=== PATIENT | male | born 1970 | race Caucasian/White ===

== ENCOUNTER 2016-06-29 15:34 | Emergency (ER) | payer SELFPAY ==
[~2016-06-29] VITALS: Ht 182.9 cm; Wt 148.0 kg
[2016-06-29] VITALS (7 sets, daily range): BP systolic 107–143; BP diastolic 51–87; PULSE 78–99; RESP 16–20; TEMP 97.7–99.1; O2SAT 95–97
[~2016-06-29 15:34] MED LIST: DESE1CRE TOP; HYDR-3533 PO; HYDR1CRE TOP
--- NOTE | 2016-06-29 17:01 | RADHPO ---
EXAM DATE/TIME: 06/29/2016 16:22 [facility] COMPARISON: No previous studies available for comparison. INDICATIONS : Left shoulder pain after fall. MEDICAL HISTORY : None. SURGICAL HISTORY : None. ENCOUNTER: Initial ACUITY: 1 day PAIN SCORE: 9/10 LOCATION: Left shoulder FINDINGS: Multiple view examination of the left shoulder demonstrates no evidence of fracture or dislocation. The glenohumeral and acromioclavicular joints are maintained. There is normal range of motion betwee n internal and external rotation. Bony mineralization is normal. CONCLUSION: Negative trauma study. Talha Frias MD on June 29, 2016 at 16:59 Board Certified Radiologist. This report was verified electronically.
[2016-06-29] MEDS ORDERED: cefTRIAXone INJ 1,000 MG in SODIUM CHLORIDE 0.9% INJ 100 ML IV ONE (19:15)
[2016-06-29] MEDS ORDERED: SODIUM CHLOR 0.9% 1000 ML INJ 1,000 ML IV SCH (19:15)
[2016-06-29] MEDS ORDERED: CLINDAMYCIN INJ 900 MG in SODIUM CHLORIDE 0.9% INJ 100 ML IV ONE (19:15)
[2016-06-29] MEDS ORDERED: MORPHINE SULFATE 8 MG/ML INJ IV PUSH ONE (19:15)
[2016-06-29] MEDS ORDERED: SODIUM CHLORIDE 0.9% FLUSH 5 ML FLUSH IVF PRN (19:15)
[2016-06-29 19:59] LABS: AUTOMATED NEUTROPHIL # 6.2 TH/MM3 (1.8-7.7); BASOPHIL # 0.1 TH/MM3 (0-0.2); BASOPHIL % 0.6 % (0.0-2.0); EOSINOPHIL # 0.2 TH/MM3 (0-0.4); EOSINOPHIL % 1.7 % (0.0-4.0); HEMATOCRIT 43.6 % (39.0-51.0); HEMO FLAGS DIFF FINAL; LYMPH % 27.3 % (9.0-44.0); LYMPHOCYTE # 2.9 TH/MM3 (1.0-4.8); MEAN CELL VOLUME 88.4 FL (80.0-100.0); MEAN CORPUSCULAR HEMOGLOBIN 30.4 PG (27.0-34.0); MEAN CORPUSCULAR HGB CONC 34.4 % (32.0-36.0); MONO % 10.9 % (0.0-8.0); NEUT % 59.5 % (16.0-70.0); PLATELET COUNT 232 TH/MM3 (150-450); RED BLOOD COUNT 4.93 MIL/MM3 (4.50-5.90); RED CELL DISTRIBUTION WIDTH 12.2 % (11.6-17.2); WHITE BLOOD COUNT 10.5 TH/MM3 (4.0-11.0)
[2016-06-29 20:08] LABS: CHLORIDE 101 MEQ/L (98-107); POTASSIUM 3.7 MEQ/L (3.5-5.1); SODIUM (NA) 136 MEQ/L (136-145)
[2016-06-29 20:12] LABS: ANION GAP 8 MEQ/L (5-15); BICARBONATE 26.6 MEQ/L (21.0-32.0); BLOOD UREA NITROGEN 11 MG/DL (7-18)
[2016-06-29 20:13] LABS: APTT (PATIENT) 30.1 SEC (24.3-30.1); PROTHROMBIN TIME - PATIENT 10.7 SEC (9.8-11.6)
[2016-06-29 20:14] LABS: ALT (GPT) 32 U/L (12-78)
[2016-06-29 20:15] LABS: AST (GOT) 14 U/L (15-37); GLOMERULAR FILTRATION RATE 81 ML/MIN (>89)
[2016-06-29 20:16] LABS: TOTAL BILIRUBIN ADULT 1.1 MG/DL (0.2-1.0)
[2016-06-29 20:17] LABS: ALKALINE PHOSPHATASE 76 U/L (45-117)
[2016-06-29] MEDS ORDERED: IOHEXOL 350 MG/ML 10 ML VIAL (for RAD DIAG) IV ONE (20:24)
--- NOTE | 2016-06-29 20:47 | RADHPO ---
EXAM DATE/TIME: 06/29/2016 20:18 [facility] COMPARISON: CT ABDOMEN & PELVIS W CONTRAST, December 11, 2014, 14:34. INDICATIONS : Bilateral inguinal pain following injury moving heavy object. IV CONTRAST: 100 cc Omnipaque 350 (iohexol) IV ORAL CONTRAST: No oral contrast ingested. RADIATION DOSE: 26.80 CTDIvol (mGy) MEDICAL HISTORY : Hernia. Hepatitis C. Diabetes mellitus type 2. SURGICAL HISTORY : None. ENCOUNTER: Initial ACUITY: 1 day PAIN SCALE: 9/10 LOCATION: Bilateral inguinal TECHNIQUE: Volumetric scanning of the abdomen and pelvis was performed. Using automated exposure control and adjustment of the mA and/or kV according to patient size, radiation dose was kept as low as reasonably achievable to obtain optimal diagnostic quality images. FINDINGS: There is diverticula at the junction between the descending and sigmoid portions of the colon with surrounding inflammatory change. No abscess is seen. There are other scattered diverticu la seen in the transverse and descending portions of the colon without inflammatory change. There is fatty infiltration of the liver. The liver is enlarged measuring at least 24 cm in length. T he spleen, pancreas, and adrenal glands are normal. There is a 5 mm nonobstructing left renal stone. This was present previously. The bony structures are grossly intact. The lung bases are clear. CONCLUSION: 1. Focal area diverticulitis at the junction between the descending and sigmoid portions of the colon . 2. Fatty infiltration of the liver. 3. Nonobstructing left renal stone. Otis Mejia MD on June 29, 2016 at 20:34 Board Certified Radiologist. This report was verified electronically.
[2016-06-29 21:44] LABS: BLOOD, URINE NEG (NEG); GLUCOSE,URINE NEG (NEG); KETONE, URINE NEG (NEG); PH, URINE 5.5 (5.0-8.5)
[2016-06-29] MEDS ORDERED: HYDROmorphone HCL PF 1 MG/ML VIAL IV PUSH ONE (21:45)
[2016-06-29 21:46] LABS: NITRITE,URINE POS (NEG)
--- NOTE | 2016-06-29 21:49 | RADHPO ---
EXAM DATE/TIME: 06/29/2016 20:46 [facility] COMPARISON: No previous studies available for comparison. INDICATIONS : Testicular pain. MEDICAL HISTORY : Hepatitis C. Diabetes. Asthma. SURGICAL HISTORY : Scrotum surgery x2. Hernia repair. ENCOUNTER: Initial ACUITY: 2 days PAIN SCORE: 9/10 LOCATION: Bilateral scrotum. MEASUREMENTS: RIGHT TESTICLE: 5.0 x 4.0 x 2.0cm LEFT TESTICLE: 3.5 x 3.9 x 2.3cm FINDINGS: RIGHT TESTICLE: Homogeneous echotexture without intra or extratesticular mass. Blood flow is symmetric and within no rmal limits. There is a mild right hydrocele. No varicocele is present. The epididymis appears mild ly prominent. There is a 3 mm cyst in the epididymal head. LEFT TESTICLE: Homogeneous echotexture without intra or extratesticular mass. Blood flow is symmetric and within no rmal limits. There is a mild left hydrocele. No varicocele is seen. The epididymis appears prominen t with a 1.5 center cyst at the tail and a 0.9 cm cyst at the epididymal body. SCROTUM: Within normal limits. CONCLUSION: 1. The testicles appear normal. 2. The epididymides appear prominent especially on the left. 3. Mild hydroceles Otis Mejia MD on June 29, 2016 at 21:43 Board Certified Radiologist. This report was verified electronically.
[2016-06-29 22:04] LABS: URINE COLOR AMBER (YELLW/STRAW)
[2016-06-29 22:05] LABS: COMMENT (UR) CULTURE INDICATED; CULTURE IF INDICATED CULTURE INDICATED; RBC, URINE 0-3 /hpf (0-3); SQUAMOUS EPITHELIAL CELL URINE 0-5 /hpf (0-5); WBC, URINE 0-2 /hpf (0-5)
--- NOTE | 2016-06-29 22:15 | PD ---
HPI Chief Complaint: Skin Problem Time Seen by Provider: 18:56 Travel History International Travel<30 days: No Contact w/Intl Traveler<30days: No Traveled to known affect area: No History of Present Illness HPI Patient 46-year-old male presents for several complaints. Patient's chief complaint is that he is covered an abscess in the right side of his scrotum present for over a week.. Patient states that he has had to have drainage of significant abscess which she describes a product label and ball size sometime in the past. Patient has been evaluated since then for multiple scrotal abscess. Does have a history of diabetes does not take any medicine for that. Patient does have a secondary complaint of left lower quadrant abdominal pain. States this is been gradually worsening over the day, denies any fevers diarrhea blood in the stool. Endorses mild nausea without vomiting. Patient has a tertiary complaint of left shoulder pain after moving a heavy object yesterday. States he hurts him when he lifts his arm up. Patient denies any fever dysuria. PFSH Past Medical History Asthma: Yes Diabetes: Yes Patient Takes Glucophage: No Hepatitis: Yes (C) Past Surgical History Genitourinary Surgery: Yes (ON SCROTUM X 2 ) Other Surgery: Yes (HERNIA) Social History Alcohol Use: No Tobacco Use: Yes (1 PACK) Substance Use: No Allergies-Medications (Allergen,Severity, Reaction): Coded Allergies: Penicillin (Verified Allergy, Unknown, Unknown , 06/29/16) Patient can't remember. Reported Meds & Prescriptions Reported Meds & Active Scripts Active [place] (Hydrocodone-Acetaminophen) 5-325 mg Tab 1 Tab PO Q6H PRN Metformin (Metformin HCl) 500 Mg Tab 500 Mg PO BIDPC With meals Bactrim DS (Sulfamethoxazole-Trimethoprim) 800-160 Mg Tab 1 Tab PO BID Flagyl (Metronidazole) 500 Mg Tab 500 Mg PO BID 7 Days Cipro (Ciprofloxacin HCl) 500 Mg Tab 500 Mg PO BID 7 Days Zofran Odt (Ondansetron Odt) 4 Mg Tab 4 Mg SL Q6HR PRN Review of Systems Except as stated in HPI: all other systems reviewed are Neg Physical Exam Narrative GENERAL: Well-developed well-nourished no apparent distress SKIN: Warm and dry. HEAD: Atraumatic. Normocephalic. EYES: Pupils equal and round. No scleral icterus. No injection or drainage. ENT: No nasal bleeding or discharge. Mucous membranes pink and moist. NECK: Trachea midline. No JVD. CARDIOVASCULAR: Regular rate and rhythm. No murmur appreciated. RESPIRATORY: No accessory muscle use. Clear to auscultation. Breath sounds equal bilaterally. GASTROINTESTINAL: Abdomen soft, minimally tender left lower quadrant, nondistended. Hepatic and splenic margins not palpable Genitourinary: Patient is a very small pustule on the right side of the scrotum , minimal surrounding induration approximately 1 cm. No surrounding cellulitis or crepitus. MUSCULOSKELETAL: No obvious deformities. No clubbing. No cyanosis. No edema patient has some minimal tenderness on abduction of the left shoulder, is full passive range of motion. Pulses motor and sensory intact distally in all 4 extremity is, left elbow normal, right shoulder normal.. NEUROLOGICAL: Awake and alert. No obvious cranial nerve deficits. Motor grossly within normal limits. Normal speech. PSYCHIATRIC: Appropriate mood and affect; insight and judgment normal. Data Data Last Documented VS Vital Signs Date Time Temp Pulse Resp B/P Pulse Ox O2 Delivery O2 Flow Rate FiO2 06/29/16 23:31 97.7 88 18 111/69 95 06/29/16 22:00 Room Air Orders Shoulder, Complete (>2vws) (06/29/16 ) Complete Blood Count With Diff (06/29/16 19:15) Comprehensive Metabolic Panel (06/29/16 19:15) Lipase (06/29/16 19:15) Lactic Acid (06/29/16 19:15) Prothrombin Time / Inr (Pt) (06/29/16 19:15) Act Partial Throm Time (Ptt) (06/29/16 19:15) Urinalysis - C+S If Indicated (06/29/16 19:15) Ct Abd/Pel W Iv Contrast(Rout) (06/29/16 19:15) Iv Access Insert/Monitor (06/29/16 19:15) Ecg Monitoring (06/29/16 19:15) Oximetry (06/29/16 19:15) Sodium Chlor 0.9% 1000 Ml Inj (Ns 1000 M (06/29/16 19:15) Sodium Chloride 0.9% Flush (Ns Flush) (06/29/16 19:15) Morphine Inj (Morphine Inj) (06/29/16 19:15) Ceftriaxone Inj (Rocephin Inj) (06/29/16 19:15) Clindamycin Inj (Cleocin Inj) (06/29/16 19:15) Us Testicles W Doppler (06/29/16 19:15) Iohexol 350 Inj (Omnipaque 350 Inj) (06/29/16 20:24) Hydromorphone Pf Inj (Dilaudid Pf Inj) (06/29/16 21:45) Urine Culture (06/29/16 21:30) Labs Laboratory Tests Test 06/29/16 06/29/16 19:50 21:30 White Blood Count 10.5 TH/MM3 Red Blood Count 4.93 MIL/MM3 Hemoglobin 15.0 GM/DL Hematocrit 43.6 % Mean Corpuscular Volume 88.4 FL Mean Corpuscular Hemoglobin 30.4 PG Mean Corpuscular Hemoglobin 34.4 % Concent Red Cell Distribution Width 12.2 % Platelet Count 232 TH/MM3 Mean Platelet Volume 8.6 FL Neutrophils (%) (Auto) 59.5 % Lymphocytes (%) (Auto) 27.3 % Monocytes (%) (Auto) 10.9 % Eosinophils (%) (Auto) 1.7 % Basophils (%) (Auto) 0.6 % Neutrophils # (Auto) 6.2 TH/MM3 Lymphocytes # (Auto) 2.9 TH/MM3 Monocytes # (Auto) 1.1 TH/MM3 Eosinophils # (Auto) 0.2 TH/MM3 Basophils # (Auto) 0.1 TH/MM3 CBC Comment DIFF FINAL Differential Comment Prothrombin Time 10.7 SEC Prothromb Time International 1.0 RATIO Ratio Activated Partial 30.1 SEC Thromboplast Time Sodium Level 136 MEQ/L Potassium Level 3.7 MEQ/L Chloride Level 101 MEQ/L Carbon Dioxide Level 26.6 MEQ/L Anion Gap 8 MEQ/L Blood Urea Nitrogen 11 MG/DL Creatinine 1.00 MG/DL Estimat Glomerular Filtration 81 ML/MIN Rate Random Glucose 242 MG/DL Lactic Acid Level 1.6 mmol/L Calcium Level 9.0 MG/DL Total Bilirubin 1.1 MG/DL Aspartate Amino Transf 14 U/L (AST/SGOT) Alanine Aminotransferase 32 U/L (ALT/SGPT) Alkaline Phosphatase 76 U/L Total Protein 7.6 GM/DL Albumin 3.8 GM/DL Lipase 194 U/L Urine Color JONATHAN Urine Turbidity CL Urine pH 5.5 Urine Specific [place] 1.028 Urine Protein TRACE mg/dL Urine Glucose (UA) NEG mg/dL Urine Ketones NEG mg/dL Urine Occult Blood NEG Urine Nitrite POS Urine Bilirubin NEG Urine Leukocyte Esterase NEG Urine RBC 0-3 /hpf Urine WBC 0-2 /hpf Urine Squamous Epithelial 0-5 /hpf Cells Urine Bacteria NONE /hpf Microscopic Urinalysis Comment CULTURE INDICATED MDM Medical Decision Making Medical Screen Exam Complete: Yes Emergency Medical Condition: Yes Differential Diagnosis Shoulder strain, shoulder strain, diverticulitis, 40s gangrene highly likely, scrotal abscess, torsion, urinary tract infection. Narrative Course Patient presents for multiple complaints. Chief complaint is right sided scrotal pain, patient has no evidence of abscess requiring intervention, severe infection nor ian's. He has a left shoulder sprain, diverticulitis on CT, and simple abscess which has already drained spontaneously on the right scrotum. He is stable for discharge. Multiple scripts written. Diagnosis Primary Impression: Diverticulitis Qualified Code: K57.32 - Diverticulitis of large intestine without perforation or abscess without bleeding Additional Impressions: Urinary tract infection Scrotal abscess Shoulder strain Qualified Code: S46.912A - Shoulder strain, left, initial encounter Med/Other Pt SpecificInfo: Prescription(s) given Scripts Hydrocodone-Acetaminophen ([place])5-325 mg Tab1 Tab PO Q6H PRN (PAIN) #10 TAB Ref 0 Prov:Jean-Claude Brown MD 06/29/16 Metformin 500 Mg [id number] Mg PO BIDPC #60 TAB Ref 0 With meals Prov:Jean-Claude Brown MD 06/29/16 Sulfamethoxazole-Trimethoprim (Bactrim DS)800-160 Mg Tab1 Tab PO BID #14 TAB Ref 0 Prov:eJan-Claude Brown MD 06/29/16 Metronidazole (Flagyl)500 Mg [id number] Mg PO BID 7 Days Ref 0 Prov:Jean-Claude Brown MD 06/29/16 Ciprofloxacin (Cipro)500 Mg [id number] Mg PO BID 7 Days Ref 0 Prov:Jean-Claude Brown MD 06/29/16 Ondansetron Odt (Zofran Odt)4 Mg Tab4 Mg SL Q6HR PRN (Nausea/Vomiting) #30 TAB Ref 0 Prov:Jean-Claude Brown MD 06/29/16 Disposition: 01 DISCHARGE HOME Condition: Stable Jean-Claude Brown MD Jun 29, 2016 22:15
[2016-06-29] MEDS ORDERED: CIPR-9 PO (22:21)
[2016-06-29] MEDS ORDERED: METR-1 PO (22:21)
[2016-06-29] MEDS ORDERED: METF500T PO (22:21)
[2016-06-29] MEDS ORDERED: ULTR50TA5 PO (22:21)
[2016-06-29] MEDS ORDERED: BACT800T5 PO (22:21)
[2016-06-29] MEDS ORDERED: ZOFR4TAB3 SL (22:21)
[2016-06-29] MEDS ORDERED: NORC5TAB PO (23:25)
== END 2016-06-29 23:45 | disposition home or self-care (01) ==
LOC: PHED 15:34
DX: K57.32 Diverticulitis of large intestine without perforation or abscess without bleeding (principal); N39.0 Urinary tract infection, site not specified; N49.2 Inflammatory disorders of scrotum; S46.912A Strain of unspecified muscle, fascia and tendon at shoulder and upper arm level, left arm, initial encounter; X50.0XXA Overexertion from strenuous movement or load, initial encounter
CPT/HCPCS: 73030; 74177; 76870; 80053; 81001; 83605; 83690; 85025; 85610; 85730; 87086; 93975; 96361; 96365; 96367; 96375; 99284; J0696; J1170; J2270; J7030; Q9967

== ENCOUNTER 2016-08-07 14:28 | Emergency (ER) | payer SELFPAY ==
[~2016-08-07] VITALS: Ht 182.9 cm; Wt 146.0 kg
[~2016-08-07 14:28] MED LIST changes: +BACT800T5 PO; +CIPR-9 PO; -DESE1CRE TOP; -HYDR-3533 PO; -HYDR1CRE TOP; +METF500T PO; +METR-1 PO; +NORC5TAB PO; +ZOFR4TAB3 SL
[2016-08-07 14:35] VITALS: BP 119/78; PULSE 93; RESP 16; TEMP 98.5; O2SAT 96
[2016-08-07 14:51] LABS: BLOOD, URINE SMALL (NEG); KETONE, URINE NEG (NEG); NITRITE,URINE NEG (NEG); PH, URINE 5.5 (5.0-8.5)
[2016-08-07] MEDS ORDERED: DIFL150T PO (14:56)
[2016-08-07] MEDS ORDERED: MICOCRE TOPICAL (14:56)
[2016-08-07] MEDS ORDERED: METF500T PO (14:56)
[2016-08-07 14:59] LABS: GLUCOSE,URINE 1000 OR GREATER mg/dL (NEG); METHOD OF COLLECTION CLEAN CATCH; URINE COLOR YELLOW (YELLW/STRAW)
--- NOTE | 2016-08-07 15:01 | PD ---
HPI Chief Complaint: Complaint Time Seen by Provider: 14:45 Travel History International Travel<30 days: No Contact w/Intl Traveler<30days: No Traveled to known affect area: No History of Present Illness HPI 46-year-old male with history of diabetes and recently treated for diverticulitis approximately 3 weeks ago presents emergency Department with painful phimosis. Patient is uncircumcised and has increasing redness, swelling , and pain to the head of the penis over the past several days. Patient is denies fever, chills, or difficulty urinating. Patient is type II diabetic on metformin 500 mg twice a day. Patient was recently treated for diverticulitis approximately 3 weeks ago with Cipro and Flagyl. This is improved. Patient is almost out of his metformin and has appointment with his new primary care physician on 30 August. Patient is allergic to penicillin. PFSH Past Medical History Asthma: Yes Diabetes: Yes Hepatitis: Yes (C) Past Surgical History Genitourinary Surgery: Yes (ON SCROTUM X 2 ) Other Surgery: Yes (HERNIA) Social History Alcohol Use: No Tobacco Use: Yes (1 PACK) Substance Use: No Allergies-Medications (Allergen,Severity, Reaction): Coded Allergies: Penicillin (Verified Allergy, Unknown, Unknown , 06/29/16) Patient can't remember. Reported Meds & Prescriptions Reported Meds & Active Scripts Active Pyridium (Phenazopyridine HCl) 200 Mg Tab 200 Mg PO Q8H PRN Metformin (Metformin HCl) 500 Mg Tab 500 Mg PO BIDPC With meals Miconazole 7 Vaginal Cream 2% Cream 1 Appl TOPICAL TID Diflucan (Fluconazole) 150 Mg Tab 150 Mg PO ONCE [place] (Hydrocodone-Acetaminophen) 5-325 mg Tab 1 Tab PO Q6H PRN Bactrim DS (Sulfamethoxazole-Trimethoprim) 800-160 Mg Tab 1 Tab PO BID Flagyl (Metronidazole) 500 Mg Tab 500 Mg PO BID 7 Days Cipro (Ciprofloxacin HCl) 500 Mg Tab 500 Mg PO BID 7 Days Zofran Odt (Ondansetron Odt) 4 Mg Tab 4 Mg SL Q6HR PRN Review of Systems Except as stated in HPI: all other systems reviewed are Neg General / Constitutional: No: Fever Eyes: No: Visual changes HENT: No: Headaches Cardiovascular: No: Chest Pain or Discomfort Respiratory: No: Shortness of Breath Gastrointestinal: No: Abdominal Pain Genitourinary: No: Dysuria Musculoskeletal: No: Pain Skin: No Rash Neurologic: No: Weakness Psychiatric: No: Depression Endocrine: No: Polydipsia Hematologic/Lymphatic: No: Easy Bruising Physical Exam Narrative GENERAL: Patient appears in moderate distress. SKIN: Warm and dry. Normal color. Normal turgor. Patient has angry appearing phimosis with pain with attempted retraction of the foreskin, consistent with yeast infection. Patient has mild erythema to the anterior scrotum as well with satellite lesions consistent with yeast infection. No signs of cellulitis or abscess was noted. HEAD: Atraumatic. Normocephalic. EYES: Pupils equal and round. No scleral icterus. No injection or drainage. ENT: No nasal bleeding or discharge. Mucous membranes pink and moist. Pharynx is clear. NECK: Trachea midline. No JVD. CARDIOVASCULAR: Regular rate and rhythm. RESPIRATORY: No accessory muscle use. Clear to auscultation. Breath sounds equal bilaterally. GASTROINTESTINAL: Abdomen soft, non-tender, nondistended. Hepatic and splenic margins not palpable. No CVA tenderness. MUSCULOSKELETAL: Extremities without clubbing, cyanosis, or edema. No obvious deformities. NEUROLOGICAL: Awake and alert. No obvious cranial nerve deficits. Motor grossly within normal limits. Five out of 5 muscle strength in the arms and legs. Normal speech. PSYCHIATRIC: Appropriate mood and affect; insight and judgment normal. Data Data Last Documented VS Vital Signs Date Time Temp Pulse Resp B/P Pulse Ox O2 Delivery O2 Flow Rate FiO2 08/07/16 14:35 98.5 93 16 119/78 96 Orders Urinalysis - C+S If Indicated (08/07/16 14:39) Urine Culture (08/07/16 14:45) Labs Laboratory Tests Test 08/07/16 14:45 Urine Collection Type CLEAN CATCH Urine Color YELLOW Urine Turbidity CLEAR Urine pH 5.5 Urine Specific [place] 1.030 Urine Protein NEG mg/dL Urine Glucose (UA) 1000 OR GREATER mg/dL Urine Ketones NEG mg/dL Urine Occult Blood SMALL Urine Nitrite NEG Urine Bilirubin NEG Urine Leukocyte Esterase TRACE Urine RBC 10-14 /hpf Urine WBC 9-14 /hpf Urine WBC Clumps OCC Urine Squamous Epithelial > 8 /hpf Cells Urine Yeast with Hyphae OCC Microscopic Urinalysis Comment CULTURE INDICATED Urine Collection Time 14:45 [facility] Medical Decision Making Medical Screen Exam Complete: Yes Emergency Medical Condition: Yes Medical Record Reviewed: Yes Differential Diagnosis Phimosis. Yeast infection. Type 2 diabetes. Narrative Course Patient is medically stable at time of exam. Urinalysis is sent and shows probable urinary tract infection. Patient is given Keflex 500 mg 3 times a day for 7 days. Patient will be treated with Diflucan 150 mg one now and repeat in one week if symptoms continue. Patient is given miconazole cream to be placed to the affected area 3 times daily. Patient is given a refill of metformin 500 mg twice a day #60. Patient is given Pyridium 200 mg 1 3 times a day when necessary #15. Patient is to follow with his primary care physician as currently scheduled. Patient can return the emergency Department with worsening symptoms as needed. Diagnosis Primary Impression: Phimosis Additional Impressions: Skin yeast infection Type 2 diabetes mellitus Qualified Code: E11.9 - Type 2 diabetes mellitus without complication, without long-term current use of insulin Urinary tract infection Qualified Code: N30.00 - Acute cystitis without hematuria Referrals: Primary Care Physician Patient Instructions: General Instructions, Skin Yeast Infection (ED) Additional Instructions: Patient will be treated with Diflucan 150 mg one now and repeat in one week if symptoms continue. Patient is given miconazole cream to be placed to the affected area 3 times daily. Patient is given a refill of metformin 500 mg twice a day #60. Patient is given Pyridium 200 mg 1 3 times a day when necessary #15. Patient is to follow with his primary care physician as currently scheduled. Patient can return the emergency Department with worsening symptoms as needed. Med/Other Pt SpecificInfo: Prescription(s) given Scripts Phenazopyridine (Pyridium)200 Mg Lam797 Mg PO Q8H PRN (DYSURIA) #15 TAB Ref 0 Prov:Celeste Rose MD 08/07/16 Metformin 500 Mg [id number] Mg PO BIDPC #60 TAB Ref 0 With meals Prov:Celeste Rose MD 08/07/16 Miconazole 7 Vaginal Cream 2% Cream1 Appl TOPICAL TID #1 BOX Ref 0 Prov:Celeste Rose MD 08/07/16 Fluconazole (Diflucan)150 Mg [id number] Mg PO ONCE #1 TAB Ref 1 Prov:Celeste Rose MD 08/07/16 Disposition: 01 DISCHARGE HOME Condition: Stable Cheo Myers Aug 07, 2016 15:01
[2016-08-07] MEDS ORDERED: PYRI200T4 PO (15:02)
[2016-08-07 15:03] LABS: SQUAMOUS EPITHELIAL CELL URINE > 8 /hpf (0-5)
[2016-08-07 15:05] LABS: COMMENT (UR) CULTURE INDICATED; CULTURE IF INDICATED CULTURE INDICATED
[2016-08-07] MEDS ORDERED: CEPH-460 PO (15:14)
== END 2016-08-07 15:46 | disposition home or self-care (01) ==
LOC: PHED 14:28
DX: N47.1 Phimosis (principal); B37.2 Candidiasis of skin and nail; N39.0 Urinary tract infection, site not specified; E11.9 Type 2 diabetes mellitus without complications; J45.909 Unspecified asthma, uncomplicated; B19.20 Unspecified viral hepatitis C without hepatic coma; F17.210 Nicotine dependence, cigarettes, uncomplicated; Z79.84 Long term (current) use of oral hypoglycemic drugs
CPT/HCPCS: 81001; 87086; 99283

== ENCOUNTER 2016-09-07 12:52 | Emergency (ER) | payer SELFPAY ==
[~2016-09-07] VITALS: Ht 182.9 cm; Wt 140.0 kg
[~2016-09-07 12:52] MED LIST changes: -BACT800T5 PO; +CEPH-460 PO; +DIFL150T PO; -METR-1 PO; -NORC5TAB PO; -ZOFR4TAB3 SL
[2016-09-07 12:58] VITALS: BP 125/88; PULSE 98; RESP 18; TEMP 98.1; O2SAT 95
[2016-09-07] MEDS ORDERED: SODIUM CHLOR 0.9% 1000 ML INJ 1,000 ML IV SCH (13:26)
[2016-09-07] MEDS ORDERED: MORPHINE SULFATE 4 MG/ML INJ IV PUSH ONE ×2 (13:30→15:45)
[2016-09-07] MEDS ORDERED: SODIUM CHLORIDE 0.9% FLUSH 10 ML FLUSH IVF PRN (13:30)
--- NOTE | 2016-09-07 13:42 | PD ---
HPI Chief Complaint: Complaint Time Seen by Provider: 13:12 Travel History International Travel<30 days: No Contact w/Intl Traveler<30days: No Traveled to known affect area: No History of Present Illness HPI Patient is a 46-year-old male with hx of DM and uncircumcised phallus who presents to emergency room with multiple complaints. Patient reports that since June, he has been having episodes of incontinence of urine. Reports that he feels as if foreskin is stuck over the head of his penis - reports that "I'm uncircumcised and I can't get the skin over the head of my penis." Reports that he has had phimosis since June and reports that he was seen in the ER for this and was told to follow up with urology but reports "i don't have insurance and money to go to a urologist and have this taken care of." Patient inquires if he can have a circumcision while in the ER. Patient understands that this cannot be performed here and that he will need to be followed up with urologist for this. Patient reports that he keeps on getting abscesses to his scrotum. Reports that he noticed 2 abscesses forming to his scrotum 4 days ago, reports that he "popped" one of them yesterday while in the shower. Reports that "I keep getting these abscesses on my scrotum and they won 't go away." Patient denies any fevers or chills. Denies n/v. Tetanus is not up to date. PFSH Past Medical History Asthma: Yes Diabetes: Yes Patient Takes Glucophage: Yes Diminished Hearing: No Hepatitis: Yes (C) ?: Not Past Surgical History Genitourinary Surgery: Yes (ON SCROTUM X 2 ) Other Surgery: Yes (HERNIA) Social History Alcohol Use: No Tobacco Use: Yes (1 PACK) Substance Use: No Allergies-Medications (Allergen,Severity, Reaction): Coded Allergies: Penicillin (Verified Allergy, Unknown, Unknown , 06/29/16) Patient can't remember. Reported Meds & Prescriptions Reported Meds & Active Scripts Active Lortab (Hydrocodone-Acetaminophen) 5-325 Mg Tab 1 Tab PO Q4H PRN Clindamycin (Clindamycin HCl) 300 Mg Cap 300 Mg PO TID 10 Days Clotrimazole Topical (Clotrimazole) 1% Soln 1 Applic TOPICAL BID Metformin (Metformin HCl) 500 Mg Tab 500 Mg PO BIDPC With meals Review of Systems General / Constitutional: No: Fever, Chills Eyes: No: Visual changes HENT: No: Headaches Cardiovascular: No: Chest Pain or Discomfort Respiratory: No: Shortness of Breath Gastrointestinal: No: Abdominal Pain Genitourinary: No: Dysuria Musculoskeletal: No: Pain Skin: Positive Other (scrotal abscesses), No Rash Neurologic: No: Weakness Psychiatric: No: Depression Endocrine: No: Polydipsia Hematologic/Lymphatic: No: Easy Bruising Physical Exam Narrative GENERAL: NAD, Nontoxic SKIN: Focused skin assessment warm/dry. HEAD: Atraumatic. Normocephalic. EYES: Pupils equal and round. No scleral icterus. No injection or drainage. ENT: No nasal bleeding or discharge. Mucous membranes pink and moist. NECK: Trachea midline. No JVD. CARDIOVASCULAR: Regular rate and rhythm. No murmur appreciated. RESPIRATORY: No accessory muscle use. Clear to auscultation. Breath sounds equal bilaterally. GASTROINTESTINAL: Abdomen soft, non-tender, nondistended. Hepatic and splenic margins not palpable. : exam performed with LIZABETH Ramirez at bedside, patient with uncircumcised phallus, patient does have phimosis on exam, I am unable to retract his foreskin but there is area of redness and irritation to his foreskin, most likely compatible with Angela infection, patient does have 2 abscesses to his lower scrotum. abscess #1 is open and draining with no surrounding cellulitis, abscess #2 is nonfluctuant on exam with no surrounding cellulitis, there is no evidence of ian's gangrene, no obvious penile discharge MUSCULOSKELETAL: No obvious deformities. No clubbing. No cyanosis. No edema. NEUROLOGICAL: Awake and alert. No obvious cranial nerve deficits. Motor grossly within normal limits. Normal speech. PSYCHIATRIC: Appropriate mood and affect; insight and judgment normal. Data Data Last Documented VS Vital Signs Date Time Temp Pulse Resp B/P Pulse Ox O2 Delivery O2 Flow Rate FiO2 09/07/16 15:02 17 09/07/16 12:58 98.1 98 125/88 95 Orders Complete Blood Count With Diff (09/07/16 13:26) Basic Metabolic Panel (Bmp) (09/07/16 13:26) Gc And Chlamydia Pcr (09/07/16 13:26) Ua Includes Microscopic (09/07/16 13:26) Iv Access Insert/Monitor (09/07/16 13:26) Sodium Chloride 0.9% Flush (Ns Flush) (09/07/16 13:30) Us Testicles W Doppler (09/07/16 ) Morphine Inj (Morphine Inj) (09/07/16 13:30) Sodium Chlor 0.9% 1000 Ml Inj (Ns 1000 M (09/07/16 13:26) Clindamycin Inj (Cleocin Inj) (09/07/16 13:45) Tetanus/Diphtheria Tox Adult (Tetanus/Di (09/07/16 13:45) Insulin Human Regular Inj (Novolin R Inj (09/07/16 15:15) Ketorolac Inj (Toradol Inj) (09/07/16 15:15) Sodium Chlor 0.9% 1000 Ml Inj (Ns 1000 M (09/07/16 15:30) Mandatory Outpatient Referral (09/07/16 15:28) Morphine Inj (Morphine Inj) (09/07/16 15:45) Labs Laboratory Tests Test 09/07/16 09/07/16 13:50 14:00 Urine Collection Type CLEAN CATCH Urine Color YELLOW Urine Turbidity CLEAR Urine pH 6.0 Urine Specific [place] 1.015 Urine Protein NEG mg/dL Urine Glucose (UA) 1000 OR GREATER mg/dL Urine Ketones NEG mg/dL Urine Occult Blood NEG Urine Nitrite NEG Urine Bilirubin NEG Urine Leukocyte Esterase NEG Urine RBC 0-3 /hpf Urine Squamous Epithelial 0-5 /hpf Cells Urine Collection Time 13:50 White Blood Count 6.7 TH/MM3 Red Blood Count 5.05 MIL/MM3 Hemoglobin 15.0 GM/DL Hematocrit 44.1 % Mean Corpuscular Volume 87.2 FL Mean Corpuscular Hemoglobin 29.7 PG Mean Corpuscular Hemoglobin 34.1 % Concent Red Cell Distribution Width 12.9 % Platelet Count 247 TH/MM3 Mean Platelet Volume 9.2 FL Neutrophils (%) (Auto) 38.4 % Lymphocytes (%) (Auto) 47.9 % Monocytes (%) (Auto) 9.8 % Eosinophils (%) (Auto) 3.3 % Basophils (%) (Auto) 0.6 % Neutrophils # (Auto) 2.6 TH/MM3 Lymphocytes # (Auto) 3.2 TH/MM3 Monocytes # (Auto) 0.7 TH/MM3 Eosinophils # (Auto) 0.2 TH/MM3 Basophils # (Auto) 0.0 TH/MM3 CBC Comment DIFF FINAL Differential Comment Sodium Level 136 MEQ/L Potassium Level 4.2 MEQ/L Chloride Level 101 MEQ/L Carbon Dioxide Level 24.8 MEQ/L Anion Gap 10 MEQ/L Blood Urea Nitrogen 14 MG/DL Creatinine 1.10 MG/DL Estimat Glomerular Filtration 72 ML/MIN Rate Random Glucose 442 MG/DL Calcium Level 9.0 MG/DL MDM Medical Decision Making Medical Screen Exam Complete: Yes Emergency Medical Condition: Yes Interpretation(s) Vital Signs Date Time Temp Pulse Resp B/P Pulse Ox O2 Delivery O2 Flow Rate FiO2 09/07/16 12:58 98.1 98 18 125/88 95 Differential Diagnosis Scrotal abscess, Ian's Gangrene though very unlikely, urethritis, candidal infection to his penis, uti Narrative Course Patient is a 46-year-old male who presents to emergency room with multiple complaints. 1) patient reports that he has phimosis, he has had this since June. Patient does have appear to have irritation around his foreskin, patient with most likely candidal infection to his foreskin. 2) patient has 2 abscesses to his scrotum. Abscess #1 appears to be open and draining, abscess #2 appears to be nonfluctuant in nature. There is no surrounding cellulitis or inflammation. Plan to obtain ultrasound of his testicles to evaluate for gas forming organisms. abscess #2 cannot be I&D at this time as area is nonfluctuant. Plan to start antibiotics and recommended to patient need to apply warm compresses until abscess comes to a head. Will update pt's tetanus Patient has been seen in ER multiple times for phimosis and scrotal abscess. Patient unable to see uro as he has no insurance. Mandatory referral placed Laboratory Tests Test 09/07/16 09/07/16 13:50 14:00 Urine Collection Type CLEAN CATCH Urine Color YELLOW (YELLW/STRAW) Urine Turbidity CLEAR (CLEAR) Urine pH 6.0 (5.0-8.5) Urine Specific [place] 1.015 (1.002-1.035) Urine Protein NEG mg/dL (NEG-TRACE) Urine Glucose (UA) 1000 OR GREATER mg/dL (NEG) Urine Ketones NEG mg/dL (NEG) Urine Occult Blood NEG (NEG) Urine Nitrite NEG (NEG) Urine Bilirubin NEG (NEG) Urine Leukocyte Esterase NEG (NEG) Urine RBC 0-3 /hpf (0-3) Urine Squamous Epithelial 0-5 /hpf (0-5) Cells Urine Collection Time 13:50 White Blood Count 6.7 TH/MM3 (4.0-11.0) Red Blood Count 5.05 MIL/MM3 (4.50-5.90) Hemoglobin 15.0 GM/DL (13.0-17.0) Hematocrit 44.1 % (39.0-51.0) Mean Corpuscular Volume 87.2 FL (80.0-100.0) Mean Corpuscular Hemoglobin 29.7 PG (27.0-34.0) Mean Corpuscular Hemoglobin 34.1 % Concent (32.0-36.0) Red Cell Distribution Width 12.9 % (11.6-17.2) Platelet Count 247 TH/MM3 (150-450) Mean Platelet Volume 9.2 FL (7.0-11.0) Neutrophils (%) (Auto) 38.4 % (16.0-70.0) Lymphocytes (%) (Auto) 47.9 % (9.0-44.0) Monocytes (%) (Auto) 9.8 % (0.0-8.0) Eosinophils (%) (Auto) 3.3 % (0.0-4.0) Basophils (%) (Auto) 0.6 % (0.0-2.0) Neutrophils # (Auto) 2.6 TH/MM3 (1.8-7.7) Lymphocytes # (Auto) 3.2 TH/MM3 (1.0-4.8) Monocytes # (Auto) 0.7 TH/MM3 (0-0.9) Eosinophils # (Auto) 0.2 TH/MM3 (0-0.4) Basophils # (Auto) 0.0 TH/MM3 (0-0.2) CBC Comment DIFF FINAL Differential Comment Sodium Level 136 MEQ/L (136-145) Potassium Level 4.2 MEQ/L (3.5-5.1) Chloride Level 101 MEQ/L (98-107) Carbon Dioxide Level 24.8 MEQ/L (21.0-32.0) Anion Gap 10 MEQ/L (5-15) Blood Urea Nitrogen 14 MG/DL (7-18) Creatinine 1.10 MG/DL (0.60-1.30) Estimat Glomerular Filtration 72 ML/MIN (>89) Rate Random Glucose 442 MG/DL (74-106) Calcium Level 9.0 MG/DL (8.5-10.1) Last Impressions Scrotum Ultrasound 09/07/16 0000 Signed Impressions: Service Date/Time: Wednesday, September 07, 2016 14:26 - CONCLUSION: 1. The testicles are intrinsically normal. 2. Benign cystic structures in the left epididymal head most consistent with spermatoceles. 3. Hypoechoic area in the right epididymal head 4. Small hydroceles. Talha Frias MD I reviewed all labs and all studies with patient in detail. Patient will follow up with pcp and urologist and will return to ER as needed. Understands importance of medication compliance Diagnosis Primary Impression: Phimosis Additional Impressions: Scrotal abscess Skin yeast infection Hyperglycemia due to type 2 diabetes mellitus Qualified Code: E11.65 - Type 2 diabetes mellitus with hyperglycemia, with long-term current use of insulin Patient Instructions: General Instructions Additional Instructions: Please follow up with your primary care doctor as soon as possible Return to ER as needed Please take all antibiotics as prescribed Please follow up with all cultures from today Please follow up with urologist as soon as possible Return to ER if symptoms worsen or progress Please monitor your blood sugars carefully as your blood sugar was elevated today Scripts Hydrocodone-Acetaminophen (Lortab)5-325 Mg Tab1 Tab PO Q4H PRN (PAIN) #7 TAB Ref 0 Prov:Brenda Quijano DO 09/07/16 Clindamycin 300 Mg [id number] Mg PO TID 10 Days Ref 0 Prov:Brenda Quijano DO 09/07/16 Clotrimazole Topical 1% Soln1 Applic TOPICAL BID #10 ML Ref 0 Prov:Brenda Quijano DO 09/07/16 Disposition: 01 DISCHARGE HOME Condition: Stable Brenda Quijano DO Sep 07, 2016 13:42
[2016-09-07] MEDS ORDERED: CLINDAMYCIN INJ 900 MG in SODIUM CHLORIDE 0.9% INJ 100 ML IV ONE (13:45)
[2016-09-07] MEDS ORDERED: TETANUS/DIPHTHERIA TOXOID ADULT 0.5 ML VIAL IM ONE (13:45)
[2016-09-07] MEDS ORDERED: CLOTR1%T TOPICAL (13:51)
[2016-09-07] MEDS ORDERED: CLIN1CAP6 PO (13:52)
[2016-09-07 14:30] LABS: AUTOMATED NEUTROPHIL # 2.6 TH/MM3 (1.8-7.7); BASOPHIL % 0.6 % (0.0-2.0); EOSINOPHIL # 0.2 TH/MM3 (0-0.4); EOSINOPHIL % 3.3 % (0.0-4.0); HEMATOCRIT 44.1 % (39.0-51.0); HEMO FLAGS DIFF FINAL; LYMPH % 47.9 % (9.0-44.0); LYMPHOCYTE # 3.2 TH/MM3 (1.0-4.8); MEAN CELL VOLUME 87.2 FL (80.0-100.0); MEAN CORPUSCULAR HEMOGLOBIN 29.7 PG (27.0-34.0); MEAN CORPUSCULAR HGB CONC 34.1 % (32.0-36.0); MONO % 9.8 % (0.0-8.0); NEUT % 38.4 % (16.0-70.0); PLATELET COUNT 247 TH/MM3 (150-450); RED BLOOD COUNT 5.05 MIL/MM3 (4.50-5.90); RED CELL DISTRIBUTION WIDTH 12.9 % (11.6-17.2); WHITE BLOOD COUNT 6.7 TH/MM3 (4.0-11.0)
[2016-09-07 14:40] LABS: BLOOD, URINE NEG (NEG); KETONE, URINE NEG (NEG); NITRITE,URINE NEG (NEG)
[2016-09-07 14:41] LABS: GLUCOSE,URINE 1000 OR GREATER mg/dL (NEG)
[2016-09-07 14:42] LABS: METHOD OF COLLECTION CLEAN CATCH; URINE COLOR YELLOW (YELLW/STRAW)
[2016-09-07 14:43] LABS: POTASSIUM 4.2 MEQ/L (3.5-5.1)
[2016-09-07 14:44] LABS: RBC, URINE 0-3 /hpf (0-3); SQUAMOUS EPITHELIAL CELL URINE 0-5 /hpf (0-5)
[2016-09-07 14:46] LABS: BICARBONATE 24.8 MEQ/L (21.0-32.0)
[2016-09-07 15:10] VITALS: BP 148/76; PULSE 78; RESP 17
--- NOTE | 2016-09-07 15:13 | RADHPO ---
EXAM DATE/TIME: 09/07/2016 14:26 [facility] COMPARISON: US TESTICLE W/DOPPLER, June 29, 2016, 20:46. INDICATIONS : Testicle pain. Necrotizing fasciitis. MEDICAL HISTORY : Hepatitis C. Diabetes. Asthma. Testicle pain. Hernia. SURGICAL HISTORY : Scrotal surgery. Hernia repair. ENCOUNTER: Subsequent ACUITY: 4 - 6 days PAIN SCORE: 9/10 LOCATION: Bilateral testicles. MEASUREMENTS: RIGHT TESTICLE: 3.1 x 4.4 x 2.2cm LEFT TESTICLE: 3.1 x 4.3 x 2.3cm FINDINGS: RIGHT TESTICLE: Homogeneous echotexture without intra or extratesticular mass. Blood flow is symmetric and within no rmal limits. No varicocele. There is a small hydrocele. There is a small hypoechoic nodular area in the head of the epididymis measuring up to 11 x 15 x 6 mm. LEFT TESTICLE: Homogeneous echotexture without intra or extratesticular mass. Blood flow is symmetric and within no rmal limits. No varicocele. There is a small hydrocele. There are multiple cysts in the epididymis measuring up to 1.3 x 1 cm. SCROTUM: Within normal limits. CONCLUSION: 1. The testicles are intrinsically normal. 2. Benign cystic structures in the left epididymal head most consistent with spermatoceles. 3. Hypoechoic area in the right epididymal head 4. Small hydroceles. Talha Frias MD on September 07, 2016 at 15:08 Board Certified Radiologist. This report was verified electronically.
[2016-09-07] MEDS ORDERED: INSULIN HUMAN REGULAR 1,000 UNITS/10 ML VIAL SQ ONE (15:15)
[2016-09-07] MEDS ORDERED: KETOROLAC TROMETHAMINE 60 MG/2 ML (IM) VIAL IM ONE (15:15)
[2016-09-07] MEDS ORDERED: SODIUM CHLOR 0.9% 1000 ML INJ 1,000 ML IV ONE (15:30)
[2016-09-07] MEDS ORDERED: HYDR-3533 PO (15:56)
[2016-09-07 17:13] VITALS: BP 149/80; PULSE 82; RESP 17
--- NOTE | 2016-09-07 17:57 | RADHPO ---
EXAM DATE/TIME: 09/07/2016 17:27 [facility] COMPARISON: No previous studies available for comparison. INDICATIONS : Scrotal pain. ORAL CONTRAST: No oral contrast ingested. RADIATION DOSE: 24.12 CTDIvol (mGy) MEDICAL HISTORY : Hepatitis C. Diabetes mellitus type 2. SURGICAL HISTORY : Inguinal hernia repair. Scrotal surgery ENCOUNTER: Initial ACUITY: 4 - 6 days PAIN SCALE: 4/10 LOCATION: Bilateral pelvis TECHNIQUE: Volumetric scanning of the abdomen and pelvis was performed. Using automated exposure control and ad justment of the mA and/or kV according to patient size, radiation dose was kept as low as reasonably achievable to obtain optimal diagnostic quality images. FINDINGS: Examination of the lung bases demonstrates no abnormality. No pleural fluid is identified. No pulmona ry nodules are present. There is decreased density of the liver with respect to the spleen compatible with fatty infiltration . The spleen is unremarkable. The liver and spleen are normal in size and no focal defects are identi fied. The adrenal glands are unremarkable. The right kidney is unremarkable. There is a single stone within the left kidney without hydronephrosis measuring 4 mm in the lower pole. A retroaortic left re nal vein is present which can be seen as a normal variation. Examination of the pelvis demonstrates no evidence of free fluid or pelvic mass. No abnormally enlarg ed inguinal or retroperitoneal lymph nodes are present. The bladder is unremarkable. There is diverti culosis without evidence of diverticulitis. CONCLUSION: 1. No evidence of acute abdominal or pelvic process. No masses are identified. 2. Hypodense liver compatible with fatty infiltration or hepatocellular disease. 3. Diverticulosis without evidence of diverticulitis. 4. 4 mm nonobstructing left renal stone Maninder Yao MD on September 07, 2016 at 17:53 Board Certified Radiologist. This report was verified electronically.
[2016-09-07 20:01] LABS: CHLAMYDIA PCR NOT DETECTED (NOT DETECT); NEISSERIA PCR NOT DETECTED (NOT DETECT)
== END 2016-09-07 18:25 | disposition home or self-care (01) ==
LOC: PHED 12:52
DX: N47.1 Phimosis (principal); N49.2 Inflammatory disorders of scrotum; B37.2 Candidiasis of skin and nail; E11.65 Type 2 diabetes mellitus with hyperglycemia; F17.200 Nicotine dependence, unspecified, uncomplicated; Z23 Encounter for immunization; Z79.84 Long term (current) use of oral hypoglycemic drugs; Z87.09 Personal history of other diseases of the respiratory system; Z86.19 Personal history of other infectious and parasitic diseases
CPT/HCPCS: 74176; 76870; 80048; 81001; 85025; 87491; 87591; 90471; 90714; 93975; 96361; 96365; 96372; 96375; 96376; 99284; J1815; J1885; J2270; J7030

== ENCOUNTER 2017-02-11 16:00 | Emergency (ER) | payer SELFPAY ==
[~2017-02-11] VITALS: Ht 182.9 cm; Wt 128.0 kg
[~2017-02-11 16:00] MED LIST changes: -CEPH-460 PO; -CIPR-9 PO; +CLIN1CAP6 PO; +CLOTR1%T TOPICAL; -DIFL150T PO; +HYDR-3533 PO
[2017-02-11 16:07] VITALS: BP 138/72; PULSE 84; RESP 16; TEMP 99.3; O2SAT 98
--- NOTE | 2017-02-11 16:41 | PD ---
HPI Chief Complaint: shoulder/neck pain Time Seen by Provider: 16:30 Travel History International Travel<30 days: No Contact w/Intl Traveler<30days: No Traveled to known affect area: No History of Present Illness HPI 46-year-old male presents for evaluation of pain. He reports that prior to arrival he was throwing a bag of trash into a truck when he felt a pop in the right side of his neck/shoulder. He is now having pain in the right side of his neck/trapezius/shoulder region which is an aching pain. He reports that the pain radiates down the right arm and he has some paresthesias in the right first and second fingers. He has never had this problem before. Aggravated by movement. No alleviating factors. He has no other complaints at this time. [facility] Past Medical History Asthma: Yes Diabetes: Yes Diminished Hearing: No Hepatitis: Yes (C) Past Surgical History Genitourinary Surgery: Yes (ON SCROTUM X 2 ) Other Surgery: Yes (HERNIA) Social History Alcohol Use: No Tobacco Use: Yes (1 PACK) Substance Use: No Allergies-Medications (Allergen,Severity, Reaction): Coded Allergies: penicillin G (Unverified Allergy, Unknown, Unknown , 02/11/17) Patient can't remember. Reported Meds & Prescriptions Reported Meds & Active Scripts Active Metformin (Metformin HCl) 500 Mg Tab 500 Mg PO BIDPC With meals Review of Systems Except as stated in HPI: all other systems reviewed are Neg Physical Exam Narrative GENERAL: Well-nourished male in no acute distress SKIN: Warm and dry. CARDIOVASCULAR: Regular rate and rhythm. No murmur appreciated. RESPIRATORY: No accessory muscle use. Clear to auscultation. Breath sounds equal bilaterally. GASTROINTESTINAL: Abdomen soft, non-tender, nondistended. Hepatic and splenic margins not palpable. MUSCULOSKELETAL: No obvious deformities. Tender to palpation right cervical paravertebral musculature, right trapezius musculature and right glenohumeral joint. The patient has limited range of motion of the right shoulder secondary to pain. There is pain with passive range of motion of the shoulder. He has pain with rotation of the neck. NEUROLOGICAL: Awake and alert. No obvious cranial nerve deficits. Motor grossly within normal limits. Normal speech. Data Data Last Documented VS Vital Signs Date Time Temp Pulse Resp B/P (MAP) Pulse Ox O2 Delivery O2 Flow Rate FiO2 02/11/17 16:07 99.3 84 16 138/72 (94) 98 Room Air Orders Orders Ct Cerv Spine W/O Contrast (02/11/17 ) Shoulder, Limited(2vws) (02/11/17 ) Ketorolac Inj (Toradol Inj) (02/11/17 16:45) Orphenadrine Inj (Norflex Inj) (02/11/17 16:45) MDM Medical Decision Making Medical Screen Exam Complete: Yes Emergency Medical Condition: Yes Medical Record Reviewed: Yes Differential Diagnosis Herniated mucous pulposus, cervical radiculopathy, muscle strain, trapezius strain, rotator cuff strain Narrative Course 46-year-old male here with right-sided neck/shoulder pain after throwing a bag into a truck and feeling a pop. He reports that the pain radiates down the right arm and into the right first and second fingers with paresthesias in the right first and second fingers. CT imaging of the cervical spine, x-ray of the shoulder will be obtained. CT imaging reveals degenerative changes with no acute findings. X-ray imaging of the shoulder reveals no acute findings. At this point in time the plan will be discharged with the patient symptomatically with a sling for short-term use as well as diclofenac, baclofen. Recommend follow-up with primary care physician in one week for recheck. He is stable for discharge. Diagnosis Primary Impression: Cervical strain Qualified Codes: S16.1XXA - Strain of muscle, fascia and tendon at neck level , initial encounter Additional Impression: Shoulder strain Qualified Codes: S46.911A - Strain of unspecified muscle, fascia and tendon at shoulder and upper arm level, right arm, initial encounter Additional Instructions: Sling for short-term 1-2 days use only. Rest. Avoid strenuous activity. Medication as needed. Take diclofenac with meals. Do not drive or drink alcohol when taking baclofen. Follow up with primary care physician in one week for recheck. Return for any emergent medical conditions. Med/Other Pt SpecificInfo: Prescription(s) given Scripts Baclofen (Baclofen) 10 Mg Tab 10 MG PO Q8HR Y for MUSCLE SPASM for 10 Days, TAB 0 Refills Prov: Celeste Rose MD 02/11/17 Diclofenac Sodium (Diclofenac Sodium DR) 75 Mg Tabdr 75 MG PO BID for 10 Days, #20 TAB 0 Refills Prov: Celeste Rose MD 02/11/17 Disposition: 01 DISCHARGE HOME Condition: Stable Hung Hampton Feb 11, 2017 16:41
[2017-02-11] MEDS ORDERED: ORPHENADRINE INJ 60 MG/2 ML AMP IM ONE (16:45)
[2017-02-11] MEDS ORDERED: KETOROLAC TROMETHAMINE 60 MG/2 ML (IM) VIAL IM ONE (16:45)
--- NOTE | 2017-02-11 17:39 | RADRPT ---
EXAM DATE/TIME: 02/11/2017 16:59 [facility] COMPARISON: No previous studies available for comparison. INDICATIONS : Right shoulder pain. RADIATION DOSE: 26.65 CTDIvol (mGy) MEDICAL HISTORY : None SURGICAL HISTORY : None. ENCOUNTER: Initial ACUITY: 2 days PAIN SCALE: 10/10 LOCATION: Right shoulder TECHNIQUE: Volumetric scanning of the cervical spine was performed. Multiplanar reconstructions in the sagittal, coronal and oblique axial planes were performed. Using automated exposure control and adjustment o f the mA and/or kV according to patient size, radiation dose was kept as low as reasonably achievable to obtain optimal diagnostic quality images. DICOM format image data is available electronically f or review and comparison. FINDINGS: Vertebral body heights are maintained. Osseous structures are intact without evidence for acute bony fracture. Dens is intact. Sagittal alignment is maintained. There is a normal C1-2 relationship. Face ts are normally aligned. There is no significant prevertebral soft tissue hematoma. No significant ce rvical adenopathy or gross mass. Multilevel cervical degenerative spondylosis most prominently at C5- 7 with posterior disc osteophytes and mild facet arthropathy. Bony central canal appears patent. Bony neural foramina are grossly patent.. The thyroid appears unremarkable. Visualized lung apices are cl ear without pneumothorax. Incidental note of partial opacification of the right mastoid air cells. CONCLUSION: 1. No acute fracture or subluxation. 2. Mild degenerative spondylosis most notably at C5-7. No evidence for bony central canal stenosis or bony neural foraminal narrowing. 3. Partial opacification of the right mastoid air cells consistent with mastoiditis of unknown [place]i [place]. René Parson MD on February 11, 2017 at 17:33 Board Certified Radiologist. This report was verified electronically.
--- NOTE | 2017-02-11 17:40 | RADRPT ---
EXAM DATE/TIME: 02/11/2017 17:08 [facility] COMPARISON: No previous studies available for comparison. INDICATIONS : Right shoulder pain. MEDICAL HISTORY : Hepatitis C. Diabetes mellitus type 2. SURGICAL HISTORY : Inguinal hernia repair. Scrotal surgery ENCOUNTER: Initial ACUITY: 1 day PAIN SCORE: 10/10 LOCATION: Right upper extremity shoulder FINDINGS: Two view examination of the right shoulder demonstrates no evidence of fracture or dislocation. The glenohumeral and acromioclavicular joints are maintained. The visualized right upper ribs are intact . Bony mineralization is normal. CONCLUSION: No acute findings. Phillip Somers MD on February 11, 2017 at 17:38 Board Certified Radiologist. This report was verified electronically.
[2017-02-11] MEDS ORDERED: BACL10TA PO (18:08)
[2017-02-11] MEDS ORDERED: DICL75TA PO (18:08)
== END 2017-02-11 18:37 | disposition home or self-care (01) ==
LOC: PHEFT 16:00
DX: S16.1XXA Strain of muscle, fascia and tendon at neck level, initial encounter (principal); S46.911A Strain of unspecified muscle, fascia and tendon at shoulder and upper arm level, right arm, initial encounter; R20.2 Paresthesia of skin; E11.9 Type 2 diabetes mellitus without complications; F17.200 Nicotine dependence, unspecified, uncomplicated; Z79.84 Long term (current) use of oral hypoglycemic drugs; Z87.09 Personal history of other diseases of the respiratory system; Z86.19 Personal history of other infectious and parasitic diseases; X58.XXXA Exposure to other specified factors, initial encounter
CPT/HCPCS: 72125; 73030; 96372; 99285; J1885; J2360

== ENCOUNTER 2017-05-10 16:40 | Observation (INO) | payer SELFPAY ==
[~2017-05-10] VITALS: Ht 182.9 cm; Wt 124.2 kg
[~2017-05-10 16:40] MED LIST changes: +BACL10TA PO; -CLIN1CAP6 PO; -CLOTR1%T TOPICAL; +DICL75TA PO; -HYDR-3533 PO
[2017-05-10 16:50] VITALS: BP 127/78; PULSE 98; RESP 16; TEMP 98.9; O2SAT 99
[2017-05-10] MEDS ORDERED: VANCOMYCIN INJ 2,250 MG in SODIUM CHLORID 0.9% 500 ML INJ 500 ML IV ONE (18:45)
[2017-05-10] MEDS ORDERED: LIDOCAINE HCL 1% 50 ML VIAL INFIL ONE (18:45)
[2017-05-10] MEDS ORDERED: MORPHINE SULFATE 4 MG/ML INJ IV PUSH ONE (18:45)
--- NOTE | 2017-05-10 18:48 | PD ---
HPI Chief Complaint: Skin Problem Time Seen by Provider: 18:33 Travel History International Travel<30 days: No Contact w/Intl Traveler<30days: No Traveled to known affect area: No History of Present Illness HPI Patient is a 47-year-old male who comes in complaining of pain and swelling to his right knee. He says he thinks he was bit by something a few days ago. He says since then the area is gotten more red and swollen. He tried to drain part of the area today with a needle and says that it has been expelling yellow pus since then. He is a diabetic and has not had his metformin in a while. He also complains of a yeast infection in his groin. He denies any fever or chills. He has taken some Tylenol without much relief of his symptoms. He is able to move his knee, but has a lot of pain. PFSH Past Medical History Asthma: Yes Diabetes: Yes (type 2) Patient Takes Glucophage: No (RAN OUT ) Diminished Hearing: No Hepatitis: Yes (C) Past Surgical History Genitourinary Surgery: Yes (ON SCROTUM X 2 ) Other Surgery: Yes (HERNIA) Social History Alcohol Use: No Tobacco Use: Yes (1 PACK) Substance Use: No Allergies-Medications (Allergen,Severity, Reaction): Coded Allergies: oxycodone (Verified Allergy, Mild, Itching, 05/13/17) Reported Meds & Prescriptions Reported Meds & Active Scripts Active Review of Systems Except as stated in HPI: all other systems reviewed are Neg General / Constitutional: No: Fever, Chills HENT: No: Headaches, Lightheadedness Cardiovascular: No: Chest Pain or Discomfort Respiratory: No: Shortness of Breath Gastrointestinal: No: Nausea, Vomiting Genitourinary: No: Dysuria Musculoskeletal: Positive: Arthralgias, Edema, Pain Skin: Positive Lesions Neurologic: No: Weakness, Dizziness Physical Exam Narrative GENERAL: Awake and alert, in no acute distress. SKIN: 6in area of erythema and warmth medial and anterior to the patella. 4cm area of fluctuance. HEAD: Atraumatic. Normocephalic. EYES: Pupils equal and round. No scleral icterus. No injection or drainage. ENT: No nasal bleeding or discharge. Mucous membranes pink and moist. NECK: Trachea midline. No JVD. CARDIOVASCULAR: Regular rate and rhythm. No murmur appreciated. RESPIRATORY: No accessory muscle use. Clear to auscultation. Breath sounds equal bilaterally. MUSCULOSKELETAL: No obvious deformities. No clubbing. No cyanosis. No edema. Able to bend and straighten the knee. No tenderness to palpation of the patella. NEUROLOGICAL: Awake and alert. No obvious cranial nerve deficits. Motor grossly within normal limits. Normal speech. PSYCHIATRIC: Appropriate mood and affect; insight and judgment normal. Data Data Last Documented VS Orders Orders Iv Access Insert/Monitor (05/10/17 18:37) Complete Blood Count With Diff (05/10/17 18:37) Comprehensive Metabolic Panel (05/10/17 18:37) Blood Culture (05/10/17 18:37) Morphine Inj (Morphine Inj) (05/10/17 18:45) Vancomycin Inj (Vancomycin Inj) (05/10/17 18:45) Lidocaine 1% Inj (50 Ml) (Xylocaine 1% I (05/10/17 18:45) Sodium Chlor 0.9% 1000 Ml Inj (Ns 1000 M (05/10/17 19:00) Lidocaine 1% Inj (Xylocaine 1% Inj) (05/10/17 19:30) Hydromorphone Pf Inj (Dilaudid Pf Inj) (05/10/17 20:00) Wound Culture And Gram Stain (05/10/17 19:51) Admit Order (Ed Use Only) (05/10/17 19:57) Labs Laboratory Tests Test 05/10/17 18:55 White Blood Count 9.1 TH/MM3 Red Blood Count 4.71 MIL/MM3 Hemoglobin 13.1 GM/DL Hematocrit 39.7 % Mean Corpuscular Volume 84.3 FL Mean Corpuscular Hemoglobin 27.9 PG Mean Corpuscular Hemoglobin Concent 33.1 % Red Cell Distribution Width 11.8 % Platelet Count 325 TH/MM3 Mean Platelet Volume 8.8 FL Neutrophils (%) (Auto) 66.6 % Lymphocytes (%) (Auto) 23.9 % Monocytes (%) (Auto) 6.6 % Eosinophils (%) (Auto) 1.9 % Basophils (%) (Auto) 1.0 % Neutrophils # (Auto) 6.0 TH/MM3 Lymphocytes # (Auto) 2.2 TH/MM3 Monocytes # (Auto) 0.6 TH/MM3 Eosinophils # (Auto) 0.2 TH/MM3 Basophils # (Auto) 0.1 TH/MM3 CBC Comment AUTO DIFF Differential Comment AUTO DIFF CONFIRMED Blood Urea Nitrogen 7 MG/DL Creatinine 0.63 MG/DL Random Glucose 233 MG/DL Total Protein 7.3 GM/DL Albumin 2.7 GM/DL Calcium Level 9.0 MG/DL Alkaline Phosphatase 79 U/L Aspartate Amino Transf (AST/SGOT) 11 U/L Alanine Aminotransferase (ALT/SGPT) 17 U/L Total Bilirubin 0.6 MG/DL Sodium Level 133 MEQ/L Potassium Level 3.2 MEQ/L Chloride Level 97 MEQ/L Carbon Dioxide Level 25.4 MEQ/L Anion Gap 11 MEQ/L Estimat Glomerular Filtration Rate 137 ML/MIN [facility] Medical Decision Making Medical Screen Exam Complete: Yes Emergency Medical Condition: Yes Medical Record Reviewed: Yes Differential Diagnosis cellulitis vs abscess vs sepsis Narrative Course Patient is a 47 year old male who comes in complaining of pain and swelling to his right knee. Exam shows large area of erythema and warmth with an abscess. IV established, labs sent. Given IVF, morphine, Vancomycin. Signed out to Dr. Hearn for further management. Scripts Metformin (Metformin) 500 Mg Tab 500 MG PO BIDPC for Blood Sugar Management, #60 TAB 0 Refills With meals Prov: Jeanne Smith MD 05/13/17 Nystatin Topical (Nystatin Topical) 100,000 unit/gm Cream 1 APPLIC TOPICAL BID for Infection, #15 GM 0 Refills Prov: Jeanne Smith MD 05/13/17 Morphine IR (Morphine IR) 15 Mg Tab 15 MG PO Q8HR Y for PAIN, #10 TAB 0 Refills Prov: Jeanne Smith MD 05/13/17 Lactobacillus Acidophilus (Lactinex) 1 Chew 1 TAB CHEW BID for Nutritional Supplement, #60 TAB 0 Refills Prov: Jeanne Smith MD 05/13/17 Amoxicillin-Clavulanate (Augmentin) 875-125 Mg Tab 1 TAB PO BID for Infection, #24 TAB 0 Refills Prov: Jeanne Smith MD 05/13/17 Sennosides-Docusate Sodium (Gnp Senna Plus 8.6-50 mg) 8.6 Mg-50 Mg Tab 1 TAB PO BID for Constipation, #60 TAB Prov: Jeanne Smith MD 05/13/17 Petra Whaley MD May 10, 2017 18:48
[2017-05-10] MEDS ORDERED: SODIUM CHLOR 0.9% 1000 ML INJ 1,000 ML IV ONE (19:00)
[2017-05-10 19:10] LABS: BASOPHIL # 0.1 TH/MM3 (0-0.2); EOSINOPHIL # 0.2 TH/MM3 (0-0.4); EOSINOPHIL % 1.9 % (0.0-4.0); HEMATOCRIT 39.7 % (39.0-51.0); HEMOGLOBIN 13.1 GM/DL (13.0-17.0); LYMPH % 23.9 % (9.0-44.0); LYMPHOCYTE # 2.2 TH/MM3 (1.0-4.8); MEAN CELL VOLUME 84.3 FL (80.0-100.0); MEAN CORPUSCULAR HEMOGLOBIN 27.9 PG (27.0-34.0); MEAN CORPUSCULAR HGB CONC 33.1 % (32.0-36.0); MEAN PLATELET VOLUME 8.8 FL (7.0-11.0); MONO % 6.6 % (0.0-8.0); MONOCYTE # 0.6 TH/MM3 (0-0.9); NEUT % 66.6 % (16.0-70.0); PLATELET COUNT 325 TH/MM3 (150-450); RED BLOOD COUNT 4.71 MIL/MM3 (4.50-5.90); RED CELL DISTRIBUTION WIDTH 11.8 % (11.6-17.2); WHITE BLOOD COUNT 9.1 TH/MM3 (4.0-11.0)
[2017-05-10 19:19] LABS: CHLORIDE 97 MEQ/L (98-107); SODIUM (NA) 133 MEQ/L (136-145)
[2017-05-10 19:23] LABS: ALBUMIN 2.7 GM/DL (3.4-5.0); BICARBONATE 25.4 MEQ/L (21.0-32.0); BLOOD UREA NITROGEN 7 MG/DL (7-18); GLUCOSE,RANDOM 233 MG/DL (74-106)
[2017-05-10 19:26] LABS: ALT (GPT) 17 U/L (12-78); AST (GOT) 11 U/L (15-37); CREATININE 0.63 MG/DL (0.60-1.30); GLOMERULAR FILTRATION RATE 137 ML/MIN (>89)
[2017-05-10 19:28] LABS: TOTAL BILIRUBIN ADULT 0.6 MG/DL (0.2-1.0); TOTAL PROTEIN 7.3 GM/DL (6.4-8.2)
[2017-05-10 19:29] LABS: ALKALINE PHOSPHATASE 79 U/L (45-117)
[2017-05-10] MEDS ORDERED: LIDOCAINE HCL 1% 20 ML VIAL INFIL ONE (19:30)
--- NOTE | 2017-05-10 19:56 | PD ---
Data Data Last Documented VS Vital Signs Date Time Temp Pulse Resp B/P (MAP) Pulse Ox O2 Delivery O2 Flow Rate FiO2 05/10/17 16:50 98.9 98 16 127/78 (94) 99 Orders Orders Iv Access Insert/Monitor (05/10/17 18:37) Complete Blood Count With Diff (05/10/17 18:37) Comprehensive Metabolic Panel (05/10/17 18:37) Blood Culture (05/10/17 18:37) Morphine Inj (Morphine Inj) (05/10/17 18:45) Vancomycin Inj (Vancomycin Inj) (05/10/17 18:45) Lidocaine 1% Inj (50 Ml) (Xylocaine 1% I (05/10/17 18:45) Sodium Chlor 0.9% 1000 Ml Inj (Ns 1000 M (05/10/17 19:00) Lidocaine 1% Inj (Xylocaine 1% Inj) (05/10/17 19:30) Hydromorphone Pf Inj (Dilaudid Pf Inj) (05/10/17 20:00) Wound Culture And Gram Stain (05/10/17 19:51) Admit Order (Ed Use Only) (05/10/17 19:57) Labs Laboratory Tests Test 05/10/17 18:55 White Blood Count 9.1 TH/MM3 Red Blood Count 4.71 MIL/MM3 Hemoglobin 13.1 GM/DL Hematocrit 39.7 % Mean Corpuscular Volume 84.3 FL Mean Corpuscular Hemoglobin 27.9 PG Mean Corpuscular Hemoglobin Concent 33.1 % Red Cell Distribution Width 11.8 % Platelet Count 325 TH/MM3 Mean Platelet Volume 8.8 FL Neutrophils (%) (Auto) 66.6 % Lymphocytes (%) (Auto) 23.9 % Monocytes (%) (Auto) 6.6 % Eosinophils (%) (Auto) 1.9 % Basophils (%) (Auto) 1.0 % Neutrophils # (Auto) 6.0 TH/MM3 Lymphocytes # (Auto) 2.2 TH/MM3 Monocytes # (Auto) 0.6 TH/MM3 Eosinophils # (Auto) 0.2 TH/MM3 Basophils # (Auto) 0.1 TH/MM3 CBC Comment AUTO DIFF Blood Urea Nitrogen 7 MG/DL Creatinine 0.63 MG/DL Random Glucose 233 MG/DL Total Protein 7.3 GM/DL Albumin 2.7 GM/DL Calcium Level 9.0 MG/DL Alkaline Phosphatase 79 U/L Aspartate Amino Transf (AST/SGOT) 11 U/L Alanine Aminotransferase (ALT/SGPT) 17 U/L Total Bilirubin 0.6 MG/DL Sodium Level 133 MEQ/L Potassium Level 3.2 MEQ/L Chloride Level 97 MEQ/L Carbon Dioxide Level 25.4 MEQ/L Anion Gap 11 MEQ/L Estimat Glomerular Filtration Rate 137 ML/MIN MDM Supervised Visit with CESAR: No Narrative Course I took over care of this patient from Dr. Whaley. Patient has an abscess and cellulitis involving the right lower extremity. On exam he has an area of fluctuance medial to the patella with a large surrounding area of cellulitis. I don't think the joint is affected at this time based on his exam. I performed a superficial incision and drainage and about a cup full of purulent drainage was expressed. Given the proximity to the knee I deferred packing and limited use of hemostats. I think patient requires observation to ensure he is improving. If he is not significantly better he may require further incision and drainage in the OR of this abscess given its proximity to the knee joint and prepatellar bursa. Procedures Procedure Narrative ID: 5 cc of 1% lidocaine were injected into the left lower extremity medial to the knee. A superficial incision was made with an 11 blade scalpel and copious purulent drainage was expressed, about a cupful. A sterile dressing was applied. Patient tolerated the procedure well. Physician Communication Physician Communication Discussed with Dr. Oliva Diagnosis Primary Impression: Abscess Admitting Information Admitting Physician Requests: Observation Angela Hearn MD May 10, 2017 19:56
[2017-05-10 20:00] VITALS: TEMP 98.6
[2017-05-10] MEDS ORDERED: HYDROmorphone HCL PF 2 MG/ML VIAL IV PUSH ONE (20:00)
[2017-05-10] MEDS ORDERED: GLUCAGON 1 MG/ML VIAL OTHER PRN (20:00)
[2017-05-10] MEDS ORDERED: NALOXONE HCL 0.4 MG/ML AMP IV PUSH PRN (20:00)
[2017-05-10] MEDS ORDERED: DEXTROSE 50% IN WATER 50 ML VIAL(D50) IV PUSH PRN (20:00)
[2017-05-10] MEDS ORDERED: LACTULOSE SYRUP 20 GM/30 ML CUP PO PRN (20:00)
[2017-05-10] MEDS ORDERED: SODIUM CHLORIDE 0.9% FLUSH 10 ML FLUSH IV FLUSH PRN (20:00)
[2017-05-10] MEDS ORDERED: SENNOSIDES 8.6 MG TAB PO PRN (20:00)
[2017-05-10] MEDS ORDERED: TETANUS/DIPHTHERIA TOXOID ADULT 0.5 ML VIAL IM ONE (20:00)
[2017-05-10] MEDS ORDERED: ACETAMINOPHEN 325 MG TAB PO PRN (20:00)
[2017-05-10] MEDS ORDERED: BISACODYL 10 MG SUPP RECTAL PRN (20:00)
[2017-05-10] MEDS ORDERED: Vancomycin Consult Pharmacy 1 EA OTHER SCH (20:00)
[2017-05-10] MEDS ORDERED: MAGNESIUM HYDROXIDE SUSP 30 ML CUP PO PRN (20:00)
[2017-05-10] MEDS ORDERED: ONDANSETRON HCL 4 MG/2 ML VIAL IVP PRN (20:00)
[2017-05-10 20:08] VITALS: BP 114/69; PULSE 93; RESP 18; TEMP 99.8; O2SAT 95
[2017-05-10] MEDS ORDERED: PIPERACIL-TAZO 3.375 GM PREMIX 50 ML IV SCH (21:00)
[2017-05-10 21:25] VITALS: BP 118/70; PULSE 95; RESP 18; TEMP 98; O2SAT 95
[2017-05-10] MEDS: SODIUM CHLORIDE 0.9% FLUSH 10 ML FLUSH IV FLUSH SCH (21:40)
[2017-05-10] MEDS: DOCUSATE SODIUM 50 MG/SENNA 8.6 MG TAB PO SCH (21:40)
[2017-05-10] MEDS: INSULIN ASPART SUPPLEMENTAL SCALE SQ SCH (21:56)
[2017-05-10] MEDS: oxyCODONE/ACETAMINOPHEN 7.5 MG/325 MG TAB PO PRN (22:42)
[2017-05-11] VITALS: BP 121/71; PULSE 90; RESP 17; TEMP 98.1; O2SAT 94
[2017-05-11] MEDS ORDERED: diphenhydrAMINE HCL 50 MG/ML VIAL IV PUSH ONE (00:45)
[2017-05-11] MEDS: oxyCODONE/ACETAMINOPHEN 7.5 MG/325 MG TAB PO PRN ×4 (04:35→23:52)
[2017-05-11] MEDS: VANCOMYCIN INJ 2,500 MG in SODIUM CHLORID 0.9% 500 ML INJ 500 ML IV SCH ×2 (05:28→17:33)
[2017-05-11 05:35] LABS: AUTOMATED NEUTROPHIL # 4.5 TH/MM3 (1.8-7.7); BASOPHIL % 0.6 % (0.0-2.0); EOSINOPHIL # 0.3 TH/MM3 (0-0.4); EOSINOPHIL % 3.7 % (0.0-4.0); HEMATOCRIT 40.6 % (39.0-51.0); HEMOGLOBIN 13.5 GM/DL (13.0-17.0); LYMPH % 29.5 % (9.0-44.0); LYMPHOCYTE # 2.2 TH/MM3 (1.0-4.8); MEAN CELL VOLUME 84.9 FL (80.0-100.0); MEAN CORPUSCULAR HEMOGLOBIN 28.2 PG (27.0-34.0); MEAN CORPUSCULAR HGB CONC 33.2 % (32.0-36.0); MEAN PLATELET VOLUME 8.4 FL (7.0-11.0); MONO % 8.2 % (0.0-8.0); MONOCYTE # 0.6 TH/MM3 (0-0.9); PLATELET COUNT 309 TH/MM3 (150-450); RED BLOOD COUNT 4.78 MIL/MM3 (4.50-5.90); WHITE BLOOD COUNT 7.6 TH/MM3 (4.0-11.0)
[2017-05-11 05:56] LABS: CALCIUM 8.7 MG/DL (8.5-10.1)
[2017-05-11 05:57] LABS: BICARBONATE 30.8 MEQ/L (21.0-32.0)
[2017-05-11 06:00] LABS: CREATININE 0.62 MG/DL (0.60-1.30)
[2017-05-11] MEDS: diphenhydrAMINE HCL 25 MG CAP PO PRN ×4 (06:04→23:52)
[2017-05-11] MEDS ORDERED: VANCOMYCIN INJ 1,000 MG in SODIUM CHLOR 0.9% 250 ML INJ 250 ML IV SCH (07:00)
[2017-05-11 07:50] VITALS: BP 132/74; PULSE 72; RESP 20; TEMP 96.2; O2SAT 94
[2017-05-11] MEDS: DOCUSATE SODIUM 50 MG/SENNA 8.6 MG TAB PO SCH ×2 (08:23→20:21)
[2017-05-11] MEDS: INSULIN ASPART SUPPLEMENTAL SCALE SQ SCH ×4 (08:27→20:20)
[2017-05-11] MEDS: SODIUM CHLORIDE 0.9% FLUSH 10 ML FLUSH IV FLUSH SCH ×2 (08:28→20:21)
[2017-05-11] MEDS ORDERED: INFLUENZA VIRUS VACCINE (QUADRIVALENT) 0.5 ML SYR IM ONE (10:00)
--- NOTE | 2017-05-11 11:27 | HHI.HP ---
[facility] No Primary Care Physician Admission Diagnosis Lower extremity abscess Diagnoses: Chief Complaint: Worsening right knee swelling and pain Travel History International Travel<30 Days: No Contact w/Intl Traveler <30 Da: No Traveled to Known Affected Are: No History of Present Illness Written by Petra Paul, acting as scribe for Dr. Smith on 05/11/17 at 11:22. Mr. Tang is a 47-year-old male patient with a known medical history of asthma , DM and hepatitis C who presented to the ED with right knee swelling x 5 days. States he got bit by something last Monday while taking out the trash, unsure of what bit him. Complaints of pain with ambulation. Thought he was improving over the last few days but states he woke up yesterday morning with increased swelling and erythema as well as presence of pus. Denies taking any medications or recent antibiotic use. Denies any fever or chills. Does admit to diabetic history but has ran out of his Metformin for many days now and has not taken it. Quite noncompliant. Denies any recent antibiotic use or denies taking any OTC medication for pain relief. Review of Systems Constitutional: DENIES: Fever, Chills Eyes: DENIES: Blurred vision Respiratory: DENIES: Cough, Sputum production, Shortness of breath Cardiovascular: DENIES: Chest pain Gastrointestinal: DENIES: Abdominal pain, Diarrhea, Nausea, Vomiting Musculoskeletal: DENIES: Muscle aches Psychiatric: DENIES: Anxiety Except as stated in HPI: all other systems reviewed are Neg Past Family Social History Past Medical History Type 2 DM Asthma Hepatitis C Past Surgical History Hernia repair surgery Scrotum surgery x 2. Reported Medications Active Metformin (Metformin HCl) 500 Mg Tab 500 Mg PO BIDPC With meals Allergies: Coded Allergies: penicillin G (Unverified Allergy, Unknown, Unknown , 05/10/17) Patient can't remember. Active Ordered Medications Current Medications Medications (Trade) Dose Ordered Sig/Lev Route Start Time Stop Time Status Last Admin (NS Flush) 2 ml UNSCH PRN IV FLUSH 05/10/17 20:00 (NS Flush) 2 ml BID IV FLUSH 05/10/17 21:00 (Tylenol) 650 mg Q4H PRN PO 05/10/17 20:00 (Zofran Inj) 4 mg Q6H PRN IVP 05/10/17 20:00 (Narcan Inj) 0.4 mg UNSCH PRN IV PUSH 05/10/17 20:00 (Lila-Colace) 1 tab BID PO 05/10/17 21:00 (Milk Of Magnesia Liq) 30 ml Q12H PRN PO 05/10/17 20:00 (Senokot) 17.2 mg Q12H PRN PO 05/10/17 20:00 (Dulcolax Supp) 10 mg DAILY PRN RECTAL 05/10/17 20:00 (Lactulose Liq) 30 ml DAILY PRN PO 05/10/17 20:00 Pharmacy Profile Note 0 ml @ 0 mls/hr UNSCH OTHER 05/10/17 20:00 Piperacillin Sod/ Tazobactam Sod 50 ml @ 100 mls/hr Q6H IV 05/10/17 21:00 Future Hold 05/10/17 21:55 (D50w (Vial) Inj) 50 ml UNSCH PRN IV PUSH 05/10/17 20:00 (Glucagon Inj) 1 mg UNSCH PRN OTHER 05/10/17 20:00 (NovoLOG SUPPLEMENTAL SCALE) 1 ACHS SLIDING SCALE SQ 05/10/17 21:00 05/11/17 08:27 Vancomycin HCl 2500 mg/Sodium Chloride 525 ml @ 250 mls/hr Q12H IV 05/11/17 06:00 05/11/17 05:28 Miscellaneous Information SPECIFIC LAB TO BE MAKEDA... ONCE ONCE .XX 05/12/17 17:45 05/12/17 17:46 (Percocet 7.5-325 Mg) 1 tab Q4H PRN PO 05/10/17 22:15 05/11/17 11:09 (Benadryl) 25 mg Q4H PRN PO 05/11/17 05:45 05/11/17 11:09 Family History Family medical history significant for cardiovascular disease and DM. Sister has MS. Social History Admits to smoking 1 ppd cigarettes. Physical Exam Vital Signs Vital Signs Date Time Temp Pulse Resp B/P (MAP) Pulse Ox O2 Delivery O2 Flow Rate FiO2 05/11/17 07:50 96.2 72 20 132/74 (93) 94 05/11/17 00:00 98.1 90 17 121/71 (88) 94 05/10/17 21:25 98.0 95 18 118/70 (86) 95 05/10/17 20:40 05/10/17 20:08 99.8 93 18 114/69 (84) 95 Room Air 05/10/17 20:00 98.6 05/10/17 16:50 98.9 98 16 127/78 (94) 99 Physical Exam GENERAL: This is a well-developed, obese male patient, in no apparent distress. SKIN: No rashes, ecchymoses or lesions. Warm and dry. Right knee wound, 1cm in length with surrounding swelling and erythema. HEAD: Atraumatic. Normocephalic. EYES: Pupils equal round and reactive. Extraocular motions intact. No scleral icterus. No injection or drainage. ENT: Nose without bleeding, purulent drainage or septal hematoma. Throat without erythema, tonsillar hypertrophy or exudate. Uvula midline. Airway patent. NECK: Trachea midline. No JVD. Supple. CARDIOVASCULAR: Regular rate and rhythm without murmurs, gallops, or rubs. RESPIRATORY: Clear to auscultation. Breath sounds equal bilaterally. No wheezes , rales, or rhonchi. GASTROINTESTINAL: Abdomen soft, non-tender, nondistended. No guarding. MUSCULOSKELETAL: Extremities without clubbing, cyanosis. No joint tenderness, effusion, or edema noted. Positive Homans sign on right lower extremity. LYMPH: Denies any palpable inguinal lymph nodes NEUROLOGICAL: Awake and alert. Cranial nerves II through XII intact. Motor and sensory grossly within normal limits. Five out of 5 muscle strength in all muscle groups. Normal speech. Laboratory Laboratory Tests Test 05/10/17 18:55 05/11/17 04:40 White Blood Count 9.1 7.6 Red Blood Count 4.71 4.78 Hemoglobin 13.1 13.5 Hematocrit 39.7 40.6 Mean Corpuscular Volume 84.3 84.9 Mean Corpuscular Hemoglobin 27.9 28.2 Mean Corpuscular Hemoglobin Concent 33.1 33.2 Red Cell Distribution Width 11.8 12.0 Platelet Count 325 309 Mean Platelet Volume 8.8 8.4 Neutrophils (%) (Auto) 66.6 58.0 Lymphocytes (%) (Auto) 23.9 29.5 Monocytes (%) (Auto) 6.6 8.2 Eosinophils (%) (Auto) 1.9 3.7 Basophils (%) (Auto) 1.0 0.6 Neutrophils # (Auto) 6.0 4.5 Lymphocytes # (Auto) 2.2 2.2 Monocytes # (Auto) 0.6 0.6 Eosinophils # (Auto) 0.2 0.3 Basophils # (Auto) 0.1 0.0 CBC Comment AUTO DIFF DIFF FINAL Differential Comment AUTO DIFF CONFIRMED Blood Urea Nitrogen 7 7 Creatinine 0.63 0.62 Random Glucose 233 176 Total Protein 7.3 Albumin 2.7 Calcium Level 9.0 8.7 Alkaline Phosphatase 79 Aspartate Amino Transf (AST/SGOT) 11 Alanine Aminotransferase (ALT/SGPT) 17 Total Bilirubin 0.6 Sodium Level 133 135 Potassium Level 3.2 3.3 Chloride Level 97 99 Carbon Dioxide Level 25.4 30.8 Anion Gap 11 5 Estimat Glomerular Filtration Rate 137 140 Date/Time Source Procedure Growth Status 05/10/17 19:00 Blood Peripheral Aerobic Blood Culture - Preliminary NO GROWTH IN 1 DAY Resulted 05/10/17 19:00 Blood Peripheral Anaerobic Blood Culture - Preliminary NO GROWTH IN 1 DAY Resulted 05/10/17 19:55 Wound Leg Gram Stain - Final Resulted 05/10/17 19:55 Wound Leg Wound Culture Pending Resulted Result Diagram: 05/11/17 0440 05/11/17 0440 Imaging Last Impressions Lower Extremity Ultrasound 05/11/17 0000 Signed Impressions: Service Date/Time: April 12:22 - CONCLUSION: No evidence of DVT. Bernard Vidal MD Septic Shock Reassessment Septic shock perfusion: reassessment completed Caprini VTE Risk Assessment Caprini VTE Risk Assessment: No/Low Risk (score <= 1) Caprini Risk Assessment Model Point Value = 1 Point Value = 2 Point Value = 3 Point Value = 5 Age 41-60 Minor surgery BMI > 25 kg/m2 Swollen legs Varicose veins or History of unexplained or recurrent spontaneous Oral contraceptives or hormone replacement Sepsis (< 1 month) Serious lung disease, including pneumonia (< 1 month) Abnormal pulmonary function Acute myocardial infarction Congestive heart failure (< 1 month) History of inflammatory bowel disease Medical patient at bed rest Age 61-74 Arthroscopic surgery Major open surgery (> 45 min) Laparoscopic surgery (> 45 min) Malignancy Confined to bed (> 72 hours) Immobilizing plaster cast Central venous access Age >= 75 History of VTE Family history of VTE Factor V Leiden Prothrombin [id number] Lupus anticoagulant Anticardiolipin antibodies Elevated serum homocysteine Heparin-induced thrombocytopenia Other congenital or acquired thrombophilia Stroke (< 1 month) Elective arthroplasty Hip, pelvis, or leg fracture Acute spinal cord injury (< 1 month) Prophylaxis Regimen Total Risk Factor Score Risk Level Prophylaxis Regimen 0-1 Low Early ambulation 2 Moderate Order ONE of the following: *Sequential Compression Device (SCD) *Heparin 5000 units SQ BID 3-4 Higher Order ONE of the following medications: *Heparin 5000 units SQ TID *Enoxaparin/Lovenox 40 mg SQ daily (WT < 150 kg, CrCl > 30 mL/min) *Enoxaparin/Lovenox 30 mg SQ daily (WT < 150 kg, CrCl > 10-29 mL/min) *Enoxaparin/Lovenox 30 mg SQ BID (WT < 150 kg, CrCl > 30 mL/min) AND/OR *Sequential Compression Device (SCD) 5 or more Highest Order ONE of the following medications: *Heparin 5000 units SQ TID (Preferred with Epidurals) *Enoxaparin/Lovenox 40 mg SQ daily (WT < 150 kg, CrCl > 30 mL/min) *Enoxaparin/Lovenox 30 mg SQ daily (WT < 150 kg, CrCl > 10-29 mL/min) *Enoxaparin/Lovenox 30 mg SQ BID (WT < 150 kg, CrCl > 30 mL/min) AND *Sequential Compression Device (SCD) Assessment and Plan Assessment and Plan Mr. Tang is a 47-year-old male patient with a known medical history of asthma , DM and hepatitis C who presented to the ED with right knee swelling. Right lower extremity cellulitis Blood cultures obtained with no growth to date. Continue to follow. Wound culture obtained and growing group B beta strep. CBC and BMP which are essentially unremarkable. Afebrile. Monitor for infection. Will continue IV antibiotics, Vancomycin Control pain, Percocet available PRN per pain scale. Positive Homans sign in right lower calf and ankle, will order US, rule out DVT. No evidence of DVT. Wound care consult placed for further recommendations, appreciate input. PT evaluated and treat, appreciate recommendations. Supportive care. Type 2 Diabetes Mellitus, chronic: ACCU check ACHS, sliding scale insulin, cover as needed. Hypokalemia: K 3.3 on presentation. Repletion ordered. Follow BMP in am. Tobacco abuse: Counselled on cessation. DVT Prophylaxis: SCDs. This note was transcribed by GUERA Espinal. I, Dr. Jeanne Smith personally performed the history, physical exam, and medical decision making; and confirmed the accuracy of the information in the transcribed note. Authenticated by Dr. Jeanne Smith on 05/11/17 at 11:22. Petra Paul May 11, 2017 11:27 Jeanne Smith MD May 11, 2017 14:23
[2017-05-11 11:30] VITALS: BP 134/84; PULSE 86; RESP 20; TEMP 96; O2SAT 96
--- NOTE | 2017-05-11 12:47 | RADRPT ---
EXAM DATE/TIME: 05/11/2017 12:22 [place] COMPARISON: No previous studies available for comparison. INDICATIONS : Right leg insect bite. Right leg pain. MEDICAL HISTORY : Diabetes mellitus type 2. Hepatitis C. Right leg insect bite. Right leg pain. Hiatal hernia. SURGICAL HISTORY : Scrotal surgery. ENCOUNTER: Initial ACUITY: 1 week PAIN SCORE: 10/10 LOCATION: Right leg. TECHNIQUE: Venous ultrasound of the leg was performed from the inguinal ligament to the proximal calf. Real-karsten e, color Doppler and spectral tracing, compression and augmentation techniques were used. FINDINGS: There is normal compressibility of the deep venous system from the inguinal region to the proximal ca lf. No echogenic clot is seen in the lumen of the common femoral, femoral, popliteal, and posterior tibial veins. There is a normal response of the venous system to proximal and distal augmentation an d respiration. There is edema in the soft tissues of the calf. CONCLUSION: No evidence of DVT. Bernard Vidal MD on May 11, 2017 at 12:44 Board Certified Radiologist. This report was verified electronically.
[2017-05-11 15:50] VITALS: BP 137/79; PULSE 91; RESP 20; TEMP 96.8; O2SAT 97
[2017-05-11 20:00] VITALS: BP 131/79; PULSE 88; RESP 20; TEMP 98.2; O2SAT 98
[2017-05-12] VITALS: BP 129/82; PULSE 93; RESP 18; TEMP 97.4; O2SAT 98
[2017-05-12 04:20] VITALS: O2SAT 98
[2017-05-12] MEDS: diphenhydrAMINE HCL 25 MG CAP PO PRN ×3 (04:52→20:32)
[2017-05-12] MEDS: VANCOMYCIN INJ 2,500 MG in SODIUM CHLORID 0.9% 500 ML INJ 500 ML IV SCH ×2 (04:53→18:30)
[2017-05-12] MEDS: oxyCODONE/ACETAMINOPHEN 7.5 MG/325 MG TAB PO PRN ×3 (04:53→20:33)
[2017-05-12 06:58] LABS: BICARBONATE 28.9 MEQ/L (21.0-32.0)
[2017-05-12 07:01] LABS: CREATININE 0.75 MG/DL (0.60-1.30)
[2017-05-12 08:00] VITALS: BP 136/87; PULSE 80; RESP 20; TEMP 97.4; O2SAT 95
--- NOTE | 2017-05-12 08:09 | HHI.PR ---
Subjective Remarks Dressing changed by wound nurse, has pain at the wound site. With edema,. Butler nauseated. He is tachycardic says morphine helped for pain. No fever or chills . Objective Vitals Vital Signs Date Time Temp Pulse Resp B/P (MAP) Pulse Ox O2 Delivery O2 Flow Rate FiO2 05/12/17 04:20 98 05/12/17 00:00 97.4 93 18 129/82 (98) 98 05/11/17 20:00 98.2 88 20 131/79 (96) 98 05/11/17 17:08 18 05/11/17 15:50 96.8 91 20 137/79 (98) 97 05/11/17 11:30 96.0 86 20 134/84 (101) 96 I/O 05/11/17 05/11/17 05/11/17 05/12/17 05/12/17 05/12/17 07:00 15:00 23:00 07:00 15:00 23:00 Intake Total 525 ml 1005 ml 500 ml Balance 525 ml 1005 ml 500 ml Intake Oral 480 ml 500 ml IV Total 525 ml 525 ml # Voids 1 5 2 # Bowel Movements 1 0 Result Diagram: 05/11/17 0440 05/12/17 0558 Imaging Last Impressions Lower Extremity Ultrasound 05/11/17 0000 Signed Impressions: Service Date/Time: April 12:22 - CONCLUSION: No evidence of DVT. Bernard Vidal MD Objective Remarks GENERAL: This is a well-developed, obese male patient, in no apparent distress. CARDIOVASCULAR: Regular rate and rhythm without murmurs, gallops, or rubs. RESPIRATORY: Clear to auscultation. Breath sounds equal bilaterally. No wheezes , rales, or rhonchi. GASTROINTESTINAL: Abdomen soft, non-tender, nondistended. No guarding. MUSCULOSKELETAL: Right leg wound measuring 3.5cm 5.7cm with a surgical laceration measuring ~1cm.Large amount of serous drainage noted Erythema extends ~3cm circumferential. Extremities without clubbing, cyanosis. No joint tenderness, effusion, or edema noted. Positive Homans sign on right lower extremity. LYMPH: No LAD inguinal lymph nodes. NEUROLOGICAL: Awake and alert. Cranial nerves II through XII intact. Motor and sensory grossly within normal limits. Five out of 5 muscle strength in all muscle groups. Normal speech. A/P Assessment and Plan Mr. Tang is a 47-year-old male patient with a known medical history of asthma , DM and hepatitis C who presented to the ED with right knee swelling. Right lower extremity cellulitis Blood cultures obtained with no growth to date. Continue to follow. Wound culture obtained and growing group B beta strep. CBC and BMP which are essentially unremarkable. Afebrile. Monitor for infection. Will continue IV antibiotics, Vancomycin, will consider changing abx Control pain, Percocet available PRN per pain scale. Positive Homans sign/ edema in right lower calf and ankle, US t or/o DVT. No evidence of DVT. Wound care consult placed for further recommendations, appreciate input. Discussed with wound care nurse: Cleanse Right knee with normal saline pat dry. Lightly pack Maxsorb ll AG cut into thin strips into open incision. Cover with dry gauze and secure with boarder dressing. Change dressing daily or as needed for visual drainage or dislodgement. PT evaluated and treat, appreciate recommendations. Supportive care. Type 2 Diabetes Mellitus, chronic: ACCU check ACHS, sliding scale insulin, cover as needed. Hypokalemia: K 3.3 on presentation. Repletion ordered. Follow BMP in am. Tobacco abuse: Counselled on cessation. DVT Prophylaxis: SCDs. Discussed with the patient, nurse, wound care nurse. Jeanne Smith MD May 12, 2017 08:09
[2017-05-12] MEDS: SODIUM CHLORIDE 0.9% FLUSH 10 ML FLUSH IV FLUSH SCH ×2 (09:00→20:33)
[2017-05-12] MEDS: DOCUSATE SODIUM 50 MG/SENNA 8.6 MG TAB PO SCH ×3 (09:00→20:33)
[2017-05-12] MEDS: INSULIN ASPART SUPPLEMENTAL SCALE SQ SCH ×4 (09:17→20:34)
[2017-05-12] MEDS ORDERED: MORPHINE SULFATE 2 MG/ML INJ IV PUSH ONE (09:45)
[2017-05-12] MEDS ORDERED: LIDOCAINE 4% CREAM 5 GM TUBE TOPICAL PRN (09:45)
--- NOTE | 2017-05-12 11:42 | PD.WCN.NOT ---
Wound Consult Description: Wound consult ordered by Norma LYNNE for right lower extremity Communicated with: Rachna Meyer RN [facility] 3rd floor Recommendation: 1) Cleanse Right knee with normal saline pat dry 2) Lightly pack Maxsorb ll AG cut into thin strips into open incision. 3) Cover with dry gauze and secure with boarder dressing. 4) Change dressing daily or as needed for visual drainage or dislodgement. Additional Information: Patient was seen today by report writer in room at [facility] 3rd floor .Rachna BARONE present with report writer as well as spouse.Gauze dressing removed from right knee to expose wound measuring 3.5cm 5.7cm with a surgical laceration measuring ~1cm.Large amount of serous drainage noted Erythema extends ~3cm circumferential.Wound cleansed with normal saline pat dry skin prep applied to naye wound.Maxsorb ll AG cut into thin strips and 1 piece was lightly packed into incision covered with dry gauze secured with boarder gauze.Pat verbalized discomfort with dressing change needed frequent verbal comforting.Spouse verbalized understanding of dressing change. Ulices Miranda [facility] May 12, 2017 11:42
[2017-05-12 12:00] VITALS: BP 127/86; PULSE 74; RESP 20; TEMP 97.6; O2SAT 95
[2017-05-12 16:00] VITALS: BP 134/79; PULSE 78; RESP 20; TEMP 97.2; O2SAT 95
[2017-05-12] MEDS ORDERED: PHARMACY ORDERED LAB ONE (17:45)
[2017-05-12 20:00] VITALS: BP 126/76; PULSE 87; RESP 20; TEMP 96.7; O2SAT 99
[2017-05-12] MEDS: MORPHINE SULFATE 4 MG/ML INJ IV PUSH PRN (23:38)
[2017-05-13] VITALS: BP 134/88; PULSE 90; RESP 20; TEMP 96.7; O2SAT 95
[2017-05-13] MEDS: oxyCODONE/ACETAMINOPHEN 7.5 MG/325 MG TAB PO PRN (05:09)
[2017-05-13] MEDS: diphenhydrAMINE HCL 25 MG CAP PO PRN (05:09)
[2017-05-13] MEDS: VANCOMYCIN INJ 2,500 MG in SODIUM CHLORID 0.9% 500 ML INJ 500 ML IV SCH (05:09)
[2017-05-13 07:30] VITALS: BP 129/75; PULSE 84; RESP 20; TEMP 97.4; O2SAT 94
[2017-05-13 07:39] LABS: CREATININE 0.59 MG/DL (0.60-1.30)
--- NOTE | 2017-05-13 08:33 | HHI.PR ---
Subjective Remarks Feels much better still with some pain swelling and erythema improved, lot of pus was coming out from the wound overnight less drainage now. No fever or chills. No n/v/d/c. Denies chest pain or sob. Objective Vitals Vital Signs Date Time Temp Pulse Resp B/P (MAP) Pulse Ox O2 Delivery O2 Flow Rate FiO2 05/13/17 00:00 96.7 90 20 134/88 (103) 95 05/12/17 20:00 96.7 87 20 126/76 (93) 99 05/12/17 16:00 97.2 78 20 134/79 (97) 95 05/12/17 12:00 97.6 74 20 127/86 (100) 95 I/O 05/12/17 05/12/17 05/12/17 05/13/17 05/13/17 05/13/17 07:00 15:00 23:00 07:00 15:00 23:00 Intake Total 500 ml 1400 ml 552 ml 960 ml Balance 500 ml 1400 ml 552 ml 960 ml Intake Oral 500 ml 850 ml 960 ml IV Total 550 ml 552 ml # Voids 2 6 4 # Bowel Movements 0 1 1 Result Diagram: 05/11/17 0440 05/13/17 0631 Imaging Last Impressions Lower Extremity Ultrasound 05/11/17 0000 Signed Impressions: Service Date/Time: April 12:22 - CONCLUSION: No evidence of DVT. Bernard Vidal MD Objective Remarks GENERAL: This is a well-developed, obese male patient, in no apparent distress. CARDIOVASCULAR: Regular rate and rhythm without murmurs, gallops, or rubs. RESPIRATORY: Clear to auscultation. Breath sounds equal bilaterally. No wheezes , rales, or rhonchi. GASTROINTESTINAL: Abdomen soft, non-tender, nondistended. No guarding. MUSCULOSKELETAL: Right leg wound measuring 3.5cm 5.7cm with a surgical laceration measuring ~1cm.Large amount of serous drainage noted Erythema extends ~3cm circumferential. Extremities without clubbing, cyanosis. No joint tenderness, effusion, or edema noted. Positive Homans sign on right lower extremity. LYMPH: No LAD inguinal lymph nodes. NEUROLOGICAL: Awake and alert. Cranial nerves II through XII intact. Motor and sensory grossly within normal limits. Five out of 5 muscle strength in all muscle groups. Normal speech. A/P Assessment and Plan Mr. Tang is a 47-year-old male patient with a known medical history of asthma , DM and hepatitis C who presented to the ED with right knee swelling. Right lower extremity cellulitis Blood cultures obtained with no growth to date. Continue to follow. Wound culture obtained and growing group B beta strep. Sensitivities reviewed. Patien tis not allergic to penicillin and is allergic to percocet. CBC and BMP which are essentially unremarkable. Afebrile. Monitor for infection. Will continue IV antibiotics, Vancomycin, changing abx to augmentin po and to have a t DC Control pain, Percocet available PRN per pain scale. Positive Homans sign/ edema in right lower calf and ankle, US t or/o DVT. No evidence of DVT. Wound care consult placed for further recommendations, appreciate input. Discussed with wound care nurse: Cleanse Right knee with normal saline pat dry. Lightly pack Maxsorb ll AG cut into thin strips into open incision. Cover with dry gauze and secure with boarder dressing. Change dressing daily or as needed for visual drainage or dislodgement. PT evaluated and treat, appreciate recommendations. Supportive care. Type 2 Diabetes Mellitus, chronic: ACCU check ACHS, sliding scale insulin, cover as needed. Refill metformin at DC Hypokalemia: K 3.3 on presentation. Repletion ordered. Follow BMP in am. Tobacco abuse: Counselled on cessation. DVT Prophylaxis: SCDs. Discussed with the patient, nurse, family Improved Discharge Planning DC home in stable condition to follow up as OP with PCP and consultants. Diet: Healthy heart diet and Diabetic diet Activity ad yuan as tolerated Meds per med reconciliations Jeanne Smith MD May 13, 2017 08:33
[2017-05-13] MEDS: INSULIN ASPART SUPPLEMENTAL SCALE SQ SCH ×2 (08:38→12:36)
[2017-05-13] MEDS: DOCUSATE SODIUM 50 MG/SENNA 8.6 MG TAB PO SCH (08:39)
[2017-05-13] MEDS: SODIUM CHLORIDE 0.9% FLUSH 10 ML FLUSH IV FLUSH SCH (08:40)
[2017-05-13] MEDS ORDERED: LACTCHW3 CHEW (10:44)
[2017-05-13] MEDS ORDERED: AUGM875T3 PO (10:44)
[2017-05-13] MEDS ORDERED: PERI PO (10:44)
[2017-05-13] MEDS ORDERED: TRAM50 PO (10:45)
--- NOTE | 2017-05-13 10:46 | HHI.DCPOC ---
Discharge Care Plan Goals to Promote Your Health * To prevent worsening of your condition and complications * To maintain your health at the optimal level Directions to Meet Your Goals Take your medications as prescribed Follow your dietary instruction Follow activity as directed Keep your appointments as scheduled Take your immunizations and boosters as scheduled If your symptoms worsen call your PCP, if no PCP go to Urgent Care Center or Emergency Room Smoking is Dangerous to Your Health. Avoid second hand smoke Call the 24-hour hour crisis hotline for domestic abuse at Jeanne Smith MD May 13, 2017 10:46
[2017-05-13 11:50] VITALS: BP 124/81; PULSE 94; RESP 20; TEMP 96.7; O2SAT 96
[2017-05-13] MEDS ORDERED: AMOXICILLIN/CLAVULANATE K 875 MG TAB PO ONE (12:45)
[2017-05-13] MEDS: MORPHINE SULFATE 4 MG/ML INJ IV PUSH PRN (12:52)
[2017-05-13] MEDS ORDERED: MSIR15 PO (13:16)
[2017-05-13] MEDS ORDERED: NYST15T TOPICAL (13:24)
[2017-05-13] MEDS ORDERED: METF500T PO (15:14)
[2017-05-13] MEDS ORDERED: VANCOMYCIN INJ 2,000 MG in SODIUM CHLORID 0.9% 500 ML INJ 500 ML IV SCH (21:00)
[2017-05-13] MEDS ORDERED: AMOXICILLIN/CLAVULANATE K 875 MG TAB PO SCH (21:00)
[2017-05-15] MEDS ORDERED: PHARMACY ORDERED LAB ONE (08:45)
== END 2017-05-13 15:31 | disposition home or self-care (01) ==
LOC: PHED 16:40 → PHEDA 19:57 → PH3A 20:48
PROVIDERS: ADMIT Hospitalist; ATTEND Hospitalist
DX: L02.415 Cutaneous abscess of right lower limb (principal); E11.9 Type 2 diabetes mellitus without complications; B37.2 Candidiasis of skin and nail; J45.909 Unspecified asthma, uncomplicated; B19.20 Unspecified viral hepatitis C without hepatic coma; F17.210 Nicotine dependence, cigarettes, uncomplicated; Z91.19 Patient's noncompliance with other medical treatment and regimen; Z79.84 Long term (current) use of oral hypoglycemic drugs; L03.115 Cellulitis of right lower limb; B96.89 Other specified bacterial agents as the cause of diseases classified elsewhere; E87.6 Hypokalemia; R00.0 Tachycardia, unspecified; Z23 Encounter for immunization
CPT/HCPCS: 10060; 80048; 80053; 80202; 82565; 82948; 85025; 86403; 87040; 87070; 87205; 90471; 90686; 90714; 93971; 96365; 96366; 96372; 96375; 96376; 97110; 97116; 97162; 99285; G0378; G8987; G8988; J1170; J1200; J1815; J2270; J2405; J2543; J3370; J7030; J7040; G0008; Q2038

== ENCOUNTER 2017-10-02 13:12 | Emergency (ER) | payer SELFPAY ==
[~2017-10-02] VITALS: Ht 182.9 cm; Wt 115.5 kg
[~2017-10-02 13:12] MED LIST changes: +AUGM875T3 PO; -BACL10TA PO; -DICL75TA PO; +LACTCHW3 CHEW; +MSIR15 PO; +NYST15T TOPICAL; +PERI PO
[2017-10-02 13:20] VITALS: BP 129/83; PULSE 110; RESP 18; TEMP 97.8; O2SAT 98
--- NOTE | 2017-10-02 13:58 | PD ---
HPI Chief Complaint: groin infection Time Seen by Provider: 13:34 Travel History International Travel<30 days: No Contact w/Intl Traveler<30days: No Traveled to known affect area: No History of Present Illness HPI 47yo M with PMH of DM here with c/o right groin pain since 5am today. Said a few days ago, there was pus coming out of this hole in right groin. Denies any fever, chest pain, sob, n/v, abdominal pain, focal weakness or numbness. PFSH Past Medical History Asthma: Yes Cancer: No Cardiovascular Problems: No Diabetes: Yes Patient Takes Glucophage: Yes Diminished Hearing: No Endocrine: No Genitourinary: No Hepatitis: Yes (C) Hiatal Hernia: Yes Immune Disorder: No Musculoskeletal: No Neurologic: No Psychiatric: No Reproductive: No Respiratory: Yes Tetanus Vaccination: < 5 Years Influenza Vaccination: Yes Past Surgical History Genitourinary Surgery: Yes (ON SCROTUM X 2 ) Other Surgery: Yes (HERNIA) Social History Alcohol Use: No Tobacco Use: Yes (1 PPD) Substance Use: No Allergies-Medications (Allergen,Severity, Reaction): Coded Allergies: tramadol (Verified Allergy, Severe, Nausea/Vomiting, 10/02/17) oxycodone (Verified Allergy, Mild, Itching, 10/02/17) Reported Meds & Prescriptions Reported Meds & Active Scripts Active Metformin (Metformin HCl) 500 Mg Tab 500 Mg PO BIDPC Bactrim DS (Sulfamethoxazole-Trimethoprim) 800-160 Mg Tab 1 Tab PO BID Metformin (Metformin HCl) 500 Mg Tab 500 Mg PO BIDPC With meals Review of Systems Except as stated in HPI: all other systems reviewed are Neg Physical Exam Narrative GENERAL: 47yo M in moderate distress. SKIN: Focused skin assessment warm/dry. HEAD: Atraumatic. Normocephalic. EYES: Pupils equal and round. No scleral icterus. No injection or drainage. ENT: No nasal bleeding or discharge. Mucous membranes pink and moist. NECK: Trachea midline. No JVD. CARDIOVASCULAR: Regular rate and rhythm. No murmur appreciated. RESPIRATORY: No accessory muscle use. Clear to auscultation. Breath sounds equal bilaterally. GASTROINTESTINAL: Abdomen soft, mild right lower abdominal ttp. No rebound tenderness or guarding. : +Erythema right medial thigh. +Induration right medial thigh and small opening right testes not draining. No fluctuance. MUSCULOSKELETAL: No obvious deformities. No clubbing. No cyanosis. No edema. NEUROLOGICAL: Awake and alert. No obvious cranial nerve deficits. Motor grossly within normal limits. Normal speech. PSYCHIATRIC: Appropriate mood and affect; insight and judgment normal. Data Data Last Documented VS Vital Signs Date Time Temp Pulse Resp B/P (MAP) Pulse Ox O2 Delivery O2 Flow Rate FiO2 10/02/17 16:35 102 16 108/65 (79) 97 Room Air 10/02/17 13:20 97.8 Orders Orders Complete Blood Count With Diff (10/02/17 13:49) Basic Metabolic Panel (Bmp) (10/02/17 13:49) Prothrombin Time / Inr (Pt) (10/02/17 13:49) Act Partial Throm Time (Ptt) (10/02/17 13:49) Ct Abd/Pel W Iv Contrast(Rout) (10/02/17 ) Lactic Acid Sepsis Protocol (10/02/17 13:49) Morphine Inj (Morphine Inj) (10/02/17 14:00) Blood Culture (10/02/17 13:49) Vancomycin Inj (Vancomycin Inj) (10/02/17 14:00) Piperacil-Tazo 3.375 Gm Premix (Zosyn 3. (10/02/17 14:00) Iohexol 350 Inj (Omnipaque 350 Inj) (10/02/17 15:03) Insulin Human Regular Inj (Novolin R Inj (10/02/17 16:00) Morphine Inj (Morphine Inj) (10/02/17 16:30) Blood Glucose (10/02/17 17:18) Labs Laboratory Tests Test 10/02/17 14:10 White Blood Count 9.9 TH/MM3 Red Blood Count 4.55 MIL/MM3 Hemoglobin 13.3 GM/DL Hematocrit 38.2 % Mean Corpuscular Volume 83.9 FL Mean Corpuscular Hemoglobin 29.2 PG Mean Corpuscular Hemoglobin Concent 34.8 % Red Cell Distribution Width 12.3 % Platelet Count 290 TH/MM3 Mean Platelet Volume 9.4 FL Neutrophils (%) (Auto) 71.3 % Lymphocytes (%) (Auto) 19.2 % Monocytes (%) (Auto) 7.8 % Eosinophils (%) (Auto) 1.2 % Basophils (%) (Auto) 0.5 % Neutrophils # (Auto) 7.1 TH/MM3 Lymphocytes # (Auto) 1.9 TH/MM3 Monocytes # (Auto) 0.8 TH/MM3 Eosinophils # (Auto) 0.1 TH/MM3 Basophils # (Auto) 0.0 TH/MM3 CBC Comment DIFF FINAL Differential Comment Prothrombin Time 10.2 SEC Prothromb Time International Ratio 1.0 RATIO Activated Partial Thromboplast Time 30.2 SEC Blood Urea Nitrogen 9 MG/DL Creatinine 1.10 MG/DL Random Glucose 658 MG/DL Calcium Level 8.9 MG/DL Sodium Level 127 MEQ/L Potassium Level 3.5 MEQ/L Chloride Level 94 MEQ/L Carbon Dioxide Level 24.7 MEQ/L Anion Gap 8 MEQ/L Estimat Glomerular Filtration Rate 72 ML/MIN Lactic Acid Level 3.3 mmol/L [facility] Medical Decision Making Medical Screen Exam Complete: Yes Emergency Medical Condition: Yes Differential Diagnosis Cellulitis vs. abscess vs. ian's gangrene Narrative Course 47yo M with right groin infection. Labs reviewed, no leukocytosis. Glucose is elevated at 658, no increased anion gap. CO2 normal. Pt has been noncompliant with metformin but requesting prescription. Pt given 10 units of regular insulin. Lactic acid elevated at 3.3. Pt given morphine which helped but pain is returning so another dose given. CT a/p showed inflammatory stranding in the subcutaneous tissue of the perineum/base of the penis extending in the medial thigh characteristic of regional cellulitis. No discrete fluid to suggest an associated abscess. Nonobstructing 5mm stone in the lower pole collecting system of the left kidney. Pt given empirically vancomycin and zosyn. Plan is to admit pt given extend of the cellulitis and elevated lactic acid. However, pt is refusing admission and said he just wants prescription for antibiotics. Pt is tolerating PO and instructed pt to hydrate orally. AMA: The risks of leaving against medical advice without further evaluation treatment were discussed with the patient. These risks include cardiac dysfunction, cardiac dysrhythmia, possible heart attack, possible stroke or . The patient indicated understanding of these risks and appeared to have the capacity to make this decision. Diagnosis Primary Impression: CELLULITIS OF PERINEUM Patient Instructions: General Instructions Departure Forms: Tests/Procedures Additional Instructions: Please return to the ED if you change your mind. Please follow up with [facility] in 1-2 days. Med/Other Pt SpecificInfo: Prescription(s) given Scripts Metformin (Metformin) 500 Mg Tab 500 MG PO BIDPC for Blood Sugar Management, #60 TAB 0 Refills Prov: Tiffany Miranda DO 10/02/17 Sulfamethoxazole-Trimethoprim (Bactrim DS) 800-160 Mg Tab 1 TAB PO BID for Infection, #20 TAB 0 Refills Prov: Tiffany Miranda DO 10/02/17 Disposition: 07 AGAINST MEDICAL ADVICE Condition: Stable Tiffany Miranda DO October 02, 2017 13:58
[2017-10-02] MEDS ORDERED: VANCOMYCIN INJ 1,250 MG in SODIUM CHLOR 0.9% 250 ML INJ 250 ML IV ONE (14:00)
[2017-10-02] MEDS ORDERED: PIPERACIL-TAZO 3.375 GM PREMIX 50 ML IV ONE (14:00)
[2017-10-02] MEDS ORDERED: MORPHINE SULFATE 8 MG/ML INJ IV PUSH ONE ×2 (14:00→16:30)
[2017-10-02 14:38] LABS: AUTOMATED NEUTROPHIL # 7.1 TH/MM3 (1.8-7.7); BASOPHIL % 0.5 % (0.0-2.0); EOSINOPHIL # 0.1 TH/MM3 (0-0.4); EOSINOPHIL % 1.2 % (0.0-4.0); HEMATOCRIT 38.2 % (39.0-51.0); HEMOGLOBIN 13.3 GM/DL (13.0-17.0); LYMPH % 19.2 % (9.0-44.0); LYMPHOCYTE # 1.9 TH/MM3 (1.0-4.8); MEAN CELL VOLUME 83.9 FL (80.0-100.0); MEAN CORPUSCULAR HEMOGLOBIN 29.2 PG (27.0-34.0); MEAN CORPUSCULAR HGB CONC 34.8 % (32.0-36.0); MEAN PLATELET VOLUME 9.4 FL (7.0-11.0); MONO % 7.8 % (0.0-8.0); MONOCYTE # 0.8 TH/MM3 (0-0.9); NEUT % 71.3 % (16.0-70.0); PLATELET COUNT 290 TH/MM3 (150-450); RED BLOOD COUNT 4.55 MIL/MM3 (4.50-5.90); RED CELL DISTRIBUTION WIDTH 12.3 % (11.6-17.2); WHITE BLOOD COUNT 9.9 TH/MM3 (4.0-11.0)
[2017-10-02 14:43] LABS: BICARBONATE 24.7 MEQ/L (21.0-32.0); CALCIUM 8.9 MG/DL (8.5-10.1)
[2017-10-02 14:44] LABS: PROTHROMBIN TIME - PATIENT 10.2 SEC (9.8-11.6)
[2017-10-02 14:47] LABS: CREATININE 1.1 MG/DL (0.60-1.30)
[2017-10-02 14:50] LABS: LACTIC ACID SEPSIS PROTOCOL 3.3 mmol/L (0.4-2.0)
[2017-10-02] MEDS ORDERED: IOHEXOL 350 MG/ML 10 ML VIAL (for RAD DIAG) IVCONTRAST ONE (15:03)
[2017-10-02] MEDS ORDERED: INSULIN HUMAN REGULAR 1,000 UNITS/10 ML VIAL SQ ONE (16:00)
--- NOTE | 2017-10-02 16:02 | RADRPT ---
EXAM DATE/TIME: 10/02/2017 14:49 [place] COMPARISON: CT ABDOMEN & PELVIS W CONTRAST, June 29, 2016, 20:18. INDICATIONS : Right inguinalpain. IV CONTRAST: 95 cc Omnipaque 350 (iohexol) IV ORAL CONTRAST: No oral contrast ingested. RADIATION DOSE: 27.49 CTDIvol (mGy) MEDICAL HISTORY : Hernia, hiatal. Diabetes. SURGICAL HISTORY : None. ENCOUNTER: Initial ACUITY: 1 day PAIN SCALE: 6/10 LOCATION: Right pelvis TECHNIQUE: Volumetric scanning of the abdomen and pelvis was performed. Using automated exposure control and ad justment of the mA and/or kV according to patient size, radiation dose was kept as low as reasonably achievable to obtain optimal diagnostic quality images. DICOM format image data is available electro nically for review and comparison. FINDINGS: LOWER LUNGS: The visualized lower lungs are clear. LIVER: Diffusely diminished hepatic attenuation suggesting fatty infiltration. There is no dilation of the biliary tree. No calcified gallstones. SPLEEN: Normal size without lesion. PANCREAS: Within normal limits. KIDNEYS: Normal in size and shape. Small, 5 mm nonobstructing stone in the lower pole collecting system of lef t kidney. ADRENAL GLANDS: Within normal limits. VASCULAR: There is no aortic aneurysm. BOWEL/MESENTERY: The stomach, small bowel, and colon demonstrate no acute abnormality. There is no free intraperitone al air or fluid. ABDOMINAL WALL: Within normal limits. RETROPERITONEUM: There is no lymphadenopathy. BLADDER: No wall thickening or mass. REPRODUCTIVE: Dystrophic type calcification in the prostate. INGUINAL: Inflammatory stranding in the subcutaneous tissues at the base of the penis extending into the medial thigh and inguinal region. Likely reactive a lymph nodes in the right inguinal region measuring up t o 1.6 cm in diameter. No drainable fluid to suggest an abscess. MUSCULOSKELETAL: Old healed fracture deformity of the anterior lower right rib. Otherwise intact. CONCLUSION: 1. Inflammatory stranding in the subcutaneous tissues of the perineum/base of penis extending in the medial thigh characteristic of regional cellulitis. No discrete fluid collection to suggest an associ ated abscess. 2. Borderline prominent lymph nodes in the right inguinal region measuring up to 1.6 cm in diameter a re all most certainly reactive. 3. Nonobstructing 5 mm stone in the lower pole collecting system of the left kidney Robin Price MD on October 02, 2017 at 15:54 Board Certified Radiologist. This report was verified electronically.
[2017-10-02 16:35] VITALS: BP 108/65; PULSE 102; RESP 16; RESP 18; O2SAT 97
[2017-10-02] MEDS ORDERED: METF500T PO (17:18)
[2017-10-02] MEDS ORDERED: BACT800T5 PO (17:18)
== END 2017-10-02 18:00 | disposition left against medical advice (07) ==
LOC: PHED 13:12
DX: L03.315 Cellulitis of perineum (principal); R74.0 Nonspecific elevation of levels of transaminase and lactic acid dehydrogenase [LDH]; E11.9 Type 2 diabetes mellitus without complications; J45.909 Unspecified asthma, uncomplicated; F17.210 Nicotine dependence, cigarettes, uncomplicated; Z88.5 Allergy status to narcotic agent; Z79.4 Long term (current) use of insulin
CPT/HCPCS: 74177; 80048; 83605; 85025; 85610; 85730; 87040; 96365; 96367; 96372; 96375; 96376; 99285; J1815; J2270; J2543; J3370; J7050; Q9967

== ENCOUNTER 2017-10-03 06:31 | Inpatient (IN) | payer SELFPAY ==
[2017-10-03] VITALS (22 sets, daily range): BP systolic 97–120; BP diastolic 49–93; PULSE 76–113; RESP 16–30; TEMP 97.9–100; O2SAT 89–99
[~2017-10-03] VITALS: Ht 182.9 cm; Wt 124.2 kg
[~2017-10-03 06:31] MED LIST changes: -AUGM875T3 PO; +BACT800T5 PO; -LACTCHW3 CHEW; -MSIR15 PO; -NYST15T TOPICAL; -PERI PO
[2017-10-03] MEDS ORDERED: VANCOMYCIN INJ 1,000 MG in SODIUM CHLOR 0.9% 250 ML INJ 250 ML IV ONE (07:00)
[2017-10-03] MEDS ORDERED: ACETAMINOPHEN 325 MG TAB PO ONE (07:00)
[2017-10-03] MEDS ORDERED: PIPERACIL-TAZO 4.5 GM PREMIX 100 ML IV ONE (07:00)
[2017-10-03] MEDS ORDERED: SODIUM CHLOR 0.9% 1000 ML INJ 1,000 ML IV ONE ×3 (07:00→07:15)
--- NOTE | 2017-10-03 07:07 | PD ---
HPI Chief Complaint: Skin Problem Time Seen by Provider: 07:07 Travel History International Travel<30 days: No Contact w/Intl Traveler<30days: No Traveled to known affect area: No History of Present Illness HPI 47-year-old male came to the emergency room with history of right groin swelling , pain, redness for past 3-4 days. Patient was in the emergency room yesterday for the exact complaint and was diagnosed with cellulitis and sepsis. Patient is a diabetic. He was recommended for admission. However patient had to leave yesterday for family matters he said. He is back here today and says that his blood sugar was 600. Bedside blood sugar was 551. Patient was tachycardic in triage. He appears to be in moderate distress. Pain is localized to the right groin area. It is constantly there and worse upon touching the area. Patient had blood test and CAT scan done yesterday. PFSH Past Medical History Narrative Medical List of his past medical, surgical, social and family history is reviewed from the nursing note. Asthma: Yes Cancer: No Cardiovascular Problems: No Diabetes: Yes Patient Takes Glucophage: Yes Diminished Hearing: No Endocrine: No Genitourinary: No Hepatitis: Yes (C) Hiatal Hernia: Yes Immune Disorder: No Musculoskeletal: No Neurologic: No Psychiatric: No Reproductive: No Respiratory: Yes Tetanus Vaccination: < 5 Years Influenza Vaccination: Yes Past Surgical History Genitourinary Surgery: Yes (ON SCROTUM X 2 ) Other Surgery: Yes (HERNIA) Social History Alcohol Use: No Tobacco Use: Yes (1 PPD) Substance Use: No Allergies-Medications (Allergen,Severity, Reaction): Coded Allergies: tramadol (Verified Allergy, Severe, Nausea/Vomiting, 10/02/17) Comments List of his allergies reviewed from the nursing note. Reported Meds & Prescriptions Reported Meds & Active Scripts Active Metformin (Metformin HCl) 500 Mg Tab 500 Mg PO BIDPC With meals Narrative Medication List of his home medications reviewed from the nursing note. Review of Systems Except as stated in HPI: all other systems reviewed are Neg General / Constitutional: Positive: Fever, Chills Skin: Positive Rash Physical Exam Narrative GENERAL: Awake, alert, anxious, moderate distress SKIN: Focused skin assessment warm/dry. Right groin area has significant redness, swelling, induration and tenderness and warmth to touch. This area expands to 6 cm x 4 cm. No streaking or fluctuance HEAD: Atraumatic. Normocephalic. EYES: Pupils equal and round. No scleral icterus. No injection or drainage. ENT: No nasal bleeding or discharge. Mucous membranes pink and moist. NECK: Trachea midline. No JVD. CARDIOVASCULAR: Regular rate and rhythm. No murmur appreciated. RESPIRATORY: No accessory muscle use. Clear to auscultation. Breath sounds equal bilaterally. GASTROINTESTINAL: Abdomen soft, non-tender, nondistended. Hepatic and splenic margins not palpable. MUSCULOSKELETAL: No obvious deformities. No clubbing. No cyanosis. No edema. NEUROLOGICAL: Awake and alert. No obvious cranial nerve deficits. Motor grossly within normal limits. Normal speech. PSYCHIATRIC: Appropriate mood and affect; insight and judgment normal. Data Data Last Documented VS Orders Orders Sepsis Workup Initiated (10/03/17 ) Complete Blood Count With Diff (10/03/17 06:50) Comprehensive Metabolic Panel (10/03/17 06:50) Lactic Acid Sepsis Protocol (10/03/17 06:50) Urinalysis - C+S If Indicated (10/03/17 06:50) Blood Culture (10/03/17 06:50) Blood Glucose (10/03/17 06:50) Ecg Monitoring (10/03/17 06:50) Iv Access Insert/Monitor (10/03/17 06:50) Oximetry (10/03/17 06:50) Oxygen Administration (10/03/17 06:50) Acetaminophen (Tylenol) (10/03/17 07:00) Sodium Chlor 0.9% 1000 Ml Inj (Ns 1000 M (10/03/17 07:00) Piperacil-Tazo 4.5 Gm Premix (Zosyn 4.5 (10/03/17 07:00) Vancomycin Inj (Vancomycin Inj) (10/03/17 07:00) Creatine Kinase (Cpk) (10/03/17 06:50) Sodium Chlor 0.9% 1000 Ml Inj (Ns 1000 M (10/03/17 07:15) Sodium Chlor 0.9% 1000 Ml Inj (Ns 1000 M (10/03/17 07:15) Beta Hydroxybutyrate (Acetone) (10/03/17 07:10) Blood Gas Venous (Vbg) (10/03/17 07:10) Insulin Human Regular Inj (Novolin R Inj (10/03/17 07:15) Admit Order (Ed Use Only) (10/03/17 07:23) MDM Medical Decision Making Medical Screen Exam Complete: Yes Emergency Medical Condition: Yes Medical Record Reviewed: Yes Differential Diagnosis Cellulitis, Samantha's gangrene/cellulitis, sepsis, DKA Narrative Course 7:19 AM patient is getting 2 L of IV fluid bolus and 10 units of insulin IV. Awaiting for blood test result. IV Zosyn and vancomycin has been ordered. Patient will require admission and given his diabetes and the location of the cellulitis and extend I would recommend ICU admission. I spoke with the cooler supervisor who happens to be in the emergency room seeing another patient and she agreed and has accepted the case. Critical Care Narrative Aggregate critical care time was 45 minutes. Time to perform other separately billable procedures was not included in the critical care time. My time did not include minutes spent treating any other patients simultaneously or on activities that did not directly contribute to the patient's treatment. The services I provided to this patient were to treat and/or prevent clinically significant deterioration that could result in: Sepsis, sepsis protocol I provided critical care services requiring my management, as noted below: Chart data review, documentation time, medication orders and management, vital sign assessments/reviewing monitor data, ordering and reviewing lab tests, ordering and interpreting/reviewing x-rays and diagnostic studies, care of the patient and discussion of the patient with the admitting physicians. Procedures EKG Prior to Arrival: No Sepsis Criteria SIRS Criteria (2 or more): Heart rate over 90, WBC > 26348, < 4000 or > 10% bands Sepsis Criteria (SIRS+source): Infect source susp/known Physician Communication Physician Communication Dr. Dorado Diagnosis Primary Impression: Cellulitis of leg Additional Impressions: Sepsis Qualified Codes: A41.9 - Sepsis, unspecified organism Hyperglycemia Scripts Hydrocodone-Acetaminophen ([place]) 7.5-325 mg Tab 1 TAB PO Q6H Y for PAIN, #20 TAB 0 Refills Prov: Sameer Espinoza MD 10/07/17 Clindamycin (Clindamycin) 300 Mg Cap 300 MG PO Q6H for Infection, #56 CAP 0 Refills Prov: Sameer Espinoza MD 10/07/17 Ciprofloxacin (Cipro) 500 Mg Tab 500 MG PO BID for Infection, #28 TAB 0 Refills Prov: Sameer Espinoza MD 10/07/17 Metformin (Metformin) 500 Mg Tab 500 MG PO BIDPC for Blood Sugar Management, #60 TAB 3 Refills Prov: Sameer Espinoza MD 10/07/17 Liv Cheng MD October 03, 2017 07:07
[2017-10-03] MEDS ORDERED: INSULIN HUMAN REGULAR 1,000 UNITS/10 ML VIAL IV PUSH ONE (07:15)
--- NOTE | 2017-10-03 07:48 | HHI.HP ---
HPI Service Critical Care Medicine Primary Care Physician No Primary Care Physician Admission Diagnosis Cellulitis, sepsis, hyperglycemia Diagnosis: Travel History International Travel<30 Days: No Contact w/Intl Traveler <30 Da: No Traveled to Known Affected Are: No Sepsis Criteria SIRS Criteria (2 or more): Heart rate over 90, WBC > 91214, < 4000 or > 10% bands Sepsis Criteria (SIRS+source): Infect source susp/known Severe Sepsis (+one): Lactate >2 Criteria Outcome: Meets severe sepsis criteria History of Present Illness 47-year-old male with past medical history of diabetes, hepatitis C, obesity who presented to [facility] yesterday with R groin/thigh cellulitis. He says he had a abscess on his right scrotum that "opened up" about 2 weeks ago and drained. He states he looked at the area at 5 am on 10/02 and it was "a little sore" but looked fine and then at 11 am he noticed swelling, redness and tenderness in medial aspect of right upper thigh, just below inguinal ligament. He came to [facility] ED where WBC was 9.9, glucose was 658, lactic acid 3.3. He was afebrile. CT was obtained and there was inflammatory stranding at the base of the penis and extending to the medial thigh. There was no abscess. ED physician recommended admission but patient states he left AMA due to a family emergency. He did receive Zosyn, Vancomycin, and insulin 10 units subcut prior to leaving AMA. He has taken one dose of bactrim since discharge. He has not taken anything for his glucose because metformin was held due to IV contrast administration. He returns stating "I told the ED doctor I would come back". His temp is 100.0. He states the pain and redness in right upper thigh is worse. Review of Systems ROS Limitations: Clinical Condition Past Family Social History Allergies: Coded Allergies: tramadol (Verified Allergy, Severe, Nausea/Vomiting, 10/02/17) Past Medical History Type II Diabetes mellitus diagnosed in 2011 Obesity Hepatitis C he states he has previously undergone antiviral therapy in [place] Genital herpes Phimosis in August 2015, follow-up with urology was previously recommended but he stated he could not follow up due to financial constraints/lack of insurance. Prior admission for 4 days in April 2017 for right lower extremity cellulitis with beta strep. Past Surgical History Left inguinal hernia repair with mesh Abscess in groin I&D 2 in [place] in 2012 Reported Medications Metformin 500 mg p.o. twice daily Bactrim 1 tab p.o. twice daily Family History His father had diabetes and had blindness at age 36 due to diabetes. His father at age 56 and had experienced myocardial infarction and stroke Sister has MS Social History Smokes half pack of cigarettes per day No alcohol or illicit drug use Physical Exam Vital Signs Vital Signs Date Time Temp Pulse Resp B/P (MAP) Pulse Ox O2 Delivery O2 Flow Rate FiO2 10/03/17 06:40 100.0 113 18 107/68 (81) 97 Physical Exam GENERAL: Obesee well-developed patient who appears in significant pain, in ED stretcher. SKIN: Warm and dry. HEAD: Atraumatic. Normocephalic. EYES: Pupils equal and round. No scleral icterus. No injection or drainage. ENT: No nasal bleeding or discharge. Mucous membranes dry NECK: Trachea midline. No JVD. CARDIOVASCULAR: Tachycardic, regular, sinus tach on the monitor with no mrg. RESPIRATORY: Breathing comfortably with no accessory muscle Use. . Clear to auscultation. Breath sounds equal bilaterally. On RA. GASTROINTESTINAL: Abdomen soft, non-tender, nondistended. Reducible ventral hernia superior to umbilicus. /MSK: Linear area of erythema and induration inferior to inguinal crease without palpable fluctuance or drainage. There is erythema that extends 2[address] the right thigh but this area is not indurated. There is also a palpable raised area just superior to inguinal ligament on the right but the overlying skin is not indurated. The right side of the scrotum is erythematous with ~2 cm area where appears abscess has previously opened up subacutely but there is no active drainage. There is another smaller ~1 cm area that has previously opened and appears to be healing at the junction between the right scrotum and the inner right thigh. There is no naye-rectal erythema, no abdominal wall erythema. No necrotizing lesions or crepitus. There is phimosis present with some candidal appearing discharge. NEUROLOGICAL: Awake and alert. No obvious cranial nerve deficits. Motor grossly within normal limits. Normal speech. Laboratory Laboratory Tests Test 10/03/17 07:35 Blood Gas Puncture Site VENOUS Blood Gas Patient Temperature 98.6 Venous Blood pH 7.51 Venous Blood Partial Pressure CO2 31 Venous Blood Partial Pressure O2 39 Venous Blood HCO3 24 Venous Blood Oxygen Saturation 76 Venous Blood Oxygen Content 14.1 Venous Blood Base Excess 1.2 Oxygen Delivery Device RA Blood Gas Inspired Oxygen 21 Septic Shock Reassessment Septic shock perfusion: reassessment completed Caprini VTE Risk Assessment Caprini VTE Risk Assessment: Mod/High Risk (score >= 2) Caprini Risk Assessment Model Point Value = 1 Point Value = 2 Point Value = 3 Point Value = 5 Age 41-60 Minor surgery BMI > 25 kg/m2 Swollen legs Varicose veins or History of unexplained or recurrent spontaneous Oral contraceptives or hormone replacement Sepsis (< 1 month) Serious lung disease, including pneumonia (< 1 month) Abnormal pulmonary function Acute myocardial infarction Congestive heart failure (< 1 month) History of inflammatory bowel disease Medical patient at bed rest Age 61-74 Arthroscopic surgery Major open surgery (> 45 min) Laparoscopic surgery (> 45 min) Malignancy Confined to bed (> 72 hours) Immobilizing plaster cast Central venous access Age >= 75 History of VTE Family history of VTE Factor V Leiden Prothrombin [id number] Lupus anticoagulant Anticardiolipin antibodies Elevated serum homocysteine Heparin-induced thrombocytopenia Other congenital or acquired thrombophilia Stroke (< 1 month) Elective arthroplasty Hip, pelvis, or leg fracture Acute spinal cord injury (< 1 month) Prophylaxis Regimen Total Risk Factor Score Risk Level Prophylaxis Regimen 0-1 Low Early ambulation 2 Moderate Order ONE of the following: *Sequential Compression Device (SCD) *Heparin 5000 units SQ BID 3-4 Higher Order ONE of the following medications: *Heparin 5000 units SQ TID *Enoxaparin/Lovenox 40 mg SQ daily (WT < 150 kg, CrCl > 30 mL/min) *Enoxaparin/Lovenox 30 mg SQ daily (WT < 150 kg, CrCl > 10-29 mL/min) *Enoxaparin/Lovenox 30 mg SQ BID (WT < 150 kg, CrCl > 30 mL/min) AND/OR *Sequential Compression Device (SCD) 5 or more Highest Order ONE of the following medications: *Heparin 5000 units SQ TID (Preferred with Epidurals) *Enoxaparin/Lovenox 40 mg SQ daily (WT < 150 kg, CrCl > 30 mL/min) *Enoxaparin/Lovenox 30 mg SQ daily (WT < 150 kg, CrCl > 10-29 mL/min) *Enoxaparin/Lovenox 30 mg SQ BID (WT < 150 kg, CrCl > 30 mL/min) AND *Sequential Compression Device (SCD) Assessment and Plan Problem List: (1) Phimosis ICD Code: N47.1 - Phimosis Status: Chronic (2) Cellulitis of right thigh ICD Code: L03.115 - Cellulitis of right lower limb Status: Acute (3) Type 2 diabetes mellitus ICD Code: E11.9 - Type 2 diabetes mellitus without complications Status: Acute (4) Hyperglycemia ICD Code: R73.9 - Hyperglycemia, unspecified Status: Acute (5) Obesity (BMI 30-39.9) ICD Code: E66.9 - Obesity, unspecified Status: Chronic (6) Severe sepsis ICD Code: A41.9 - Sepsis, unspecified organism; R65.20 - Severe sepsis without septic shock Status: Acute (7) Tobacco abuse ICD Code: Z72.0 - Tobacco use Status: Chronic Assessment and Plan NEURO: Pain secondary to cellulitis Lortab as needed for pain. Patient denies history of oxycodone allergy and states he wishes that to be removed from his record Dilaudid 0.5-1 q3 as needed for breakthrough RESP: Tobacco abuse On room air Tobacco cessation counseling IS q1 hour CV: Lactic acidosis Follow-up lactic acid GI: NPO for now until glucose improving and u/s to evaluate need for I and D/ surgery. FEN/RENAL: Severe Hyperglycemia Pseudohyponatremia Receiving 3 L NS bolus in the ED. NS 120 ml/hr. ID/UROLOGY: Severe sepsis Right thigh and scrotum abscess Leukocytosis Balanitis Chronic Phimosis - he is able to void. Does not appear to be Fourn[place] at this time. Margins of cellulitis marked. Obtain ultrasound to evaluate for abscess amenable to drainage and will consult urology if I and D needed. CT abd/pelvis 10/02 showed stranding from base of penis to right thigh but no fluid collection. Continue vancomycin and zosyn. Clotrimazole 1% bid for balanitis. Followup blood cultures 10/03. HEME: Monitor CBC ENDO: Diabetes mellitus Monitor bedside glucose every 4 hours and initiate medium dose sliding scale as indicated Hold metformin PROPH: SCDs for DVT prophylaxis. Heparin subcu for DVT prophylaxis. ACCESS: Peripheral IV providing adequate access at this time FULL CODE Level 3 H and P Edyta Dorado MD October 03, 2017 07:48
[2017-10-03 08:00] LABS: AUTOMATED NEUTROPHIL # 9.3 TH/MM3 (1.8-7.7); BASOPHIL # 0.1 TH/MM3 (0-0.2); BASOPHIL % 0.4 % (0.0-2.0); EOSINOPHIL # 0.1 TH/MM3 (0-0.4); EOSINOPHIL % 0.8 % (0.0-4.0); HEMATOCRIT 38.2 % (39.0-51.0); HEMOGLOBIN 13.6 GM/DL (13.0-17.0); LYMPH % 20.4 % (9.0-44.0); LYMPHOCYTE # 2.7 TH/MM3 (1.0-4.8); MEAN CELL VOLUME 84.4 FL (80.0-100.0); MEAN CORPUSCULAR HGB CONC 35.5 % (32.0-36.0); MONO % 8.1 % (0.0-8.0); MONOCYTE # 1.1 TH/MM3 (0-0.9); NEUT % 70.3 % (16.0-70.0); PLATELET COUNT 301 TH/MM3 (150-450); RED BLOOD COUNT 4.52 MIL/MM3 (4.50-5.90); RED CELL DISTRIBUTION WIDTH 12.4 % (11.6-17.2); WHITE BLOOD COUNT 13.3 TH/MM3 (4.0-11.0)
[2017-10-03] MEDS ORDERED: LACTULOSE SYRUP 20 GM/30 ML CUP PO PRN (08:00)
[2017-10-03] MEDS ORDERED: CHLORHEXIDINE GLUCONATE 2 % 1 PACK (2 CLOTHS) TOP PRN (08:00)
[2017-10-03] MEDS ORDERED: SENNOSIDES 8.6 MG TAB PO PRN (08:00)
[2017-10-03] MEDS ORDERED: BISACODYL 10 MG SUPP RECTAL PRN (08:00)
[2017-10-03] MEDS ORDERED: NURSING INFORMATION XX SCH (08:00)
[2017-10-03] MEDS ORDERED: MAGNESIUM HYDROXIDE SUSP 30 ML CUP PO PRN (08:00)
[2017-10-03] MEDS ORDERED: RESP: ALBUTEROL 2.5 MG/3 ML NEB (PRN) INH (08:00)
[2017-10-03 08:05] LABS: CHLORIDE 92 MEQ/L (98-107); SODIUM (NA) 126 MEQ/L (136-145)
[2017-10-03 08:09] LABS: CALCIUM 9.1 MG/DL (8.5-10.1)
[2017-10-03 08:10] LABS: BICARBONATE 25.1 MEQ/L (21.0-32.0); BLOOD UREA NITROGEN 10 MG/DL (7-18)
[2017-10-03 08:13] LABS: ALT (GPT) 24 U/L (12-78); AST (GOT) 13 U/L (15-37); CREATININE 0.94 MG/DL (0.60-1.30); GLOMERULAR FILTRATION RATE 86 ML/MIN (>89)
[2017-10-03 08:14] LABS: TOTAL BILIRUBIN ADULT 0.8 MG/DL (0.2-1.0)
[2017-10-03 08:15] LABS: TOTAL PROTEIN 7.6 GM/DL (6.4-8.2)
[2017-10-03 08:17] LABS: LACTIC ACID SEPSIS PROTOCOL 2.1 mmol/L (0.4-2.0)
[2017-10-03 08:21] LABS: ALKALINE PHOSPHATASE 131 U/L (45-117)
[2017-10-03 08:25] LABS: GLUCOSE,RANDOM 560 MG/DL (74-106)
[2017-10-03] MEDS ORDERED: ACETAMINOPHEN/HYDROcodone 325 MG/7.5 MG TAB PO PRN (08:30)
[2017-10-03] MEDS ORDERED: GLUCAGON 1 MG/ML VIAL OTHER PRN ×2 (08:45→12:15)
[2017-10-03] MEDS: SODIUM CHLORIDE 0.9% FLUSH 10 ML FLUSH IV FLUSH SCH ×2 (08:45→21:11)
[2017-10-03] MEDS ORDERED: HYDROmorphone HCL PF 1 MG/ML VIAL IV PUSH PRN (08:45)
[2017-10-03] MEDS ORDERED: DEXTROSE 50% IN WATER 50 ML VIAL(D50) IV PUSH PRN ×2 (08:45→12:15)
[2017-10-03] MEDS ORDERED: HYDROmorphone HCL PF 2 MG/ML VIAL IV PUSH ONE (08:45)
[2017-10-03] MEDS: DOCUSATE SODIUM 50 MG/SENNA 8.6 MG TAB PO SCH ×2 (09:00→21:13)
[2017-10-03] MEDS ORDERED: INSULIN ASPART SUPPLEMENTAL SCALE SQ SCH (09:00)
[2017-10-03] MEDS: HEPARIN SODIUM - SQ 10,000 UNITS/ML VIAL SQ SCH ×2 (10:35→21:14)
--- NOTE | 2017-10-03 10:46 | RADRPT ---
EXAM DATE: 10/03/2017 10:26 AM EDT AGE/SEX: 47 years / Male INDICATIONS: Right groin and upper leg redness and swelling. CLINICAL DATA: This is the patient's initial encounter. Patient reports that signs and symptoms have been present for 3 days and indicates a pain score of 10/10. Location: Laterality: MEDICAL/SURGICAL HISTORY: Hiatal hernia. Hepatitis C. Diabetic. . Scrotal surgery. COMPARISON: No prior [facility] exams available for comparison. FINDINGS: Edematous tissues in the right groin region. No evidence of discrete mass or collection. CONCLUSION: Nonspecific edematous changes. Electronically signed by: Otis Douglas MD 10/03/2017 10:45 AM EDT
[2017-10-03] MEDS: ACETAMINOPHEN/HYDROcodone 325 MG/7.5 MG TAB PO PRN (11:40)
[2017-10-03 12:17] LABS: BILIRUBIN, URINE NEG (NEG); BLOOD, URINE NEG (NEG); GLUCOSE,URINE 1000 OR GREATER mg/dL (NEG); KETONE, URINE TRACE mg/dL (NEG); NITRITE,URINE NEG (NEG); PH, URINE 5.5 (5.0-8.5); URINE COLOR YELLOW (YELLW/STRAW); URINE LEUKOCYTE ESTERASE NEG (NEG)
[2017-10-03 12:24] LABS: RBC, URINE 0-3 /hpf (0-3)
[2017-10-03 12:25] LABS: SQUAMOUS EPITHELIAL CELL URINE 0-5 /hpf (0-5)
[2017-10-03] MEDS: FAMOTIDINE 20 MG/2 ML VIAL IV PUSH SCH ×2 (12:49→21:11)
[2017-10-03] MEDS: HYDROmorphone HCL PF 2 MG/ML VIAL IV PUSH PRN ×2 (14:43→22:29)
[2017-10-03] MEDS: INSULIN ASPART SUPPLEMENTAL SCALE SQ SCH ×3 (14:43→21:11)
[2017-10-03] MEDS: SODIUM CHLOR 0.9% 1000 ML INJ 1,000 ML IV SCH ×2 (16:14→17:24)
[2017-10-03] MEDS: CLOTRIMAZOLE 1% CREAM 15 GM TOPICAL SCH ×2 (17:25→21:14)
[2017-10-04] VITALS (26 sets, daily range): BP systolic 91–121; BP diastolic 57–73; PULSE 77–96; RESP 15–24; TEMP 97.9–98.6; O2SAT 91–96
[2017-10-04] MEDS: INSULIN ASPART SUPPLEMENTAL SCALE SQ SCH ×6 (00:12→20:10)
[2017-10-04] MEDS: SODIUM CHLOR 0.9% 1000 ML INJ 1,000 ML IV SCH ×3 (01:00→17:14)
[2017-10-04] MEDS: HYDROmorphone HCL PF 2 MG/ML VIAL IV PUSH PRN ×6 (03:49→23:53)
[2017-10-04] MEDS: CHLORHEXIDINE GLUCONATE 2 % 1 PACK (2 CLOTHS) TOP SCH (04:00)
[2017-10-04 05:19] LABS: BASOPHIL % 0.5 % (0.0-2.0); EOSINOPHIL # 0.2 TH/MM3 (0-0.4); EOSINOPHIL % 2.5 % (0.0-4.0); HEMATOCRIT 36.1 % (39.0-51.0); HEMOGLOBIN 12.3 GM/DL (13.0-17.0); LYMPH % 26.9 % (9.0-44.0); LYMPHOCYTE # 2.5 TH/MM3 (1.0-4.8); MEAN CORPUSCULAR HGB CONC 34.2 % (32.0-36.0); MEAN PLATELET VOLUME 8.8 FL (7.0-11.0); MONO % 8.8 % (0.0-8.0); MONOCYTE # 0.8 TH/MM3 (0-0.9); NEUT % 61.3 % (16.0-70.0); PLATELET COUNT 289 TH/MM3 (150-450); RED BLOOD COUNT 4.25 MIL/MM3 (4.50-5.90); RED CELL DISTRIBUTION WIDTH 12.1 % (11.6-17.2); WHITE BLOOD COUNT 9.5 TH/MM3 (4.0-11.0)
[2017-10-04 05:44] LABS: ALBUMIN 2.4 GM/DL (3.4-5.0); ALKALINE PHOSPHATASE 98 U/L (45-117); ALT (GPT) 52 U/L (12-78); AST (GOT) 46 U/L (15-37); BICARBONATE 27.7 MEQ/L (21.0-32.0); BLOOD UREA NITROGEN 5 MG/DL (7-18); CALCIUM 8.7 MG/DL (8.5-10.1); CHLORIDE 103 MEQ/L (98-107); CREATININE 0.46 MG/DL (0.60-1.30); GLOMERULAR FILTRATION RATE 197 ML/MIN (>89); GLUCOSE,RANDOM 128 MG/DL (74-106); MAGNESIUM 2.2 MG/DL (1.5-2.5); PHOSPHORUS 3.1 MG/DL (2.5-4.9); SODIUM (NA) 137 MEQ/L (136-145); TOTAL BILIRUBIN ADULT 0.6 MG/DL (0.2-1.0); TOTAL PROTEIN 6.4 GM/DL (6.4-8.2)
[2017-10-04] MEDS: DOCUSATE SODIUM 50 MG/SENNA 8.6 MG TAB PO SCH ×2 (09:00→20:12)
[2017-10-04] MEDS: FAMOTIDINE 20 MG/2 ML VIAL IV PUSH SCH (09:36)
[2017-10-04] MEDS: SODIUM CHLORIDE 0.9% FLUSH 10 ML FLUSH IV FLUSH SCH ×2 (09:36→20:12)
[2017-10-04] MEDS: HEPARIN SODIUM - SQ 10,000 UNITS/ML VIAL SQ SCH ×2 (09:38→20:11)
[2017-10-04] MEDS: CLOTRIMAZOLE 1% CREAM 15 GM TOPICAL SCH ×2 (09:38→20:19)
[2017-10-04] MEDS ORDERED: INFLUENZA VIRUS VACCINE (QUADRIVALENT) 0.5 ML SYR IM ONE (10:00)
[2017-10-04] MEDS ORDERED: POTASSIUM PHOSPHATE INJ 30 MMOL in SODIUM CHLOR 0.9% 250 ML INJ 250 ML IV PRN (13:15)
[2017-10-04] MEDS ORDERED: MAGNESIUM SULFATE INJ 4 GM in SODIUM CHLORIDE 0.9% INJ 92 ML IV PRN (13:15)
[2017-10-04] MEDS ORDERED: POTASSIUM CHLOR 20 MEQ PREMIX 100 ML IV PRN (13:15)
[2017-10-04] MEDS ORDERED: MAGNESIUM SULFATE INJ 2 GM in SODIUM CHLORIDE 0.9% INJ 96 ML IV PRN (13:15)
[2017-10-04] MEDS ORDERED: MAGNESIUM OXIDE 400 MG TAB PO PRN (13:15)
[2017-10-04] MEDS ORDERED: POTASSIUM PHOSPHATE MONOBASIC 500 MG TAB PO/TUBE PRN (13:15)
[2017-10-04] MEDS ORDERED: POTASSIUM CHLORIDE 25 MEQ EFFERVESCENT TAB PO PRN (13:15)
[2017-10-04] MEDS ORDERED: SODIUM PHOSPHATE INJ 30 MMOL in SODIUM CHLOR 0.9% 250 ML INJ 240 ML IV PRN (13:15)
[2017-10-04] MEDS ORDERED: POTASSIUM PHOSPHATE MONOBASIC 500 MG TAB PO PRN (13:15)
[2017-10-04] MEDS ORDERED: POTASSIUM CHLOR 40 MEQ PREMIX 100 ML IV PRN ×2 (13:15)
[2017-10-04] MEDS: POTASSIUM CHLOR 20 MEQ PREMIX 100 ML IV PRN ×3 (14:07→20:19)
[2017-10-04] MEDS: PIPERACIL-TAZO 3.375 GM PREMIX 50 ML IV SCH ×2 (15:46→19:48)
--- NOTE | 2017-10-04 17:17 | HHI.CCPN ---
Subjective Remarks/Hospital Course 10/03: 47-year-old male with past medical history of diabetes, hepatitis C, obesity who presented to [facility] ED yesterday with R groin/thigh cellulitis. He says he had a abscess on his right scrotum that "opened up" about 2 weeks ago and drained. He states he looked at the area at 5 am on 10/02 and it was "a little sore" but looked fine and then at 11 am he noticed swelling, redness and tenderness in medial aspect of right upper thigh, just below inguinal ligament. He came to [facility] ED where WBC was 9.9, glucose was 658, lactic acid 3.3. He was afebrile. CT was obtained and there was inflammatory stranding at the base of the penis and extending to the medial thigh. There was no abscess. ED physician recommended admission but patient states he left AMA due to a family emergency. He did receive Zosyn, Vancomycin, and insulin 10 units subcut prior to leaving AMA. He has taken one dose of bactrim since discharge. He has not taken anything for his glucose because metformin was held due to IV contrast administration. He returns stating "I told the ED doctor I would come back". His temp is 100.0. He states the pain and redness in right upper thigh is worse. 10/04: Complaining of pain over site of right-sided groin swelling and erythema. Denies any shortness of breath. Does not appear to be in any acute distress. Objective Vital Signs Date Time Temp Pulse Resp B/P (MAP) Pulse Ox O2 Delivery O2 Flow Rate FiO2 10/04/17 16:00 84 18 121/70 (87) 95 10/04/17 15:54 98.4 10/03/17 20:12 21 10/03/17 15:37 Nasal Cannula 2.00 Intake and Output 10/04/17 10/04/17 10/05/17 08:00 16:00 00:00 Intake Total 2400 ml 150 ml Output Total 900 ml Balance 1500 ml 150 ml Result Diagram: 10/04/1741910/04/17419 Objective Remarks GENERAL: Obese well-developed patient sitting up in bed not in any acute distress. SKIN: Warm and dry. HEAD: Atraumatic. Normocephalic. EYES: Pupils equal and round. No scleral icterus. No injection or drainage. ENT: No nasal bleeding or discharge. Mucous membranes dry NECK: Trachea midline. No JVD. CARDIOVASCULAR: Tachycardic, regular, sinus tach on the monitor with no mrg. RESPIRATORY: Breathing comfortably with no accessory muscle Use. . Clear to auscultation. Breath sounds equal bilaterally. On RA. GASTROINTESTINAL: Abdomen soft, non-tender, nondistended. Reducible ventral hernia superior to umbilicus. /MSK: Linear area of erythema and induration inferior to inguinal crease without palpable fluctuance or drainage. There is erythema that extends 2/[address] the right thigh but this area is not indurated. There is also a palpable raised area just superior to inguinal ligament on the right but the overlying skin is not indurated. The right side of the scrotum is erythematous with ~2 cm area where appears abscess has previously opened up subacutely but there is no active drainage. There is another smaller ~1 cm area that has previously opened and appears to be healing at the junction between the right scrotum and the inner right thigh. There is no naye-rectal erythema, no abdominal wall erythema. No necrotizing lesions or crepitus. There is phimosis present with some candidal appearing discharge. NEUROLOGICAL: Awake and alert. No obvious cranial nerve deficits. Motor grossly within normal limits. Normal speech. A/P Problem List: (1) Phimosis ICD Code: N47.1 - Phimosis Status: Chronic (2) Cellulitis of right thigh ICD Code: L03.115 - Cellulitis of right lower limb Status: Acute (3) Type 2 diabetes mellitus ICD Code: E11.9 - Type 2 diabetes mellitus without complications Status: Acute (4) Hyperglycemia ICD Code: R73.9 - Hyperglycemia, unspecified Status: Acute (5) Obesity (BMI 30-39.9) ICD Code: E66.9 - Obesity, unspecified Status: Chronic (6) Severe sepsis ICD Code: A41.9 - Sepsis, unspecified organism; R65.20 - Severe sepsis without septic shock Status: Acute (7) Tobacco abuse ICD Code: Z72.0 - Tobacco use Status: Chronic Assessment and Plan NEURO: Pain secondary to cellulitis Lortab as needed for pain. Patient denies history of oxycodone allergy and states he wishes that to be removed from his record Dilaudid 0.5-1 q3 as needed for breakthrough RESP: Tobacco abuse On room air Tobacco cessation counseling IS q1 hour CV: Lactic acidosis Follow-up lactic acid GI: 1999 ADA diet. FEN/RENAL: Severe Hyperglycemia Pseudohyponatremia Receiving 3 L NS bolus in the ED. NS 120 ml/hr. ID/UROLOGY: Severe sepsis Right thigh and scrotum abscess Leukocytosis Balanitis Chronic Phimosis - he is able to void. Does not appear to be [place] at this time. Margins of cellulitis marked. Obtained ultrasound which did not reveal any abscess CT abd/pelvis 10/02 showed stranding from base of penis to right thigh but no fluid collection. Continue zosyn. Clotrimazole 1% bid for balanitis. Followup blood cultures 10/03. ID and urology consult requested HEME: Monitor CBC ENDO: Diabetes mellitus Monitor bedside glucose every 4 hours and initiate medium dose sliding scale as indicated. Levemir 30 units subcutaneous q. every 12 hourly started 10/04. Hold metformin PROPH: SCDs for DVT prophylaxis. Heparin subcu for DVT prophylaxis. ACCESS: Peripheral IV providing adequate access at this time FULL CODE Consult and transfer to hospitalist service for further medical management. Александр Ortega MD October 04, 2017 17:17
[2017-10-04] MEDS: INSULIN DETEMIR 100 UNITS/ML VIAL SQ SCH (20:10)
[2017-10-04] MEDS: FAMOTIDINE 20 MG TAB PO SCH (20:12)
[2017-10-04] MEDS: SODIUM CHLORIDE 0.9% FLUSH 10 ML FLUSH IV FLUSH PRN (23:53)
[2017-10-05] VITALS (26 sets, daily range): BP systolic 90–119; BP diastolic 41–78; PULSE 66–90; RESP 10–28; TEMP 97.3–98.7; O2SAT 92–99
[2017-10-05] MEDS: INSULIN ASPART SUPPLEMENTAL SCALE SQ SCH ×6 (00:06→20:50)
[2017-10-05] MEDS: POTASSIUM CHLOR 20 MEQ PREMIX 100 ML IV PRN (01:17)
[2017-10-05] MEDS: SODIUM CHLOR 0.9% 1000 ML INJ 1,000 ML IV SCH ×3 (02:40→20:49)
[2017-10-05] MEDS: PIPERACIL-TAZO 3.375 GM PREMIX 50 ML IV SCH ×4 (02:40→20:35)
[2017-10-05] MEDS: CHLORHEXIDINE GLUCONATE 2 % 1 PACK (2 CLOTHS) TOP SCH (04:00)
[2017-10-05] MEDS: HYDROmorphone HCL PF 2 MG/ML VIAL IV PUSH PRN ×7 (04:21→23:59)
[2017-10-05] MEDS: SODIUM CHLORIDE 0.9% FLUSH 10 ML FLUSH IV FLUSH PRN (04:22)
[2017-10-05] MEDS: DOCUSATE SODIUM 50 MG/SENNA 8.6 MG TAB PO SCH ×2 (08:47→20:36)
[2017-10-05] MEDS: INSULIN DETEMIR 100 UNITS/ML VIAL SQ SCH ×2 (08:47→20:37)
[2017-10-05] MEDS: HEPARIN SODIUM - SQ 10,000 UNITS/ML VIAL SQ SCH ×2 (08:47→20:36)
[2017-10-05] MEDS: SODIUM CHLORIDE 0.9% FLUSH 10 ML FLUSH IV FLUSH SCH ×2 (08:48→20:36)
[2017-10-05] MEDS: FAMOTIDINE 20 MG TAB PO SCH ×2 (08:48→20:36)
[2017-10-05 09:07] LABS: AUTOMATED NEUTROPHIL # 4.6 TH/MM3 (1.8-7.7); BASOPHIL % 0.4 % (0.0-2.0); EOSINOPHIL # 0.2 TH/MM3 (0-0.4); EOSINOPHIL % 2.4 % (0.0-4.0); HEMATOCRIT 38.5 % (39.0-51.0); HEMOGLOBIN 13.1 GM/DL (13.0-17.0); LYMPH % 29.5 % (9.0-44.0); LYMPHOCYTE # 2.2 TH/MM3 (1.0-4.8); MEAN CELL VOLUME 85.3 FL (80.0-100.0); MEAN PLATELET VOLUME 8.9 FL (7.0-11.0); MONO % 8.2 % (0.0-8.0); MONOCYTE # 0.6 TH/MM3 (0-0.9); NEUT % 59.5 % (16.0-70.0); PLATELET COUNT 391 TH/MM3 (150-450); RED BLOOD COUNT 4.51 MIL/MM3 (4.50-5.90); RED CELL DISTRIBUTION WIDTH 12.8 % (11.6-17.2); WHITE BLOOD COUNT 7.6 TH/MM3 (4.0-11.0)
[2017-10-05 09:10] LABS: CHLORIDE 102 MEQ/L (98-107); SODIUM (NA) 136 MEQ/L (136-145)
[2017-10-05 09:13] LABS: CALCIUM 8.6 MG/DL (8.5-10.1)
[2017-10-05 09:14] LABS: ALBUMIN 2.3 GM/DL (3.4-5.0); BICARBONATE 27.6 MEQ/L (21.0-32.0); BLOOD UREA NITROGEN 6 MG/DL (7-18); GLUCOSE,RANDOM 179 MG/DL (74-106)
[2017-10-05 09:17] LABS: ALT (GPT) 37 U/L (12-78); AST (GOT) 21 U/L (15-37)
[2017-10-05 09:18] LABS: CREATININE 0.56 MG/DL (0.60-1.30); GLOMERULAR FILTRATION RATE 157 ML/MIN (>89); TOTAL BILIRUBIN ADULT 0.4 MG/DL (0.2-1.0); TOTAL PROTEIN 6.6 GM/DL (6.4-8.2)
[2017-10-05 09:20] LABS: ALKALINE PHOSPHATASE 100 U/L (45-117)
[2017-10-05] MEDS: CLOTRIMAZOLE 1% CREAM 15 GM TOPICAL SCH ×2 (10:10→20:51)
[2017-10-05] MEDS: ACETAMINOPHEN 325 MG TAB PO PRN (11:29)
--- NOTE | 2017-10-05 12:18 | PD.CONS ---
History of Present Illness Service Infectious disease Consult Requested By Dr Mauricio Ortega Reason for Consult Evaluate patient with groin cellulitis Primary Care Physician No Primary Care Physician Diagnoses: History of Present Illness Patient seen and examined. Records reviewed. Patient is a 47-year-old male, has known diabetes, frequently gets boils in the groin area and in the back area, apparently developed an abscess in his scrotum on the right side which spontaneously drained. He was actually following it, and about 3 days prior to admission he noted a little sore in the groin, and on the day of admission he noted swelling, redness and tenderness in his right upper medial thigh. He went to the emergency room, and at that time CT of the abdomen and pelvis showed inflammatory stranding at the base of his penis extending to the medial thigh, and probable enlarged inguinal lymph node. His WBC was normal at that time. Admission was recommended, but the patient left against advice. He received Zosyn and vancomycin, and was given Bactrim. Patient reportedly had some personal matters that he needed to do. He came back on the day of admission for treatment of his current problem. He had some low-grade temps. His WBC is now normal. Urinalysis unremarkable. Ultrasound did not show any evidence of fluid collection. Patient is currently on Zosyn. The area of redness that went down to his right thigh has improved. He still complains of significant pain in the right perineal groin area. Infectious disease consultation has been requested to evaluate the patient. Review of Systems Constitutional: COMPLAINS OF: Fever, Chills Eyes: DENIES: Eye pain Ears, nose, mouth, throat: DENIES: Nasal discharge, Oral lesions, Throat pain, Ear Pain, Sinus Pain Respiratory: DENIES: Cough, Shortness of breath Cardiovascular: DENIES: Chest pain, Palpitations, Dyspnea on Exertion Gastrointestinal: COMPLAINS OF: Diarrhea, DENIES: Abdominal pain, Nausea, Vomiting, Difficulty Swallowing Genitourinary: COMPLAINS OF: Sexual dysfunction, DENIES: Dysuria, Penile Discharge Integumentary: DENIES: Rash Hematologic/lymphatic: DENIES: Lymphadenopathy Neurologic: DENIES: Localized weakness Psychiatric: DENIES: Hallucinations Past Family Social History Allergies: Coded Allergies: tramadol (Verified Allergy, Severe, Nausea/Vomiting, 10/02/17) Past Medical History Type II Diabetes mellitus diagnosed in 2011 Obesity Hepatitis C he states he has previously undergone antiviral therapy in [place] Genital herpes Phimosis in August 2015, follow-up with urology was previously recommended but he stated he could not follow up due to financial constraints/lack of insurance. Prior admission for 4 days in April 2017 for right lower extremity cellulitis with beta strep. Past Surgical History Left inguinal hernia repair with mesh Abscess in groin I&D 2 in [place] in 2011 Active Ordered Medications Current Medications Medications (Trade) Dose Ordered Sig/Lev Route Start Time Stop Time Status Last Admin (Lotrimin 1% Cream) 1 applic Q12HR TOPICAL 10/03/17 09:00 10/05/17 10:10 Sodium Chloride 1,000 ml @ 120 mls/hr Q8H20M IV 10/03/17 07:54 10/05/17 12:04 (NS Flush) 2 ml UNSCH PRN IV FLUSH 10/03/17 08:00 10/05/17 04:22 (NS Flush) 2 ml BID IV FLUSH 10/03/17 09:00 10/05/17 08:48 (Tylenol) 650 mg Q6H PRN PO 10/03/17 08:00 10/05/17 11:29 (Albuterol Neb) 2.5 mg Q2HR NEB PRN INH 10/03/17 08:00 ([facility]) 1 Q361D XX 10/03/17 08:00 10/03/17 20:00 (Chlorhexidine 2% Cloth) 3 pack Taper DAILY@04 TOP 10/04/17 04:00 09/30/18 03:59 10/05/17 04:00 (Chlorhexidine 2% Cloth) 3 pack UNSCH PRN TOP 10/03/17 08:00 (Lila-Colace) 1 tab BID PO 10/03/17 09:00 10/05/17 08:47 (Milk Of Magnesia Liq) 30 ml Q12H PRN PO 10/03/17 08:00 (Senokot) 17.2 mg Q12H PRN PO 10/03/17 08:00 (Dulcolax Supp) 10 mg DAILY PRN RECTAL 10/03/17 08:00 (Lactulose Liq) 30 ml DAILY PRN PO 10/03/17 08:00 (Berlin 7.5-325 Mg) 1 tab Q4H PRN PO 10/03/17 08:30 ([place]lin 7.5-325 Mg) 2 tab Q6H PRN PO 10/03/17 08:30 10/03/17 11:40 (D50w (Vial) Inj) 50 ml UNSCH PRN IV PUSH 10/03/17 08:45 (Glucagon Inj) 1 mg UNSCH PRN OTHER 10/03/17 08:45 (Dilaudid Pf Inj) 0.5 mg Q3H PRN IV PUSH 10/03/17 08:45 10/03/17 17:13 (Dilaudid Pf Inj) 1 mg Q3H PRN IV PUSH 10/03/17 08:45 10/05/17 12:04 (Heparin Inj) 5,000 units Q12HR SQ 10/03/17 09:00 10/05/17 08:47 (NovoLOG SUPPLEMENTAL SCALE) 1 Q4H SQ 10/03/17 12:15 10/05/17 12:04 (Pepcid) 20 mg BID PO 10/04/17 21:00 10/05/17 08:48 Piperacillin Sod/ Tazobactam Sod 50 ml @ 100 mls/hr Q6H IV 10/04/17 14:00 10/05/17 08:47 Potassium Chloride 100 ml @ 50 mls/hr Q2H PRN IV 10/04/17 13:15 Potassium Chloride 100 ml @ 50 mls/hr Q2H PRN IV 10/04/17 13:15 10/05/17 01:17 (K-Lyte Cl Eff) 50 meq UNSCH PRN PO 10/04/17 13:15 Potassium Chloride 100 ml @ 25 mls/hr UNSCH PRN IV 10/04/17 13:15 Potassium Chloride 100 ml @ 50 mls/hr Q2H PRN IV 10/04/17 13:15 Magnesium Sulfate 4 gm/Sodium Chloride 100 ml @ 50 mls/hr UNSCH PRN IV 10/04/17 13:15 (Mag-Ox) 800 mg UNSCH PRN PO 10/04/17 13:15 Magnesium Sulfate 2 gm/Sodium Chloride 100 ml @ 50 mls/hr UNSCH PRN IV 10/04/17 13:15 (K-Phos) 2,000 mg Q4H PRN PO 10/04/17 13:15 Sodium Phosphate 30 mmol/Sodium Chloride 250 ml @ 42 mls/hr UNSCH PRN IV 10/04/17 13:15 (K-Phos) 2,000 mg UNSCH PRN PO/TUBE 10/04/17 13:15 Potassium Phosphate 30 mmol/ Sodium Chloride 260 ml @ 42 mls/hr UNSCH PRN IV 10/04/17 13:15 (Levemir Inj) 30 units Q12HR SQ 10/04/17 21:00 10/05/17 08:47 Family History Non-contributory Social History Smokes half pack of cigarettes per day No alcohol or illicit drug use Physical Exam Vital Signs Vital Signs Date Time Temp Pulse Resp B/P (MAP) Pulse Ox O2 Delivery O2 Flow Rate FiO2 10/05/17 07:00 78 10 96/52 (67) 94 10/05/17 06:00 76 10 96/52 (67) 94 10/05/17 06:00 76 10/05/17 05:21 24 10/05/17 05:00 78 10 96/52 (67) 94 10/05/17 04:36 98.3 84 24 118/78 (91) 95 10/05/17 04:00 80 10/05/17 03:00 80 22 100/56 (71) 94 10/05/17 02:00 78 18 90/53 (65) 95 10/05/17 02:00 78 10/05/17 01:00 82 16 99/41 (60) 92 10/05/17 00:00 84 10/05/17 00:00 97.3 84 18 102/68 (79) 95 10/04/17 23:00 78 19 91/58 (69) 95 10/04/17 22:00 84 10/04/17 22:00 84 17 99/63 (75) 95 10/04/17 21:00 86 16 96/57 (70) 96 10/04/17 20:56 95 21 10/04/17 20:00 83 10/04/17 20:00 98.2 80 20 91/58 (69) 93 10/04/17 18:35 88 20 112/62 (79) 93 10/04/17 18:00 92 10/04/17 17:05 96 22 105/69 (81) 95 10/04/17 16:00 84 18 121/70 (87) 95 5/23/18 16:00 84 10/04/17 15:54 98.4 84 24 103/73 (83) 10/04/17 15:00 82 18 10/04/17 14:00 78 10/04/17 14:00 78 21 10/04/17 12:42 98.0 94 15 98/64 (75) 94 Physical Exam GENERAL: Patient is an obese, well-developed male, awake and alert, not in respiratory distress. SKIN: Warm and dry. No generalized rash, no ecchymoses and no evidence of embolic lesions. HEAD: Atraumatic. Normocephalic. No temporal wasting, or tenderness. EYES: Babbitt conjunctiva. No petechia or hemorrhage. Pupils equal, round and reactive to light. Extraocular movements full and intact. No scleral icterus. No injection or drainage. EARS, NOSE AND THROAT: Nose without bleeding or purulent nasal discharge. No sinus tenderness. Mucous membranes pink and moist. No oral lesions noted. No exudate. No oral thrush. NECK: Trachea midline. Supple and not tender, no meningeal signs CARDIOVASCULAR: Regular rate and rhythm. No murmurs, rubs or gallops heard RESPIRATORY: Clear to auscultation. Breath sounds equal bilaterally. No rales , wheezing or rhonchi ABDOMEN: Soft, non-tender, nondistended. Bowel sounds present and normoactive. No guarding. No rebound. No organomegaly. : Has phimosis. Has some redness in his scrotum but not that swollen, and no induration. There is a small open wound about 1 cm size with some bloody drainage. In the area parallel to this small wound is another smaller wound with very min bloody drainage. EXTREMITIES: No clubbing, cyanosis, or edema. No joint effusion, has good ROM. No calf tenderness. Well perfused and warm. There is a tender indurated area on the medial upper thigh that measures about 3 in x 2 in size, not fluctuant. The area of redness on his R thigh has receded from the ink jordy NEUROLOGICAL: Awake and alert. Cranial nerves grossly intact. Motor grossly within normal limits. PSYCHIATRIC: Normal affect, calm and cooperative. LINE: No evidence of infection Laboratory Laboratory Tests Test 10/05/17 08:30 White Blood Count 7.6 Red Blood Count 4.51 Hemoglobin 13.1 Hematocrit 38.5 Mean Corpuscular Volume 85.3 Mean Corpuscular Hemoglobin 29.0 Mean Corpuscular Hemoglobin Concent 34.0 Red Cell Distribution Width 12.8 Platelet Count 391 Mean Platelet Volume 8.9 Neutrophils (%) (Auto) 59.5 Lymphocytes (%) (Auto) 29.5 Monocytes (%) (Auto) 8.2 Eosinophils (%) (Auto) 2.4 Basophils (%) (Auto) 0.4 Neutrophils # (Auto) 4.6 Lymphocytes # (Auto) 2.2 Monocytes # (Auto) 0.6 Eosinophils # (Auto) 0.2 Basophils # (Auto) 0.0 CBC Comment DIFF FINAL Differential Comment Blood Urea Nitrogen 6 Creatinine 0.56 Random Glucose 179 Total Protein 6.6 Albumin 2.3 Calcium Level 8.6 Alkaline Phosphatase 100 Aspartate Amino Transf (AST/SGOT) 21 Alanine Aminotransferase (ALT/SGPT) 37 Total Bilirubin 0.4 Sodium Level 136 Potassium Level 3.8 Chloride Level 102 Carbon Dioxide Level 27.6 Anion Gap 6 Estimat Glomerular Filtration Rate 157 Date/Time Source Procedure Growth Status 10/03/17 07:40 Blood Peripheral Aerobic Blood Culture - Preliminary NO GROWTH IN 2 DAYS Resulted 10/03/17 07:40 Blood Peripheral Anaerobic Blood Culture - Preliminary NO GROWTH IN 2 DAYS Resulted Result Diagram: 10/05/17 0830 10/05/17 0830 Imaging Last Impressions Soft Tissue Ultrasound 10/03/17 0000 Signed Impressions: CONCLUSION: Nonspecific edematous changes. Assessment and Plan Assessment and Plan IMPRESSION Cellulitis R groin/thigh area, better Small abscess in scrotum that has drained spontaneously Hx recurrent abscess in groin and buttock region DM, seemed to be poorly controlled Obesity Phimosis RECOMMENDATION Since he is improving, I will continue IV Zosyn Urology has been consulted and pending Monitor progress - he is clinically improving If he continues to improve, will use Clinda and Cipro x 14 days to complete his Rx I will follow along with you Thank you for this consultation Discussed Condition With Explained plan to the patient Discussed with Diana Rebollar MD October 05, 2017 12:18
--- NOTE | 2017-10-05 16:45 | MB ---
cc: Javier Fsiher DO DATE: 10/05/2017 HISTORY OF PRESENT ILLNESS: Mr. Smith is a pleasant 47-year-old male who is admitted with right groin cellulitis with scrotal edema. The patient states that he did have an abscess on the right side of the scrotum that opened up about 2 weeks ago and then drained on its own. Over the last few days prior to admission, he noticed that his groin was becoming inflamed with redness and tenderness along the upper thigh/right groin region. Denied any trouble with urination, but he did notice that his foreskin has become tighter and he cannot expose the head of the penis. He is a noncompliant patient and he did leave the emergency room in the past. ALLERGIES: HE HAS ALLERGIES TO TRAMADOL. PAST MEDICAL HISTORY: Includes diabetes, obesity, hepatitis C, genital herpes, phimosis, scrotal abscess. PAST SURGICAL HISTORY: Left inguinal hernia repair with mesh, prior abscess of the groin in 2011. MEDICATIONS: 1. Metformin. 2. Bactrim. FAMILY HISTORY: Noted for diabetes and peripheral retinopathy, as well as MS and heart disease with stroke. SOCIAL HISTORY: He smokes half pack of cigarettes per day. Denies alcohol. He is presently . REVIEW OF SYSTEMS: He notes right groin swelling, some malaise, fever. He denies chest pain or shortness of breath. Denies gait disturbances, bleeding disorders. Denies psychiatric problems. Denies voiding complaints. Does complain of phimosis. The remaining review of systems were reviewed and were negative. PHYSICAL EXAMINATION: VITAL SIGNS: Today, temperature 98.3, heart rate 78, respiratory rate is 10, 96/52 blood pressure, 94% on room air. GENERAL: A well-developed, well-nourished 47-year-old male in no acute distress. HEENT: Head is normocephalic, atraumatic. Pupils equal, round, regular, reactive to light. Extraocular movements are intact. NECK: Supple. HEART: Regular rate and rhythm. LUNGS: Clear. ABDOMEN: Soft, nontender, nondistended. GENITOURINARY: Scrotal edema is present with some phimosis identified. The right groin cellulitis, which has been improving based on the demarcation line placed on admission. EXTREMITIES: Show no evidence of cyanosis, clubbing or edema. LABORATORY DATA: White count 7.6, hemoglobin 13.1, hematocrit 38.5, platelet count of 391. Sodium 136, potassium 3.8, chloride is 102, CO2 is 27.6, BUN is 6, creatinine 0.56, glucose of 179. Urinalysis was negative. IMAGING STUDIES: CT scan of the pelvis performed on 10/02/2017 at that time showed inflammatory stranding in the subcutaneous tissues of the perineal base of the penis extending to the medial thigh. Characteristics of regional cellulitis. There is no discrete fluid collection to suggest an associated abscess. Borderline prominent lymph nodes in the right inguinal region measuring up to 1.6 cm in diameter are reactive. Nonobstructing 5 mm left renal stone. ASSESSMENT AND PLAN: A 47-year-old male with groin cellulitis with recent scrotal cellulitis. Continue IV antibiotics. Recommend scrotal support, warm compresses to the groin and cellulitic area. Continue to observe. I think the patient can be transferred to the floor and monitored there as his white count has normalized and he is afebrile. His blood cultures have both been no growth up to this point in time during the admission. Thank you for the consultation and allowing me to participate in the care of this patient. He can follow up as an outpatient and would recommend a circumcision in the future. DO ILA Pedersen/KATRIN , 04:19 PM , 04:43 PM
--- NOTE | 2017-10-05 17:04 | HHI.PR ---
Subjective Remarks Follow-up severe sepsis/right thigh and groin cellulitis October 05, 2017-patient seen and examined, complaining of severe right groin pain. Case discussed with urology will think patient does have a scrotal cellulitis. Vital stable. Objective Vitals Vital Signs Date Time Temp Pulse Resp B/P (MAP) Pulse Ox O2 Delivery O2 Flow Rate FiO2 10/05/17 07:00 78 10 96/52 (67) 94 10/05/17 06:00 76 10 96/52 (67) 94 10/05/17 06:00 76 10/05/17 05:21 24 10/05/17 05:00 78 10 96/52 (67) 94 10/05/17 04:36 98.3 84 24 118/78 (91) 95 10/05/17 04:00 80 10/05/17 03:00 80 22 100/56 (71) 94 10/05/17 02:00 78 18 90/53 (65) 95 10/05/17 02:00 78 10/05/17 01:00 82 16 99/41 (60) 92 10/05/17 00:00 84 10/05/17 00:00 97.3 84 18 102/68 (79) 95 10/04/17 23:00 78 19 91/58 (69) 95 10/04/17 22:00 84 10/04/17 22:00 84 17 99/63 (75) 95 10/04/17 21:00 86 16 96/57 (70) 96 10/04/17 20:56 95 21 10/04/17 20:00 83 10/04/17 20:00 98.2 80 20 91/58 (69) 93 10/04/17 18:35 88 20 112/62 (79) 93 10/04/17 18:00 92 10/04/17 17:05 96 22 105/69 (81) 95 I/O 10/04/17 10/04/17 10/04/17 10/05/17 10/05/17 10/05/17 07:00 15:00 23:00 07:00 15:00 23:00 Intake Total 2400 ml 400 ml 1900 ml 600 ml Output Total 900 ml 2360 ml 1200 ml Balance 1500 ml 400 ml -460 ml -600 ml Intake Oral 800 ml 750 ml 600 ml IV Total 1600 ml 400 ml 1150 ml Output Urine Total 900 ml 2360 ml 1200 ml # Voids 5 # Bowel Movements 0 Result Diagram: 10/05/17 0830 10/05/17 0830 Imaging Last Impressions Soft Tissue Ultrasound 10/03/17 0000 Signed Impressions: CONCLUSION: Nonspecific edematous changes. Objective Remarks GENERAL: NAD SKIN: Warm and dry. Erythema extending from right thigh to the groin area HEAD: Normocephalic. EYES: No scleral icterus. No injection or drainage. NECK: Supple, trachea midline. No JVD or lymphadenopathy. CARDIOVASCULAR: Regular rate and rhythm without murmurs, gallops, or rubs. RESPIRATORY: Breath sounds equal bilaterally. No accessory muscle use. GASTROINTESTINAL: Abdomen soft, non-tender, nondistended. MUSCULOSKELETAL: No cyanosis, or edema. BACK: Nontender without obvious deformity. No CVA tenderness. A/P Problem List: (1) Cellulitis of right thigh ICD Code: L03.115 - Cellulitis of right lower limb Status: Acute (2) Severe sepsis ICD Code: A41.9 - Sepsis, unspecified organism; R65.20 - Severe sepsis without septic shock Status: Acute (3) Type 2 diabetes mellitus ICD Code: E11.9 - Type 2 diabetes mellitus without complications Status: Acute (4) Phimosis ICD Code: N47.1 - Phimosis Status: Chronic (5) Diabetes mellitus ICD Code: E11.9 - Type 2 diabetes mellitus without complications Assessment and Plan 47-year-old man with Tobacco abuse Tobacco cessation counseling Lactic acidosis Resolved Severe Hyperglycemia Pseudohyponatremia Resolved ID/UROLOGY: Severe sepsis Right thigh and groin cellulitis Small abscess in scrotal area Leukocytosis Balanitis Chronic Phimosis - he is able to void. Currently on Zosyn; If he continues to improve, will use Clinda and Cipro x 14 days Appreciate input from infectious disease specialist, urology Does not appear to be Fourniers at this time. Diabetes mellitus Continue medium dose sliding scale as indicated. Levemir 30 units subcutaneous q. every 12 hourly started 10/04. Hold metformin PROPH: SCDs for DVT prophylaxis. Heparin subcu for DVT prophylaxis. Sameer Espinoza MD October 05, 2017 17:04
[2017-10-05] MEDS ORDERED: ALPRAZolam 0.25 MG TAB PO ONE (21:30)
[2017-10-06] VITALS: BP 136/63; PULSE 66; RESP 15; TEMP 99.1; O2SAT 96
[2017-10-06] MEDS: INSULIN ASPART SUPPLEMENTAL SCALE SQ SCH ×6 (00:15→20:15)
[2017-10-06] MEDS: CHLORHEXIDINE GLUCONATE 2 % 1 PACK (2 CLOTHS) TOP SCH (03:09)
[2017-10-06] MEDS: HYDROmorphone HCL PF 2 MG/ML VIAL IV PUSH PRN ×6 (03:21→22:14)
[2017-10-06] MEDS: PIPERACIL-TAZO 3.375 GM PREMIX 50 ML IV SCH ×4 (03:22→21:30)
[2017-10-06] MEDS: SODIUM CHLOR 0.9% 1000 ML INJ 1,000 ML IV SCH ×3 (03:26→21:31)
[2017-10-06 08:00] VITALS: BP 131/77; PULSE 79; RESP 20; TEMP 97; O2SAT 96
[2017-10-06] MEDS: HEPARIN SODIUM - SQ 10,000 UNITS/ML VIAL SQ SCH ×2 (08:10→21:32)
[2017-10-06] MEDS: SODIUM CHLORIDE 0.9% FLUSH 10 ML FLUSH IV FLUSH SCH ×2 (08:10→21:30)
[2017-10-06] MEDS: DOCUSATE SODIUM 50 MG/SENNA 8.6 MG TAB PO SCH ×2 (08:10→21:30)
[2017-10-06] MEDS: FAMOTIDINE 20 MG TAB PO SCH ×2 (08:11→21:30)
[2017-10-06] MEDS: INSULIN DETEMIR 100 UNITS/ML VIAL SQ SCH ×2 (08:11→21:32)
[2017-10-06] MEDS: CLOTRIMAZOLE 1% CREAM 15 GM TOPICAL SCH (09:00)
--- NOTE | 2017-10-06 10:01 | HHI.PR ---
Subjective Remarks Follow-up severe sepsis/right thigh and groin cellulitis October 05, 2017-patient seen and examined, complaining of severe right groin pain. Case discussed with urology will think patient does have a scrotal cellulitis. Vital stable. October 06, 2017-patient seen and examined, the patient reports some improvement of right groin cellulitis, however complains of pain. Also he is requesting something for anxiety Objective Vitals Vital Signs Date Time Temp Pulse Resp B/P (MAP) Pulse Ox O2 Delivery O2 Flow Rate FiO2 10/06/17 08:00 97.0 79 20 131/77 (95) 96 10/06/17 00:00 99.1 66 15 136/63 (87) 96 10/05/17 23:00 68 20 95 10/05/17 23:00 68 10/05/17 22:00 76 15 105/60 (75) 96 10/05/17 22:00 76 10/05/17 21:19 20 10/05/17 21:00 88 10/05/17 21:00 88 24 106/66 (79) 93 10/05/17 20:00 88 10/05/17 20:00 88 24 119/72 (88) 99 10/05/17 19:00 89 10/05/17 19:00 98.6 86 24 107/67 (80) 98 10/05/17 18:00 78 10/05/17 18:00 78 14 93 10/05/17 17:53 78 10/05/17 17:53 98.7 78 15 119/72 (88) 98 10/05/17 17:00 68 18 95 10/05/17 16:00 93 21 10/05/17 16:00 66 10/05/17 16:00 66 19 97 10/05/17 15:00 70 20 93 10/05/17 14:00 76 10/05/17 14:00 76 15 10/05/17 13:00 78 19 92 10/05/17 12:00 80 10/05/17 12:00 80 14 95 10/05/17 11:56 86 10/05/17 11:56 86 28 109/68 (82) 95 I/O 5/24/18 5/24/18 5/24/18 5/25/18 5/25/18 5/25/18 07:00 15:00 23:00 07:00 15:00 23:00 Intake Total 600 ml 100 ml 1923 ml 680 ml Output Total 1200 ml 2000 ml 1450 ml Balance -600 ml 100 ml -77 ml -770 ml Intake Oral 600 ml 680 ml IV Total 100 ml 1923 ml Output Urine Total 1200 ml 2000 ml 1450 ml # Voids 5 # Bowel Movements 0 1 Result Diagram: 10/05/1782910/05/1730 Objective Remarks GENERAL: NAD SKIN: Warm and dry. Erythema extending from right thigh to the groin area HEAD: Normocephalic. EYES: No scleral icterus. No injection or drainage. NECK: Supple, trachea midline. No JVD or lymphadenopathy. CARDIOVASCULAR: Regular rate and rhythm without murmurs, gallops, or rubs. RESPIRATORY: Breath sounds equal bilaterally. No accessory muscle use. GASTROINTESTINAL: Abdomen soft, non-tender, nondistended. MUSCULOSKELETAL: No cyanosis, or edema. BACK: Nontender without obvious deformity. No CVA tenderness. A/P Problem List: (1) Cellulitis of right thigh ICD Code: L03.115 - Cellulitis of right lower limb Status: Acute (2) Severe sepsis ICD Code: A41.9 - Sepsis, unspecified organism; R65.20 - Severe sepsis without septic shock Status: Acute (3) Type 2 diabetes mellitus ICD Code: E11.9 - Type 2 diabetes mellitus without complications Status: Acute (4) Phimosis ICD Code: N47.1 - Phimosis Status: Chronic (5) Diabetes mellitus ICD Code: E11.9 - Type 2 diabetes mellitus without complications Assessment and Plan 47-year-old man with Tobacco abuse Tobacco cessation counseling provided Lactic acidosis Resolved Severe Hyperglycemia Pseudohyponatremia Resolved ID/UROLOGY: Severe sepsis Right thigh and groin cellulitis Small abscess in scrotal area Leukocytosis Balanitis Chronic Phimosis - he is able to void. Currently on Zosyn; If he continues to improve, will use Clinda and Cipro x 14 days Appreciate input from infectious disease specialist, urology Does not appear to be Fourniers at this time. Diabetes mellitus Continue medium dose sliding scale as indicated. Levemir 30 units subcutaneous q. every 12 hourly started 10/04. Awaiting for clinical document improvement educator nurse Hold metformin PROPH: SCDs for DVT prophylaxis. Heparin subcu for DVT prophylaxis. Sameer Espinoza MD October 06, 2017 10:01
[2017-10-06 11:37] VITALS: BP 128/72; PULSE 76; RESP 20; TEMP 97.2; O2SAT 96
--- NOTE | 2017-10-06 13:37 | HHI.IDPN ---
Subjective Subjective Remarks Patient is a 47-year-old male, has known diabetes, frequently gets boils in the groin area and in the back area, apparently developed an abscess in his scrotum on the right side which spontaneously drained. He was actually following it, and about 3 days prior to admission he noted a little sore in the groin, and on the day of admission he noted swelling, redness and tenderness in his right upper medial thigh. He went to the emergency room, and at that time CT of the abdomen and pelvis showed inflammatory stranding at the base of his penis extending to the medial thigh, and probable enlarged inguinal lymph node. His WBC was normal at that time. Admission was recommended, but the patient left against advice. He received Zosyn and vancomycin, and was given Bactrim. Patient reportedly had some personal matters that he needed to do. He came back on the day of admission for treatment of his current problem. He had some low-grade temps. His WBC is now normal. Urinalysis unremarkable. Ultrasound did not show any evidence of fluid collection. Patient is currently on Zosyn. The area of redness that went down to his right thigh has improved. He still complains of significant pain in the right perineal groin area. Infectious disease consultation has been requested to evaluate the patient. Notes reviewed Temps ok Still with pain R groin Spoke with Voiding ok Urology notes reviewed WBC normal Creat ok BC negative Antibiotics Zosyn Current Medications Medications (Trade) Dose Ordered Sig/Lev Route Start Time Stop Time Status Last Admin (Lotrimin 1% Cream) 1 applic Q12HR TOPICAL 10/03/17 09:00 10/06/17 09:00 Sodium Chloride 1,000 ml @ 120 mls/hr Q8H20M IV 10/03/17 07:54 10/06/17 10:54 (NS Flush) 2 ml UNSCH PRN IV FLUSH 10/03/17 08:00 10/05/17 04:22 (NS Flush) 2 ml BID IV FLUSH 10/03/17 09:00 10/05/17 20:36 (Tylenol) 650 mg Q6H PRN PO 10/03/17 08:00 10/05/17 11:29 (Albuterol Neb) 2.5 mg Q2HR NEB PRN INH 10/03/17 08:00 ([facility]) 1 Q361D XX 10/03/17 08:00 10/03/17 20:00 (Chlorhexidine 2% Cloth) 3 pack Taper DAILY@04 TOP 10/04/17 04:00 09/30/18 03:59 10/05/17 04:00 (Chlorhexidine 2% Cloth) 3 pack UNSCH PRN TOP 10/03/17 08:00 (Lila-Colace) 1 tab BID PO 10/03/17 09:00 10/06/17 08:10 (Milk Of Magnesia Liq) 30 ml Q12H PRN PO 10/03/17 08:00 (Senokot) 17.2 mg Q12H PRN PO 10/03/17 08:00 (Dulcolax Supp) 10 mg DAILY PRN RECTAL 10/03/17 08:00 (Lactulose Liq) 30 ml DAILY PRN PO 10/03/17 08:00 ([place] 7.5-325 Mg) 1 tab Q4H PRN PO 10/03/17 08:30 ([place] 7.5-325 Mg) 2 tab Q6H PRN PO 10/03/17 08:30 10/03/17 11:40 (D50w (Vial) Inj) 50 ml UNSCH PRN IV PUSH 10/03/17 08:45 (Glucagon Inj) 1 mg UNSCH PRN OTHER 10/03/17 08:45 (Dilaudid Pf Inj) 0.5 mg Q3H PRN IV PUSH 10/03/17 08:45 10/03/17 17:13 (Dilaudid Pf Inj) 1 mg Q3H PRN IV PUSH 10/03/17 08:45 10/06/17 10:48 (Heparin Inj) 5,000 units Q12HR SQ 10/03/17 09:00 10/06/17 08:10 (NovoLOG SUPPLEMENTAL SCALE) 1 Q4H SQ 10/03/17 12:15 10/05/17 20:50 (Pepcid) 20 mg BID PO 10/04/17 21:00 10/06/17 08:11 Piperacillin Sod/ Tazobactam Sod 50 ml @ 100 mls/hr Q6H IV 10/04/17 14:00 10/06/17 12:20 (Levemir Inj) 30 units Q12HR SQ 10/04/17 21:00 10/06/17 08:11 (Xanax) 0.5 mg Q12HR PO 10/06/17 21:00 Lines PIV no evidence of infection Past Medical History Type II Diabetes mellitus diagnosed in 2011 Obesity Hepatitis C he states he has previously undergone antiviral therapy in [place] Genital herpes Phimosis in August 2015, follow-up with urology was previously recommended but he stated he could not follow up due to financial constraints/lack of insurance. Prior admission for 4 days in April 2017 for right lower extremity cellulitis with beta strep. Past Surgical History Left inguinal hernia repair with mesh Abscess in groin I&D 2 in [place] in 2011 Allergies: Coded Allergies: tramadol (Verified Allergy, Severe, Nausea/Vomiting, 10/02/17) Objective . Vital Signs Date Time Temp Pulse Resp B/P (MAP) Pulse Ox O2 Delivery O2 Flow Rate FiO2 10/06/17 11:37 97.2 76 20 128/72 (90) 96 10/06/17 11:18 20 10/06/17 08:00 97.0 79 20 131/77 (95) 96 10/06/17 00:00 99.1 66 15 136/63 (87) 96 10/05/17 23:00 68 20 95 10/05/17 23:00 68 10/05/17 22:00 76 15 105/60 (75) 96 10/05/17 22:00 76 10/05/17 21:00 88 10/05/17 21:00 88 24 106/66 (79) 93 10/05/17 20:00 88 10/05/17 20:00 88 24 119/72 (88) 99 10/05/17 19:00 89 10/05/17 19:00 98.6 86 24 107/67 (80) 98 10/05/17 18:00 78 10/05/17 18:00 78 14 93 10/05/17 17:53 78 10/05/17 17:53 98.7 78 15 119/72 (88) 98 10/05/17 17:00 68 18 95 10/05/17 16:00 93 21 10/05/17 16:00 66 10/05/17 16:00 66 19 97 10/05/17 15:00 70 20 93 10/05/17 14:00 76 10/05/17 14:00 76 15 . Laboratory Tests Test 10/05/17 08:30 White Blood Count 7.6 TH/MM3 Red Blood Count 4.51 MIL/MM3 Hemoglobin 13.1 GM/DL Hematocrit 38.5 % Mean Corpuscular Volume 85.3 FL Mean Corpuscular Hemoglobin 29.0 PG Mean Corpuscular Hemoglobin Concent 34.0 % Red Cell Distribution Width 12.8 % Platelet Count 391 TH/MM3 Mean Platelet Volume 8.9 FL Neutrophils (%) (Auto) 59.5 % Lymphocytes (%) (Auto) 29.5 % Monocytes (%) (Auto) 8.2 % Eosinophils (%) (Auto) 2.4 % Basophils (%) (Auto) 0.4 % Neutrophils # (Auto) 4.6 TH/MM3 Lymphocytes # (Auto) 2.2 TH/MM3 Monocytes # (Auto) 0.6 TH/MM3 Eosinophils # (Auto) 0.2 TH/MM3 Basophils # (Auto) 0.0 TH/MM3 CBC Comment DIFF FINAL Differential Comment Laboratory Tests Test 10/05/17 08:30 Blood Urea Nitrogen 6 MG/DL Creatinine 0.56 MG/DL Random Glucose 179 MG/DL Total Protein 6.6 GM/DL Albumin 2.3 GM/DL Calcium Level 8.6 MG/DL Alkaline Phosphatase 100 U/L Aspartate Amino Transf (AST/SGOT) 21 U/L Alanine Aminotransferase (ALT/SGPT) 37 U/L Total Bilirubin 0.4 MG/DL Sodium Level 136 MEQ/L Potassium Level 3.8 MEQ/L Chloride Level 102 MEQ/L Carbon Dioxide Level 27.6 MEQ/L Anion Gap 6 MEQ/L Estimat Glomerular Filtration Rate 157 ML/MIN Imaging Last Impressions Soft Tissue Ultrasound 10/03/17 0000 Signed Impressions: CONCLUSION: Nonspecific edematous changes. Physical Exam GENERAL: awake and alert, not in respiratory distress. SKIN: Cool and dry. No generalized rash, no ecchymoses and no evidence of embolic lesions. HEAD: Atraumatic. Normocephalic. No temporal wasting, or tenderness. EYES: [place] conjunctiva. No petechia or hemorrhage. Pupils equal, round and reactive to light. Extraocular movements full and intact. No scleral icterus. No injection or drainage. EARS, NOSE AND THROAT: Nose without bleeding or purulent nasal discharge. No sinus tenderness. Mucous membranes pink and moist. No oral lesions noted. No exudate. No oral thrush. NECK: Trachea midline. Supple and not tender, no meningeal signs CARDIOVASCULAR: Regular rate and rhythm. No murmurs, rubs or gallops heard RESPIRATORY: Clear to auscultation. Breath sounds equal bilaterally. No rales , wheezing or rhonchi ABDOMEN: Soft, non-tender, nondistended. Bowel sounds present and normoactive. No guarding. No rebound. No organomegaly. : Has phimosis. Minimal redness in scrotum, no induration. The swelling in medial thigh is better, and intensity of redness much improved. EXTREMITIES: No clubbing, cyanosis, or edema. No joint effusion, has good ROM. No calf tenderness. Well perfused and warm. NEUROLOGICAL: Awake and alert. Cranial nerves grossly intact. Motor grossly within normal limits. PSYCHIATRIC: Normal affect, calm and cooperative. LINE: No evidence of infection Assessment & Plan Remarks IMPRESSION Cellulitis R groin/thigh area, better Small abscess in scrotum that has drained spontaneously Hx recurrent abscess in groin and buttock region DM, seemed to be poorly controlled Obesity Phimosis RECOMMENDATION Continue IV Zosyn today Urology has been consulted and pending Monitor progress - he is clinically improving If he continues to improve, switch to oral Abx - will use Clinda and Cipro x 14 days to complete his Rx Spoke with D/W Dr Olga Chambers,Diana Kirk MD October 06, 2017 13:37
[2017-10-06 15:43] VITALS: BP 130/76; PULSE 89; RESP 20; TEMP 98.2; O2SAT 98
[2017-10-06 20:00] VITALS: BP 114/70; PULSE 89; RESP 16; TEMP 96.8; O2SAT 97
[2017-10-06] MEDS: ALPRAZolam 0.5 MG TAB PO SCH (21:30)
[2017-10-07] VITALS: BP 150/70; PULSE 90; RESP 15; TEMP 99; O2SAT 97
[2017-10-07] MEDS: INSULIN ASPART SUPPLEMENTAL SCALE SQ SCH ×3 (00:15→08:15)
[2017-10-07] MEDS: PIPERACIL-TAZO 3.375 GM PREMIX 50 ML IV SCH ×2 (00:54→09:36)
[2017-10-07] MEDS: CLOTRIMAZOLE 1% CREAM 15 GM TOPICAL SCH ×2 (00:54→09:17)
[2017-10-07] MEDS: CHLORHEXIDINE GLUCONATE 2 % 1 PACK (2 CLOTHS) TOP SCH (01:25)
[2017-10-07] MEDS: HYDROmorphone HCL PF 2 MG/ML VIAL IV PUSH PRN ×3 (01:41→09:37)
[2017-10-07] MEDS: SODIUM CHLOR 0.9% 1000 ML INJ 1,000 ML IV SCH (03:34)
[2017-10-07 06:00] VITALS: RESP 20
[2017-10-07 07:06] LABS: AUTOMATED NEUTROPHIL # 4.6 TH/MM3 (1.8-7.7); BASOPHIL % 0.4 % (0.0-2.0); EOSINOPHIL # 0.2 TH/MM3 (0-0.4); EOSINOPHIL % 2.2 % (0.0-4.0); HEMATOCRIT 36.8 % (39.0-51.0); HEMOGLOBIN 12.2 GM/DL (13.0-17.0); LYMPH % 23.8 % (9.0-44.0); LYMPHOCYTE # 1.7 TH/MM3 (1.0-4.8); MEAN CELL VOLUME 85.4 FL (80.0-100.0); MEAN CORPUSCULAR HEMOGLOBIN 28.4 PG (27.0-34.0); MEAN CORPUSCULAR HGB CONC 33.3 % (32.0-36.0); MEAN PLATELET VOLUME 7.9 FL (7.0-11.0); MONO % 9.1 % (0.0-8.0); MONOCYTE # 0.7 TH/MM3 (0-0.9); NEUT % 64.5 % (16.0-70.0); PLATELET COUNT 335 TH/MM3 (150-450); RED CELL DISTRIBUTION WIDTH 12.3 % (11.6-17.2); WHITE BLOOD COUNT 7.3 TH/MM3 (4.0-11.0)
[2017-10-07] MEDS: ACETAMINOPHEN 325 MG TAB PO PRN (07:21)
[2017-10-07 07:37] LABS: CALCIUM 8.5 MG/DL (8.5-10.1)
[2017-10-07 07:40] LABS: CREATININE 0.43 MG/DL (0.60-1.30)
[2017-10-07] MEDS: SODIUM CHLORIDE 0.9% FLUSH 10 ML FLUSH IV FLUSH SCH (09:00)
[2017-10-07] MEDS: INSULIN DETEMIR 100 UNITS/ML VIAL SQ SCH (09:12)
[2017-10-07] MEDS: DOCUSATE SODIUM 50 MG/SENNA 8.6 MG TAB PO SCH (09:13)
[2017-10-07] MEDS: FAMOTIDINE 20 MG TAB PO SCH (09:14)
[2017-10-07] MEDS: ALPRAZolam 0.5 MG TAB PO SCH (09:14)
[2017-10-07] MEDS: HEPARIN SODIUM - SQ 10,000 UNITS/ML VIAL SQ SCH (09:15)
[2017-10-07] MEDS: ACETAMINOPHEN/HYDROcodone 325 MG/7.5 MG TAB PO PRN (09:25)
--- NOTE | 2017-10-07 09:41 | HHI.PR ---
Subjective Remarks Follow-up severe sepsis/right thigh and groin cellulitis October 05, 2017-patient seen and examined, complaining of severe right groin pain. Case discussed with urology will think patient does have a scrotal cellulitis. Vital stable. October 06, 2017-patient seen and examined, the patient reports some improvement of right groin cellulitis, however complains of pain. Also he is requesting something for anxiety October 07, 2017-patient seen and examined, no acute event overnight, however when patient was told that he was going to go home he started crying and stated he wanted to stay because the pain in his right groin is still not controlled. Patient states he does have money to pay his antibiotics. Objective Vitals Vital Signs Date Time Temp Pulse Resp B/P (MAP) Pulse Ox O2 Delivery O2 Flow Rate FiO2 10/07/17 06:00 20 10/07/17 00:00 99.0 90 15 150/70 (96) 97 10/06/17 20:00 96.8 89 16 114/70 (85) 97 10/06/17 15:43 98.2 89 20 130/76 (94) 98 10/06/17 11:37 97.2 76 20 128/72 (90) 96 I/O 10/06/17 10/06/17 10/06/17 10/07/17 10/07/17 10/07/17 07:00 15:00 23:00 07:00 15:00 23:00 Intake Total 680 ml 1440 ml 500 ml Output Total 1450 ml 2300 ml 1200 ml Balance -770 ml -860 ml -700 ml Intake Oral 680 ml 1440 ml 500 ml Output Urine Total 1450 ml 2300 ml 1200 ml # Voids 3 # Bowel Movements 1 0 Result Diagram: 10/07/17 0637 10/07/17 0637 Imaging Last Impressions Soft Tissue Ultrasound 10/03/17 0000 Signed Impressions: CONCLUSION: Nonspecific edematous changes. Objective Remarks GENERAL: NAD SKIN: Warm and dry. Improving erythema extending from right thigh to the groin area HEAD: Normocephalic. EYES: No scleral icterus. No injection or drainage. NECK: Supple, trachea midline. No JVD or lymphadenopathy. CARDIOVASCULAR: Regular rate and rhythm without murmurs, gallops, or rubs. RESPIRATORY: Breath sounds equal bilaterally. No accessory muscle use. GASTROINTESTINAL: Abdomen soft, non-tender, nondistended. MUSCULOSKELETAL: No cyanosis, or edema. BACK: Nontender without obvious deformity. No CVA tenderness. Procedures None A/P Problem List: (1) Cellulitis of right thigh ICD Code: L03.115 - Cellulitis of right lower limb Status: Acute (2) Severe sepsis ICD Code: A41.9 - Sepsis, unspecified organism; R65.20 - Severe sepsis without septic shock Status: Acute (3) Type 2 diabetes mellitus ICD Code: E11.9 - Type 2 diabetes mellitus without complications Status: Acute (4) Phimosis ICD Code: N47.1 - Phimosis Status: Chronic (5) Diabetes mellitus ICD Code: E11.9 - Type 2 diabetes mellitus without complications Assessment and Plan 47-year-old man with Tobacco abuse Tobacco cessation counseling provided Lactic acidosis Resolved Severe Hyperglycemia Pseudohyponatremia Resolved ID/UROLOGY: Severe sepsis Right thigh and groin cellulitis Small abscess in scrotal area Leukocytosis Balanitis Chronic Phimosis - he is able to void. Currently on Zosyn; will use Clinda and Cipro x 14 days Appreciate input from infectious disease specialist, urology Does not appear to be [place] at this time. Diabetes mellitus Continue medium dose sliding scale as indicated. Levemir 30 units subcutaneous q. every 12 hourly started 10/04. Appreciate input from patient educator nurse Hold metformin PROPH: SCDs for DVT prophylaxis. Heparin subcu for DVT prophylaxis. Sameer Espinoza MD October 07, 2017 09:41
[2017-10-07] MEDS ORDERED: METF500T PO (09:44)
[2017-10-07] MEDS ORDERED: CLIN300C5 PO (09:44)
[2017-10-07] MEDS ORDERED: CIPR-9 PO (09:44)
--- NOTE | 2017-10-07 09:48 | HHI.DS ---
Discharge Summary Admission Date October 03, 2017 at 07:23 Discharge Date: October 07, 2017 Admitting Diagnosis Cellulitis, sepsis, hyperglycemia (1) Cellulitis of right thigh ICD Code: L03.115 - Cellulitis of right lower limb Status: Acute (2) Severe sepsis ICD Code: A41.9 - Sepsis, unspecified organism; R65.20 - Severe sepsis without septic shock Status: Acute (3) Type 2 diabetes mellitus ICD Code: E11.9 - Type 2 diabetes mellitus without complications Status: Acute (4) Phimosis ICD Code: N47.1 - Phimosis Status: Chronic (5) Diabetes mellitus ICD Code: E11.9 - Type 2 diabetes mellitus without complications Procedures None Brief History - From Admission 47-year-old male with past medical history of diabetes, hepatitis C, obesity who presented to [facility] yesterday with R groin/thigh cellulitis. He says he had a abscess on his right scrotum that "opened up" about 2 weeks ago and drained. He states he looked at the area at 5 am on 10/02 and it was "a little sore" but looked fine and then at 11 am he noticed swelling, redness and tenderness in medial aspect of right upper thigh, just below inguinal ligament. He came to [facility] ED where WBC was 9.9, glucose was 658, lactic acid 3.3. He was afebrile. CT was obtained and there was inflammatory stranding at the base of the penis and extending to the medial thigh. There was no abscess. ED physician recommended admission but patient states he left AMA due to a family emergency. He did receive Zosyn, Vancomycin, and insulin 10 units subcut prior to leaving [place]. He has taken one dose of bactrim since discharge. He has not taken anything for his glucose because metformin was held due to IV contrast administration. He returns stating "I told the ED doctor I would come back". His temp is 100.0. He states the pain and redness in right upper thigh is worse. CBC/BMP: 10/07/17 0637 10/07/17 0637 Significant Findings Laboratory Tests Test 10/05/17 08:30 10/07/17 06:37 Hematocrit 38.5 % (39.0-51.0) 36.8 % (39.0-51.0) Monocytes (%) (Auto) 8.2 % (0.0-8.0) 9.1 % (0.0-8.0) Blood Urea Nitrogen 6 MG/DL (7-18) 5 MG/DL (7-18) Creatinine 0.56 MG/DL (0.60-1.30) 0.43 MG/DL (0.60-1.30) Random Glucose 179 MG/DL (74-106) Albumin 2.3 GM/DL (3.4-5.0) Red Blood Count 4.30 MIL/MM3 (4.50-5.90) Hemoglobin 12.2 GM/DL (13.0-17.0) Chloride Level 108 MEQ/L (98-107) Imaging Last Impressions Soft Tissue Ultrasound 10/03/17 0000 Signed Impressions: CONCLUSION: Nonspecific edematous changes. PE at Discharge GENERAL: NAD SKIN: Warm and dry. Improving erythema extending from right thigh to the groin area HEAD: Normocephalic. EYES: No scleral icterus. No injection or drainage. NECK: Supple, trachea midline. No JVD or lymphadenopathy. CARDIOVASCULAR: Regular rate and rhythm without murmurs, gallops, or rubs. RESPIRATORY: Breath sounds equal bilaterally. No accessory muscle use. GASTROINTESTINAL: Abdomen soft, non-tender, nondistended. MUSCULOSKELETAL: No cyanosis, or edema. BACK: Nontender without obvious deformity. No CVA tenderness. Hospital Course While in hospital, patient was treated for: Tobacco abuse Tobacco cessation counseling provided Lactic acidosis Resolved Severe Hyperglycemia Pseudohyponatremia Resolved Severe sepsis-resolved Right thigh and groin cellulitis Small abscess in scrotal area Leukocytosis-resolved Balanitis Chronic Phimosis - he is able to void. Started on IV antibiotics including vancomycin and Zosyn; however continue on Zosyn but patient will be discharged home on Clinda and Cipro x 14 days to significant improvement of right-sided groin cellulitis Appreciate input from infectious disease specialist, urology Does not appear to be [place] at this time. Diabetes mellitus Continue medium dose sliding scale as indicated. Levemir 30 units subcutaneous q. every 12 hourly started 10/04. Appreciate input from solder technician nurse Hold metformin, which will be resumed on discharge PROPH: SCDs for DVT prophylaxis. Heparin subcu for DVT prophylaxis. Pt Condition on Discharge: Good Discharge Disposition: Discharge Home Discharge Time: <= 30 minutes Discharge Instructions DIET: Follow Instructions for: Diabetic Diet Activities you can perform: Regular-No Restrictions Follow up Referrals: PCP Follow-up - 1 Week New Medications: Ciprofloxacin (Cipro) 500 Mg Tab 500 MG PO BID for Infection, #28 TAB 0 Refills Clindamycin (Clindamycin) 300 Mg Cap 300 MG PO Q6H for Infection, #56 CAP 0 Refills Hydrocodone-Acetaminophen ([place]) 7.5-325 mg Tab 1 TAB PO Q6H PRN for PAIN, #20 TAB 0 Refills Continued Medications: Metformin (Metformin) 500 Mg Tab 500 MG PO BIDPC for Blood Sugar Management, #60 TAB 0 Refills With meals Metformin (Metformin) 500 Mg Tab 500 MG PO BIDPC for Blood Sugar Management, #60 TAB 3 Refills (This prescription has been renewed) Discontinued Medications: Sulfamethoxazole-Trimethoprim (Bactrim DS) 800-160 Mg Tab 1 TAB PO BID for Infection, #20 TAB 0 Refills Sameer Espinoza MD October 07, 2017 09:48
[2017-10-07] MEDS ORDERED: HYDR-3288 PO (09:49)
[2017-10-10 09:15] LABS: HCV RNA PCR IU/ML LESS THAN 15 IU/mL (Not Detected)
== END 2017-10-07 12:15 | disposition home or self-care (01) | DRG 872 ==
LOC: PHED 06:31 → PHEDA 07:23 → PHICU 13:50 → PH3A 10-05 23:29
PROVIDERS: ADMIT Hospitalist; ATTEND Hospitalist
DX: A41.9 Sepsis, unspecified organism (principal); E87.2 Acidosis; L03.115 Cellulitis of right lower limb; L02.415 Cutaneous abscess of right lower limb; E11.65 Type 2 diabetes mellitus with hyperglycemia; Z79.84 Long term (current) use of oral hypoglycemic drugs; R65.20 Severe sepsis without septic shock; N47.1 Phimosis; E66.9 Obesity, unspecified; Z68.37 Body mass index [BMI] 37.0-37.9, adult; N49.2 Inflammatory disorders of scrotum; N48.1 Balanitis; F17.210 Nicotine dependence, cigarettes, uncomplicated; Z83.3 Family history of diabetes mellitus; Z82.1 Family history of blindness and visual loss; Z82.49 Family history of ischemic heart disease and other diseases of the circulatory system; Z82.3 Family history of stroke; Z91.19 Patient's noncompliance with other medical treatment and regimen
CPT/HCPCS: 76937; 76999; 80048; 80053; 81001; 82010; 82550; 82805; 82948; 83605; 83735; 84100; 85025; 87040; 87522; 87641; 87902; 94150; 99291; J1170; J1644; J1815; J2543; J3370; J3480; J7030; J7050